=== PATIENT | female | born 1955 | race Caucasian/White ===

== ENCOUNTER 2016-12-29 14:23 | Emergency (ER) | payer OTHER ==
[2016-12-29 14:37] VITALS: BMI 32.9
[2016-12-29] MEDS ORDERED: ASPIRIN 81 MG CHEWABLE TABLETS PO ONE (14:44)
--- NOTE | 2016-12-29 14:44 | PDOC ---
History of Present Illness <Kevin Montes - Last Filed: 12/29/16 18:04> - History of Present Illness Initial Comments: 12/29/16 16:06 The patient is a 61 year old female with a past medical hx of substance abuse ( chronic opioid use and dependency), anxiety, seizures, hypothyroidism, hyperlipidemia, hypertension, 3 [place], and former heroin use who presents to the ED complaining of left sided chest pain. The patient denies any associated symptoms. She notes she uses a wheelchair to ambulate because she needs double total knee replacements. The patient denies SOB, chills, fever The patient denies nausea, vomiting Allergies: Penicillin, Phenobarbita <Jaelyn Stapleton - Last Filed: 12/29/16 18:15> - General Chief Complaint: Chest Pain Stated Complaint: CHEST PAIN Time Seen by Provider: 12/29/16 14:43 Past History - Past Medical History Anemia: No Asthma: No Cancer: No Cardiac Disorders: Yes ([place]) CVA: No COPD: No Dementia: No Diabetes: No GI Disorders: No Disorders: No HTN: Yes Hypercholesterolemia: Yes Liver Disease: No Psychiatric Problems: Yes (anxiety disorder) Suicide Attempt (Hx): No Seizures: Yes Thyroid Disease: Yes (Hypothyroid) - Surgical History Lung Surgery: Yes (L. Lung) - Immunization History Immunization Up to Date: Yes - Psycho/Social/Smoking Cessation Hx Anxiety: No Suicidal Ideation: No Smoking History: Current every day smoker Have you smoked in the past 12 months: Yes Number of Cigarettes Smoked Daily: 3 If you are a former smoker, when did you quit?: 03/18/15 Information on smoking cessation initiated: No 'Breaking Loose' booklet given: 07/07/16 Hx Alcohol Use: No Drug/Substance Use Hx: No Substance Use Type: None, Prescribed Hx Substance Use Treatment: Yes <Kevin Montes - Last Filed: 12/29/16 18:04> <Jaelyn Stapleton - Last Filed: 12/29/16 18:15> - Past Medical History Allergies/Adverse Reactions: Allergies Allergy/AdvReac Type Severity Reaction Status Date / Time Penicillins Allergy Severe Swelling Verified 12/29/16 14:37 phenobarbital Allergy Verified 12/29/16 14:37 Home Medications: Ambulatory Orders Alprazolam [Xanax] 2 mg PO TID 05/20/16 Aspirin [ASA -] 81 mg PO DAILY 05/20/16 Levothyroxine [Synthroid -] 125 mcg PO DAILY 05/20/16 Methadone [Dolophine -] 110 mg PO DAILY 05/20/16 Oxycodone HCl 30 mg PO QID 05/20/16 Atorvastatin Ca [Lipitor] 80 mg PO HS 07/08/16 Diazepam [Valium] 1.25 mg PO DAILY 07/08/16 Diphenhydramine [Benadryl -] 50 mg PO HS 07/08/16 Olanzapine [Zyprexa -] 5 mg PO HS 07/08/16 Omeprazole [Prilosec] 40 mg PO ACBK 07/08/16 Zolpidem Tartrate [Ambien] 10 mg PO HS 07/08/16 Review of Systems - Review of Systems Able to Perform ROS?: Yes Comments:: 12/29/16 16:06 GENERAL/CONSTITUTIONAL: No fever or chills. No weakness. HEAD, EYES, EARS, NOSE AND THROAT: No change in vision. No ear pain or discharge. No sore throat. CARDIOVASCULAR: +Chest pain. No shortness of breath. RESPIRATORY: No cough, wheezing, or hemoptysis. GASTROINTESTINAL: No nausea, vomiting, diarrhea or constipation. GENITOURINARY: No dysuria, frequency, or change in urination. MUSCULOSKELETAL: No joint or muscle swelling or pain. No neck or back pain. SKIN: No rash NEUROLOGIC: No headache, vertigo, loss of consciousness, or change in strength/ sensation. ENDOCRINE: No increased thirst. No abnormal weight change. HEMATOLOGIC/LYMPHATIC: No anemia, easy bleeding, or history of blood clots. ALLERGIC/IMMUNOLOGIC: No hives or skin allergy. <Jaelyn Stapleton - Last Filed: 12/29/16 18:15> *Physical Exam - Vital Signs Last Vital Signs Temp Pulse Resp BP Pulse Ox 97.5 F L 75 18 117/83 100 12/29/16 14:28 12/29/16 14:28 12/29/16 14:28 12/29/16 14:28 12/29/16 14:28 <Kevin Montes - Last Filed: 12/29/16 18:04> - Vital Signs Last Vital Signs Temp Pulse Resp BP Pulse Ox 97.5 F L 75 18 117/83 100 12/29/16 14:28 12/29/16 14:28 12/29/16 14:28 12/29/16 14:28 12/29/16 14:28 - Physical Exam Comments: 12/29/16 16:06 GENERAL: +Appears uneasy, anxious. Awake, alert, and fully oriented HEAD: No signs of trauma EYES: PERRLA, EOMI, sclera anicteric, conjunctiva clear ENT: Auricles normal inspection, hearing grossly normal, nares patent, oropharynx clear without exudates. Moist mucosa NECK: Normal ROM, supple, no lymphadenopathy, JVD, or masses LUNGS: Breath sounds equal, clear to auscultation bilaterally. No wheezes, and no crackles HEART: Regular rate and rhythm, normal S1 and S2, no murmurs, rubs or gallops ABDOMEN: Soft, nontender, normoactive bowel sounds. No guarding, no rebound. No masses EXTREMITIES: Normal range of motion, no edema. No clubbing or cyanosis. No cords, erythema, or tenderness NEUROLOGICAL: Cranial nerves II through XII grossly intact. Normal speech, normal gait SKIN: Warm, Dry, normal turgor, no rashes or lesions noted. <Jaelyn Stapleton - Last Filed: 12/29/16 18:15> Heart Score/ECG Review - ECG Impressions Comment:: 12/29/16 14:47 EKG performed at 14:33 NSR at a rate of [address] and T wave abnormality <Jaelyn Stapleton - Last Filed: 12/29/16 18:15> ED Treatment Course - LABORATORY CBC & Chemistry Diagram: 12/29/16 15:42 12/29/16 15:42 <Kevin Montes - Last Filed: 12/29/16 18:04> - LABORATORY CBC & Chemistry Diagram: 12/29/16 15:42 12/29/16 15:42 <Jaelyn Stapleton - Last Filed: 12/29/16 18:15> Medical Decision Making - Medical Decision Making 12/29/16 18:14 The patient is a 61 year old female with a past medical hx of substance abuse ( chronic opioid use and dependency), anxiety, seizures, hypothyroidism, hyperlipidemia, hypertension, 3 [place], and former heroin use who presents to the ED complaining of left sided chest pain. The plan is to order labs and EKG. The patient is requesting pain medication while in the ED. The patient must follow up with her pain management doctor for her pain The patient will be discharged. Discussed the plan for discharge with the patient. The patient understands and agrees with the plan. All questions answered. <Jaelyn Stapleton - Last Filed: 12/29/16 18:15> *DC/Admit/Observation/Transfer - Discharge Dispostion Admit: No - Attestations Physician Attestion: 12/29/16 14:44 I, Dr. Kevin Montes, attest that this document has been prepared under my direction and personally reviewed by me in its entirety. I further attest, that it accurately reflects all work, treatment, procedures and medical decision -making performed by me. <Kevin Montes - Last Filed: 12/29/16 18:04> - Attestations Scribe Attestion: 12/29/16 14:48 Documentation prepared by Jaelyn Stapleton, acting as senior medical director for Kevin Montes MD/. <Jaelyn Stapleton - Last Filed: 12/29/16 18:15> Diagnosis at time of Disposition: Chronic pain disorder, Anxiety associated with depression, Medication addiction , continuous, Methadone maintenance therapy patient, Malingering Contusion, knee Qualifiers: Encounter type: sequela Laterality: right Qualified Code(s): S80.01XS - Contusion of right knee, sequela Anxiety disorder Qualifiers: Anxiety disorder type: generalized anxiety disorder Qualified Code(s): F41.1 - Generalized anxiety disorder - Discharge Dispostion Disposition: HOME Condition at time of disposition: Good - Patient Instructions Printed Discharge Instructions: DI for Atypical Chest Pain, DI for Anxiety -- Adult, Generalized Anxiety Disorder, DI for Depression -- Adult, DI for Opioid Addiction, DI for Drug Abuse and Drug Addiction Additional Instructions: Jocelin, You have to get your pain medicine from your pain managment physician. Be Well- Dr. Kevin Montes
[2016-12-29] MEDS ORDERED: SODIUM CHLORIDE 1,000 ML IV SCH (14:45)
[2016-12-29] MEDS ORDERED: ASPIRIN 81 MG CHEWABLE TABLETS ONE (15:03)
[2016-12-29 15:52] LABS: MEAN PLT VOLUME 8.6 fl (7.5-11.1); URINE APPEARANCE CLEAR; URINE BILIRUBIN NEGATIVE (NEGATIVE); URINE BLOOD NEGATIVE (NEGATIVE); URINE COLOR LTYELLOW; URINE GLUCOSE (UA) NEGATIVE (NEGATIVE); URINE KETONE NEGATIVE (NEGATIVE); URINE NITRITE NEGATIVE (NEGATIVE); URINE PROTEIN NEGATIVE (NEGATIVE); URINE UROBILINOGEN NEGATIVE E.U./dl (0.2-1.0)
[2016-12-29 15:57] LABS: URINE LEUK ESTERASE TRACE (NEGATIVE)
[2016-12-29 15:58] LABS: URINE BACTERIA MODERATE /hpf (NONE SEEN); URINE WBC 3 /hpf (3-5)
[2016-12-29 16:00] LABS: BASOPHIL 0.8 % (0-2.0); EOSINOPHIL 1.7 % (0-4.5); MCH 29.5 pg (25.7-33.7); MCHC 32.9 g/dl (32.0-36.0); MEAN CELL VOLUME 89.5 fl (80-96); NEUTROPHILS 73.9 % (42.8-82.8); RDW 14.4 % (11.6-15.6); WHITE BLOOD COUNT 10.8 K/mm3 (4.0-10.0)
[2016-12-29 16:19] LABS: INR 1.13 (0.82-1.09); PROTHROMBIN TIME (PATIENT) 12.5 SEC (9.98-11.88)
[2016-12-29 16:28] LABS: URINE MARIJUANA THC NEGATIVE ng/ml (CUTOFF=50)
[2016-12-29 16:31] LABS: ALBUMIN 3.2 g/dl (3.4-5.0); ANION GAP 8 (8-16); BILIRUBIN,TOTAL 0.2 mg/dL (0.2-1.0); CALCIUM 8.3 mg/dL (8.5-10.1); CO2 32 mmol/L (21-32); CREATININE 0.7 mg/dL (0.55-1.02); GLUCOSE,RANDOM 80 mg/dL (74-106); MAGNESIUM 2.1 mg/dL (1.8-2.4); SGOT/AST 12 U/L (15-37); SGPT/ALT 15 U/L (12-78); TOT PROT 7.4 g/dl (6.4-8.2)
[2016-12-29 16:34] LABS: ALK PHOS 93 U/L (45-117); TROPONIN I < 0.02 ng/ml (0.00-0.05)
[2016-12-29 17:39] VITALS: BP 131/96; PULSE 60; TEMP 98.1
--- NOTE | 2016-12-29 18:42 | EKG ---
Test Reason : Blood Pressure : / mmHG Vent. Rate : 069 BPM Atrial Rate : 069 BPM P-R Int : 142 ms QRS Dur : 086 ms QT Int : 418 ms P-R-T Axes : 074 079 074 degrees QTc Int : 447 ms NORMAL SINUS RHYTHM NONSPECIFIC ST AND T WAVE ABNORMALITY ABNORMAL ECG WHEN COMPARED WITH ECG OF 09-JUL-2016 20:39, QT HAS SHORTENED Confirmed by ARCHANA RODRÍGUEZ, SERAFIN ([id number]) on 12/29/2016 6:42:13 PM Referred By: Confirmed By:SERAFIN MAGAÑA MD
== END 2016-12-29 18:42 | disposition home or self-care (01) ==
LOC: JER 14:23
PROC: 3E0337Z Introduction of Electrolytic and Water Balance Substance into Peripheral Vein, Percutaneous Approach (ICD-10-PCS; principal; 2016-12-29)
DX: R07.89 Other chest pain (principal); I25.2 Old myocardial infarction; I10 Essential (primary) hypertension; F17.210 Nicotine dependence, cigarettes, uncomplicated; G40.909 Epilepsy, unspecified, not intractable, without status epilepticus; E03.9 Hypothyroidism, unspecified; E78.00 Pure hypercholesterolemia, unspecified; F41.1 Generalized anxiety disorder; F11.20 Opioid dependence, uncomplicated; Z76.5 Malingerer [conscious simulation]
CPT/HCPCS: 36415; 71010-TC; 80053; 80307; 81003; 81015; 82550; 83735; 83880; 84484; 85025; 85610; 93005; 93010; 96360; 96361; 99284-25

== ENCOUNTER 2017-01-22 07:28 | Emergency (ER) | payer OTHER ==
--- NOTE | 2017-01-22 07:51 | PDOC ---
History of Present Illness - General Chief Complaint: Vaginal Sxs Stated Complaint: ABD PAIN Time Seen by Provider: 01/22/17 07:40 History Source: Patient Exam Limitations: No Limitations - History of Present Illness Initial Comments: 01/22/17 07:51 CHIEF COMPLAINT: Vaginal pain HISTORY OF PRESENT ILLNESS: This is a 61 year old female with a history of methadone dependence, chronic leg pain, and hypothyroidism who presents complaining of one month of burning on urination and hematuria. She denies fevers, chills, back pain, vomiting, or any other symptoms. She has been self- medicating with oxycodone. Patient follows with a PCP in the [place]. She does not see an granite setter. She is not sexually active. V/s on arrival are all within normal limits. REVIEW OF SYSTEMS: GENERAL/CONSTITUTIONAL: No fever or chills. No weakness. No weight change. HEAD, EYES, EARS, NOSE AND THROAT: No change in vision. No ear pain or discharge. No sore throat. CARDIOVASCULAR: No chest pain or palpitations. RESPIRATORY: No cough, wheezing, or shortness of breath. GASTROINTESTINAL: No nausea, vomiting, diarrhea or constipation. GENITOURINARY: Dysuria, hematuria. No abnormal vaginal discharge. MUSCULOSKELETAL: No joint or muscle swelling or pain. No neck or back pain. SKIN: No rash or easy bruising. NEUROLOGIC: No headache, vertigo, loss of consciousness, or loss of sensation. PSYCHIATRIC: No depression or anxiety. ENDOCRINE: No increased thirst. No abnormal weight change. HEMATOLOGIC/LYMPHATIC: No anemia, easy bleeding, or history of blood clots. ALLERGIC/IMMUNOLOGIC: No hives or skin allergy. No latex allergy. PHYSICAL EXAM: GENERAL: The patient is awake, alert, and fully oriented, in no acute distress. HEAD: Normal with no signs of trauma. ENT: Pupils equal, round and reactive to light, extraocular movements intact, sclera anicteric, conjunctiva clear. Neck supple. LUNGS: Clear to auscultation bilaterally. Normal excursion. No respiratory distress or use of accessory muscles. CV: RRR, S1/S2, no MRG. Cap refill < 2 sec. ABDOMEN: Soft, non-distended, non-tender. EXTREMITIES: Normal range of motion, no edema. NEUROLOGICAL: Normal speech, normal gait. CN II-XII grossly intact. PSYCH: Normal mood, normal affect. SKIN: Warm, dry, normal turgor, no rashes or lesions noted. NATURE PHOTOGRAPHER: Normal external exam. No abnormal vaginal discharge. No CMT or adnexal tenderness. Past History - Past Medical History Allergies/Adverse Reactions: Allergies Allergy/AdvReac Type Severity Reaction Status Date / Time Penicillins Allergy Severe Swelling Verified 01/22/17 07:41 peanut Allergy Unknown Verified 01/22/17 07:41 phenobarbital Allergy Verified 01/22/17 07:41 Home Medications: Ambulatory Orders Levothyroxine [Synthroid -] 125 mcg PO DAILY 01/22/17 Methadone [Dolophine -] 110 mg PO DAILY 01/22/17 Oxycodone HCl 30 mg PO QID 01/22/17 Phenazopyridine HCl [Pyridium] 200 mg PO TID #9 tablet 01/22/17 Sulfamethoxazole/Trimethoprim [Bactrim Ds Tablet] 1 each PO BID #14 tablet 01/22 Anemia: No Asthma: No Cancer: No Cardiac Disorders: Yes ([place]) CVA: No COPD: No Dementia: No Diabetes: No GI Disorders: No Disorders: No HTN: Yes Hypercholesterolemia: Yes Liver Disease: No Psychiatric Problems: Yes (anxiety disorder) Suicide Attempt (Hx): No Seizures: Yes Thyroid Disease: Yes (Hypothyroid) Other medical history: METHADONE MAINTENANCE. DIFFICULTY AMBULATING. - Surgical History Lung Surgery: Yes (L. Lung) - Immunization History Immunization Up to Date: Yes - Psycho/Social/Smoking Cessation Hx Anxiety: Yes Suicidal Ideation: No Smoking History: Current every day smoker Have you smoked in the past 12 months: Yes Number of Cigarettes Smoked Daily: 3 If you are a former smoker, when did you quit?: 03/18/15 Information on smoking cessation initiated: No 'Breaking Loose' booklet given: 07/07/16 Hx Alcohol Use: No Drug/Substance Use Hx: Yes (on methadone program.) Substance Use Type: None Hx Substance Use Treatment: Yes *Physical Exam - Vital Signs Last Vital Signs Temp Pulse Resp BP Pulse Ox 98 F 80 18 116/63 99 01/22/17 07:38 01/22/17 07:38 01/22/17 07:38 01/22/17 07:38 01/22/17 07:38 Medical Decision Making - Medical Decision Making 01/22/17 09:23 A/P: 61 year old female with dysuria/hematuria. -UA with 1941 WBCs, consistent with UTI -PCN allergy; will treat with Bactrim -Followup instructions and return precautions reviewed *DC/Admit/Observation/Transfer Diagnosis at time of Disposition: Urinary tract infection Qualifiers: Urinary tract infection type: acute cystitis Hematuria presence: with hematuria Qualified Code(s): N30.01 - Acute cystitis with hematuria - Discharge Dispostion Admit: No - Prescriptions Prescriptions: Sulfamethoxazole/Trimethoprim [Bactrim Ds Tablet] 1 each PO BID #14 tablet Phenazopyridine HCl [Pyridium] 200 mg PO TID #9 tablet - Patient Instructions Printed Discharge Instructions: DI for Urinary Tract Infection (UTI) Additional Instructions: You were seen today for urinary tract infection. Take Bactrim (an antibiotic) and Pyridium (for bladder discomfort) as prescribed. This medication roxann turn your urine orange. Follow up with sheet metal pattern cutter for regular care at [address] [place] [address]. Call [phone] for an appointment. Return here for fever or any other concerning symptoms.
[2017-01-22 08:05] VITALS: TEMP 98; BMI 32.4
[2017-01-22 08:38] LABS: URINE APPEARANCE CLOUDY; URINE BILIRUBIN NEGATIVE (NEGATIVE); URINE COLOR YELLOW; URINE GLUCOSE (UA) NEGATIVE (NEGATIVE); URINE KETONE TRACE (NEGATIVE); URINE NITRITE NEGATIVE (NEGATIVE); URINE UROBILINOGEN NEGATIVE E.U./dl (0.2-1.0)
[2017-01-22 08:45] LABS: URINE BLOOD 2+ (NEGATIVE); URINE LEUK ESTERASE 3+ (NEGATIVE); URINE PROTEIN 1+ (NEGATIVE)
[2017-01-22] MEDS ORDERED: PHENAZOPYRIDINE HCL 100 MG TABLET (FP) PO ONE (09:02)
[2017-01-22] MEDS ORDERED: SULFAMETHOXAZOLE/TRIMETHOPRIM 800MG/160MG D.S. TABLET PO ONE (09:02)
[2017-01-22 09:09] LABS: GRANULAR CASTS 5 /lpf; URINE BACTERIA MODERATE /hpf (NONE SEEN); URINE HYALINE CAST 11 /lpf; URINE MUCUS RARE; URINE RBC 14 /hpf (0-3); URINE WBC 1941 /hpf (3-5)
[2017-01-22] MEDS ORDERED: PHENAZOPYRIDINE HCL 100 MG TABLET (FP) ONE (09:27)
[2017-01-22] MEDS ORDERED: SULFAMETHOXAZOLE/TRIMETHOPRIM 800MG/160MG D.S. TABLET ONE (09:27)
--- NOTE | 2017-01-22 09:48 | PDOC ---
*Physical Exam - Vital Signs Last Vital Signs Temp Pulse Resp BP Pulse Ox 98 F 80 18 116/63 99 01/22/17 07:38 01/22/17 07:38 01/22/17 07:38 01/22/17 07:38 01/22/17 07:38 ED Treatment Course - ADDITIONAL ORDERS Additional order review: Laboratory Results 01/22/17 08:00 Urine Color Yellow Urine Appearance Cloudy Urine pH 5.0 Ur Specific Eek 1.012 Urine Protein 1+ H Urine Glucose (UA) Negative Urine Ketones Trace H Urine Blood 2+ H Urine Nitrite Negative Urine Bilirubin Negative Urine Urobilinogen Negative Ur Leukocyte Esterase 3+ H D Urine RBC 14 Urine WBC 1941 Ur Epithelial Cells Rare Urine Bacteria Moderate Hyaline Casts 11 Granular Casts 5 Urine Mucus Rare - Medications Given in the ED: ED Medications Discontinued Medications Generic Name Dose Route Start Last Admin Trade Name Freq PRN Reason Stop Dose Admin Phenazopyridine HCl 200 mg 01/22/17 09:02 01/22/17 09:31 Pyridium - PO 01/22/17 09:03 200 mg ONCE ONE Administration Trimethoprim/Sulfamethoxazole 1 each 01/22/17 09:02 01/22/17 09:31 Bactrim Ds - PO 01/22/17 09:03 1 each ONCE ONE Administration Medical Decision Making - Medical Decision Making 01/22/17 09:46 Patient seen and evaluated with the nurse practitioner. I agree with the overall evaluation, assessment, and management with the following summary of visit: 61-year-old female nondiabetic presents with pelvic complaints. Urinalysis consistent with UTI, vital signs normal, will discharge on Bactrim and understands return criteria. *DC/Admit/Observation/Transfer Diagnosis at time of Disposition: Urinary tract infection Qualifiers: Urinary tract infection type: acute cystitis Hematuria presence: with hematuria Qualified Code(s): N30.01 - Acute cystitis with hematuria - Prescriptions Prescriptions: Sulfamethoxazole/Trimethoprim [Bactrim Ds Tablet] 1 each PO BID #14 tablet Phenazopyridine HCl [Pyridium] 200 mg PO TID #9 tablet - Referrals - Patient Instructions Printed Discharge Instructions: DI for Urinary Tract Infection (UTI) Additional Instructions: You were seen today for urinary tract infection. Take Bactrim (an antibiotic) and Pyridium (for bladder discomfort) as prescribed. This medication roxann turn your urine orange. Follow up with occ therapy asst for regular care at [address] [place] [address]. Call [phone] for an appointment. Return here for fever or any other concerning symptoms. - Post Discharge Activity
[2017-01-22 10:12] VITALS: BP 129/66; PULSE 65
--- NOTE | 2017-01-24 14:22 | PDOC ---
Patient Follow-up (Call Back) - Post ED Follow - Up Disposition at time of original discharge: HOME Reason for Call Back: Abnwl. Microbiology Signs/Symptoms Improved: Yes - Disposition Additional Instructions/Notes: Called out an Rx for Flagyl to treat BV. Spoke with the patient and informed her. She states she will picker packer the prescription tomorrow.
== END 2017-01-22 10:21 | disposition home or self-care (01) ==
LOC: JER 07:28
DX: N30.01 Acute cystitis with hematuria (principal); F11.20 Opioid dependence, uncomplicated; E03.9 Hypothyroidism, unspecified; F41.9 Anxiety disorder, unspecified
CPT/HCPCS: 81003; 81015; 87070; 87086; 87205; 99282-25

== ENCOUNTER 2017-10-07 13:32 | Emergency (ER) | payer OTHER ==
[2017-10-07 14:01] VITALS: TEMP 98.2; BMI 34.5
--- NOTE | 2017-10-07 14:17 | PDOC ---
History of Present Illness - General Chief Complaint: Urinary Problem Stated Complaint: ABD PAIN Time Seen by Provider: 10/07/17 13:54 - History of Present Illness Initial Comments: 61 year old female with PMH of remote IV heroin use (on methadone 140 daily, recently increased, 30 years clean), chronic leg pain, anxiety (on Xanax), nonspecific longeterm memory issues, and hypothyroidism who presents complaining of one month of malodorous urine and dysuria. She also states that she has some lower abdominal pain and decreased appetite. She denies fevers, chills, back pain, sexual activity, vomiting, or any other symptoms. She was here 9 months prior with very similar symptoms with possible vaginal culture ( gardeneralla vaginalis) and "contaminated" urine culture then was treated with Bactrim and Flagyl with good results. 10/07/17 14:13 Past History - Past Medical History Allergies/Adverse Reactions: Allergies Allergy/AdvReac Type Severity Reaction Status Date / Time Penicillins Allergy Severe Swelling Verified 10/07/17 13:53 peanut Allergy Unknown Verified 10/07/17 13:53 phenobarbital Allergy Verified 10/07/17 13:53 Home Medications: Ambulatory Orders Levothyroxine [Synthroid -] 125 mcg PO DAILY 01/22/17 Epinephrine [Epipen 2-Albin] 0.3 mg IJ ASDIR 10/07/17 Methadone [Dolophine -] 140 mg PO DAILY 10/07/17 Ranitidine [Zantac -] 150 mg PO DAILY 10/07/17 Sulfamethoxazole/Trimethoprim [Bactrim Ds -] 1 tab PO BID #14 tablet 10/07/17 Anemia: No Asthma: No Cancer: No Cardiac Disorders: Yes ([place]) CVA: No COPD: No Dementia: No Diabetes: No GI Disorders: No Disorders: No HTN: Yes Hypercholesterolemia: Yes Liver Disease: No Psychiatric Problems: Yes (anxiety disorder) Seizures: Yes Thyroid Disease: Yes (Hypothyroid) - Surgical History Lung Surgery: Yes (L. Lung) - Immunization History Immunization Up to Date: Yes - Suicide/Smoking/Psychosocial Hx Smoking History: Current every day smoker Have you smoked in the past 12 months: Yes Number of Cigarettes Smoked Daily: 3 If you are a former smoker, when did you quit?: 03/18/15 Information on smoking cessation initiated: Yes 'Breaking Loose' booklet given: 07/07/16 Hx Alcohol Use: No Drug/Substance Use Hx: Yes Substance Use Type: None Hx Substance Use Treatment: Yes Review of Systems - Review of Systems Constitutional: No: Chills, Diaphoresis, Fever Respiratory: No: Cough Cardiac (ROS): No: Chest Pain, Lightheadedness ABD/GI: Yes: Poor Appetite. No: Diarrhea, Nausea, Vomiting : Yes: Burning, Dysuria. No: Discharge, Hematuria Musculoskeletal: Yes: Joint Pain. No: Back Pain Integumentary: No: Bruising Psychiatric: Yes: Anxiety, Frequent Crying, Stressors, Emotional Problems *Physical Exam - Vital Signs Last Vital Signs Temp Pulse Resp BP Pulse Ox 98.2 F 70 18 142/84 95 10/07/17 13:57 10/07/17 13:57 10/07/17 13:57 10/07/17 13:57 10/07/17 13:57 - Physical Exam General Appearance: Yes: Nourished, Appropriately Dressed. No: Apparent Distress HEENT: positive: EOMI, SEAN (constricted but reactive pupils), Normal ENT Inspection, Normal Voice Neck: positive: Trachea midline, Normal Thyroid, Supple. negative: Tender, Rigid Respiratory/Chest: positive: Lungs Clear, Normal Breath Sounds. negative: Chest Tender, Respiratory Distress, Accessory Muscle Use Cardiovascular: positive: Regular Rhythm, Regular Rate. negative: Murmur Female Pelvic Exam: positive: normal external exam, adnexal tenderness ( bilateral). negative: lesions Gastrointestinal/Abdominal: positive: Normal Bowel Sounds, Tender (Mild tenderness to palpation in bilateral lower abdominal quadrants to deep palpation. ), Flat, Soft Musculoskeletal: positive: Normal Inspection Extremity: positive: Normal Capillary Refill, Normal Inspection, Normal Range of Motion Integumentary: positive: Normal Color, Dry, Warm Neurologic: positive: Fully Oriented, Alert, Normal Response. negative: Normal Mood/Affect (Cries inappropriately. Overall thought process and speech seems slightly delayed. 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 Afebrile with stable vitals. 10/07/17 14:24 Performed UA, UC, vaginal exam (significant for prolapsed uterus and adnexal tenderness), and will send for transvaginal ultrasound given pe. 10/07/17 14:54 UA positive for whites with leuk esterase pending. TVUS 10/07/17 17:00 *DC/Admit/Observation/Transfer Diagnosis at time of Disposition: UTI (urinary tract infection) Qualifiers: Urinary tract infection type: acute cystitis Hematuria presence: without hematuria Qualified Code(s): N30.00 - Acute cystitis without hematuria - Discharge Dispostion Disposition: HOME Condition at time of disposition: Improved Admit: No - Prescriptions Prescriptions: Sulfamethoxazole/Trimethoprim [Bactrim Ds -] 1 tab PO BID #14 tablet - Referrals - Patient Instructions Printed Discharge Instructions: DI for Urinary Tract Infection (UTI) Additional Instructions: You have an infection of your urine. Please take your antibiotics for the next three days. The ultrasound of your ovaries did not see your ovaries but did not see anything else wrong. Please return if you have worsening pain or new symptoms. Please follow up with your primary care physician as needed. - Post Discharge Activity
--- NOTE | 2017-10-07 14:54 | PDOC ---
Attending Attestation - Resident Resident Name: [email or web address] - ED Attending Attestation I have performed the following: I have examined & evaluated the patient, The case was reviewed & discussed with the resident, I agree w/resident's findings & plan, Exceptions are as noted - HPI HPI: 10/07/17 14:52 61y/o F PSA history on methadone p/w several weeks of foul-smelling urine and dysuria with lower abd/pelvic discomfort. no f/c/flank pain. similar to last time she was in the ED (december) and was diagnosed with both UTI and GV. - Physicial Exam PE: 10/07/17 14:52 VSS, afebrile well appearing, drinking water abd soft/nd. suprapubic discomfort to palpation without guarding/rebound. BS nl. no cvat pelvic per resident - Medical Decision Making 10/07/17 14:53 Patient seen and evaluated with the resident. I agree with the overall evaluation, assessment, and management with the following summary of visit: 61-year-old female presents with suprapubic discomfort and dysuria most consistent with UTI, rule out pelvic pathology. Urinalysis and urine culture Cervical culture, transvaginal ultrasound Otherwise her exam is unremarkable, she is not sexually active for 1 year or at high risk for STI.
[2017-10-07 15:47] LABS: URINE APPEARANCE CLOUDY; URINE BILIRUBIN NEGATIVE (NEGATIVE); URINE BLOOD 1+ (NEGATIVE); URINE COLOR YELLOW; URINE GLUCOSE (UA) NEGATIVE (NEGATIVE); URINE KETONE NEGATIVE (NEGATIVE); URINE NITRITE NEGATIVE (NEGATIVE); URINE PROTEIN NEGATIVE (NEGATIVE); URINE UROBILINOGEN NEGATIVE mg/dL (0.2-1.0)
[2017-10-07 15:48] LABS: URINE LEUK ESTERASE 3+ (NEGATIVE)
[2017-10-07 15:54] LABS: URINE BACTERIA RARE /hpf (NONE SEEN); URINE MUCUS RARE; URINE RBC 2 /hpf (0-3); URINE WBC 17 /hpf (3-5)
[2017-10-07] MEDS ORDERED: SULFAMETHOXAZOLE/TRIMETHOPRIM 800MG/160MG D.S. TABLET PO ONE (16:23)
[2017-10-07] MEDS ORDERED: SULFAMETHOXAZOLE/TRIMETHOPRIM 800MG/160MG D.S. TABLET ONE (16:32)
[2017-10-07 17:22] VITALS: BP 133/78; PULSE 86
[2017-10-07 20:38] LABS: URINE LEUK ESTERASE 2+ (NEGATIVE)
== END 2017-10-07 17:22 | disposition home or self-care (01) ==
LOC: JER 13:32
DX: N30.00 Acute cystitis without hematuria (principal); F41.9 Anxiety disorder, unspecified; F11.20 Opioid dependence, uncomplicated; E03.9 Hypothyroidism, unspecified; G89.29 Other chronic pain
CPT/HCPCS: 76830-TC; 81003; 81015; 87070; 87086; 87205; 99282-25

== ENCOUNTER 2017-10-31 11:08 | Emergency (ER) | payer OTHER ==
[2017-10-31 11:33] VITALS: BP 139/80; PULSE 96; TEMP 98.5; BMI 34.5
--- NOTE | 2017-10-31 11:58 | PDOC ---
History of Present Illness <Gavin Rivas - Last Filed: 10/31/17 12:44> - General History Source: Patient Exam Limitations: No Limitations - History of Present Illness Initial Comments: 10/31/17 15:30 The patient is a 61 year old female, with a significant past medical history of substance abuse on methadone, former heroin use (currently on methadonE) and anxiety, who presents to the emergency department requesting Xanax for withdrawals. The patient reports her next refill on Friday and no longer has any Xanax because she took a few extra doses. The patient reports she takes 2 mg of Xanax three times a day. She reports taking Seroquel this morning prior to arrival that was prescribed to a friend. Pt requesting a dose now but states she will consider going to detox for evaluation. no seizures. She denies recent fevers, chills, or dizziness. She denies recent nausea or vomiting. She denies recent dysuria, frequency, urgency or hematuria. She denies recent chest pain or shortness of breath. Allergies: Penicillins, peanut, phenobarbital Primary Care Physician: Dr. Jeremy Cheung <Joesph Headley - Last Filed: 10/31/17 15:31> - General Chief Complaint: Psychiatric Stated Complaint: WITHDRAWALS Time Seen by Provider: 10/31/17 11:27 Past History - Past Medical History Anemia: No Asthma: No Cancer: No Cardiac Disorders: Yes ([place]) CVA: No COPD: No DVT: No Dementia: No Diabetes: No GI Disorders: No Disorders: No HTN: Yes Hypercholesterolemia: Yes Liver Disease: No Psychiatric Problems: Yes (anxiety disorder) Seizures: Yes Thyroid Disease: Yes (Hypothyroid) - Surgical History Lung Surgery: Yes (L. Lung) - Immunization History Immunization Up to Date: Yes - Suicide/Smoking/Psychosocial Hx Smoking History: Unknown if ever smoked Have you smoked in the past 12 months: No Number of Cigarettes Smoked Daily: 3 If you are a former smoker, when did you quit?: 03/18/15 Information on smoking cessation initiated: No 'Breaking Loose' booklet given: 10/10/17 Hx Alcohol Use: No Drug/Substance Use Hx: No Substance Use Type: None Hx Substance Use Treatment: Yes <Gavin Rivas - Last Filed: 10/31/17 12:44> <Joesph Headley - Last Filed: 10/31/17 15:31> - Past Medical History Allergies/Adverse Reactions: Allergies Allergy/AdvReac Type Severity Reaction Status Date / Time Penicillins Allergy Severe Swelling Verified 10/31/17 11:41 peanut Allergy Unknown Verified 10/31/17 11:41 phenobarbital Allergy Verified 10/31/17 11:41 Home Medications: Ambulatory Orders Levothyroxine [Synthroid -] 125 mcg PO DAILY 01/22/17 Methadone [Dolophine -] 140 mg PO DAILY 10/07/17 Ranitidine [Zantac -] 150 mg PO DAILY 10/07/17 Alprazolam [Xanax] 2 mg PO TID 10/31/17 Review of Systems - Review of Systems Comments:: 10/31/17 15:30 Constitutional - Pt denies Fever, Chills, weakness, HEENT: denies vision changes, sore throat Respiratory: Denies cough, sob, hemoptysis Cardiac: denies chest pain, palpitations, light headedness, leg swelling Abd/GI: +Diarrhea. Denies abd pain, nausea, vomiting, blood per rectum, melena : denies dysuria, frequency, discharge Musculskelatal - denies back pain, joint swelling skin - denies bruising, erythema, rash neurological:+Headache. No numbness, focal weakness, tingling, ataxia, weakness hematologic: denies anemia, easy bruising, easy bleeding <Joesph Headley - Last Filed: 10/31/17 15:31> *Physical Exam - Vital Signs Last Vital Signs Temp Pulse Resp BP Pulse Ox 98.5 F 96 H 20 139/80 96 10/31/17 11:24 10/31/17 11:24 10/31/17 11:24 10/31/17 11:24 10/31/17 11:24 <Gavin Rivas - Last Filed: 10/31/17 12:44> - Vital Signs Last Vital Signs Temp Pulse Resp BP Pulse Ox 98.5 F 96 H 20 139/80 96 10/31/17 11:24 10/31/17 11:24 10/31/17 11:24 10/31/17 11:24 10/31/17 11:24 - Physical Exam Comments: 10/31/17 15:30 GENERAL: The patient is awake, alert, and fully oriented, Nontoxic - in no acute distress. HEAD: Normocephalic, atraumatic. EYES: extraocular movements intact, sclera anicteric, conjunctiva clear. ENT: Normal voice, Moist mucous membranes. NECK: Normal range of motion, supple without lymphadenopathy, JVD, or masses. LUNGS: Breath sounds equal, clear to auscultation bilaterally. No wheezes, no crackles, no rales. HEART: Regular rate and rhythm, normal S1 and S2 without murmur, rub or gallop. ABDOMEN: Soft, nontender, normoactive bowel sounds. No guarding, no rebound. No masses. EXTREMITIES: Normal range of motion, no edema. No clubbing or cyanosis. No cords, erythema, or tenderness. NEUROLOGICAL: No facial assymetry, Normal speech, normal gait. PSYCH: anxious appearing SKIN: Warm, Dry, normal turgor, no rashes or lesions noted. <Joesph Headley - Last Filed: 10/31/17 15:31> ED Treatment Course - Medications Given in the ED: ED Medications Discontinued Medications Generic Name Dose Route Start Last Admin Trade Name Lawsonq PRN Reason Stop Dose Admin Alprazolam 2 mg 10/31/17 12:19 10/31/17 13:15 Xanax - PO 10/31/17 12:20 2 mg ONCE ONE Administration <Joesph Headley - Last Filed: 10/31/17 15:31> Medical Decision Making - Medical Decision Making 10/31/17 11:53 61y F hx of heroin abuse (on methadone currently), anxiety, presents with complaint of requesting more meds. The pt states she ran out of her xanax 2 days ago and doesnt feel well. she has an appt with her doctor on friday (Dr. amaro). pt denies any seizure like activity, abd pain, cp, f/c, back pain. on exam she appears well, in no distress will ck with her PMD regarding her dosage no overt signs of withdrawal 10/31/17 12:19 pt is interested in detox - will refer the pt to detox will dc the pt with pmd fu I discussed the physical exam findings, ancillary test results and final diagnoses with the patient. I answered all of the patient's questions. The patient was satisfied with the care received and felt comfortable with the discharge plan and treatment plan. The patient will call their primary care physician within 24 hours to arrange follow-up and will return to the Emergency Department with any new, persistent or worsening symptoms. <Gavin Rivas - Last Filed: 10/31/17 12:44> *DC/Admit/Observation/Transfer - Discharge Dispostion Admit: No <Gavin Rivas - Last Filed: 10/31/17 12:44> - Attestations Scribe Attestion: 10/31/17 15:31 Documentation prepared by Joesph Headley, acting as medical psychotherapist for Gavin Rivas MD. <Joesph Headley - Last Filed: 10/31/17 15:31> Diagnosis at time of Disposition: Anxiety - Discharge Dispostion Disposition: HOME Condition at time of disposition: Improved - Referrals Referrals: Jeremy Amaro [Other] - Patient Instructions Printed Discharge Instructions: DI for Anxiety -- Adult Additional Instructions: Please go to [facility] for detox Print Language: WELSH
[2017-10-31] MEDS ORDERED: ALPRAZolam 2 MG TABLET PO ONE (12:19)
[2017-10-31] MEDS ORDERED: ALPRAZolam 2 MG TABLET ONE (13:06)
== END 2017-10-31 14:03 | disposition home or self-care (01) ==
LOC: JER 11:08
DX: F41.9 Anxiety disorder, unspecified (principal); I25.2 Old myocardial infarction; I10 Essential (primary) hypertension; E78.00 Pure hypercholesterolemia, unspecified; E03.9 Hypothyroidism, unspecified; F11.10 Opioid abuse, uncomplicated
CPT/HCPCS: 99282-25

== ENCOUNTER 2017-12-29 12:21 | Emergency (ER) | payer OTHER ==
--- NOTE | 2017-12-29 12:31 | PDOC ---
History of Present Illness - General Stated Complaint: FALL Time Seen by Provider: 12/29/17 12:30 - History of Present Illness Initial Comments: 12/29/17 13:05 Ms. Del Rosario is a 62 yo female w/ pmh of distant heroin abuse (currently only daily methadone), anxiety, hypothyroidism, benign breast mass and chronic leg pain, thrombocytopenia who presents for evaluation of left knee pain after she fell down yesterday. She reports this was a mechanical fall tripping over her motorized scooter. Denies and LOC or head injury. She has been largely unable to range the knee after falling and reports it as severe pain. The patient denies chest pain, shortness of breath, headache and dizziness. Denies fever, chills, nausea, vomit, diarrhea and constipation. Denies dysuria, frequency, urgency and hematuria. Allergies: Penicillins, phenobarbital Past History - Past Medical History Allergies/Adverse Reactions: Allergies Allergy/AdvReac Type Severity Reaction Status Date / Time Penicillins Allergy Severe Swelling Verified 12/29/17 12:33 peanut Allergy Unknown Verified 12/29/17 12:33 phenobarbital Allergy Verified 12/29/17 12:33 Home Medications: Ambulatory Orders Levothyroxine [Synthroid -] 125 mcg PO DAILY 01/22/17 Methadone [Dolophine -] 140 mg PO DAILY 10/07/17 Ranitidine [Zantac -] 150 mg PO DAILY 10/07/17 Alprazolam [Xanax] 2 mg PO TID 10/31/17 Epinephrine [Epipen] 0.3 mg IJ PRN PRN 12/29/17 Ibuprofen [Motrin -] 400 mg PO PRN PRN 12/29/17 Anemia: No Asthma: No Cancer: No Cardiac Disorders: Yes ([place]) CVA: No COPD: No DVT: No Dementia: No Diabetes: No GI Disorders: No Disorders: No HTN: Yes Hypercholesterolemia: Yes Liver Disease: No Psychiatric Problems: Yes (anxiety disorder) Seizures: Yes Thyroid Disease: Yes (Hypothyroid) - Surgical History Lung Surgery: Yes (L. Lung) - Immunization History Immunization Up to Date: Yes - Suicide/Smoking/Psychosocial Hx Smoking History: Unknown if ever smoked Have you smoked in the past 12 months: No Number of Cigarettes Smoked Daily: 3 If you are a former smoker, when did you quit?: 03/18/15 'Breaking Loose' booklet given: 10/10/17 Hx Alcohol Use: No Drug/Substance Use Hx: No Substance Use Type: None Hx Substance Use Treatment: Yes Review of Systems - Review of Systems Comments:: 12/29/17 13:27 GENERAL/CONSTITUTIONAL: No fever or chills. No weakness. HEAD, EYES, EARS, NOSE AND THROAT: No change in vision. No ear pain or discharge. No sore throat. CARDIOVASCULAR: No chest pain or shortness of breath RESPIRATORY: No cough, wheezing, or hemoptysis. GASTROINTESTINAL: No nausea, vomiting, diarrhea or constipation. GENITOURINARY: No dysuria, frequency, or change in urination. MUSCULOSKELETAL: +Severe left knee pain w/ any flexion/extension of knee SKIN: No rash NEUROLOGIC: No headache, vertigo, loss of consciousness, or change in strength/ sensation. ENDOCRINE: No increased thirst. No abnormal weight change HEMATOLOGIC/LYMPHATIC: No anemia, easy bleeding, or history of blood clots. ALLERGIC/IMMUNOLOGIC: No hives or skin allergy. *Physical Exam - Physical Exam Comments: 12/29/17 13:28 GENERAL: Awake, alert, and fully oriented, in no acute distress HEAD: No signs of trauma, normocephalic, atraumatic EYES: PERRLA, EOMI, sclera anicteric, conjunctiva clear ENT: Auricles normal inspection, hearing grossly normal, nares patent, oropharynx clear without exudates. Moist mucosa NECK: Normal ROM, supple, no lymphadenopathy, JVD, or masses LUNGS: No distress, speaks full sentences, clear to auscultation bilaterally HEART: Regular rate and rhythm, normal S1 and S2, no murmurs, rubs or gallops, peripheral pulses normal and equal bilaterally. ABDOMEN: Soft, nontender, normoactive bowel sounds. No guarding, no rebound. No masses EXTREMITIES: +Left knee acutely swollen and tender. Patient experiencing severe pain with any flexion/extension. Further exam limited by reported pain. NEUROLOGICAL: Cranial nerves II through XII grossly intact. Normal speech, no focal sensorimotor deficits SKIN: Warm, Dry, normal turgor, no rashes or lesions noted. Medical Decision Making - Medical Decision Making 12/29/17 15:36 Ms. Del Rosario is a 62 yo female w/ pmh as described who presents for evaluation of left knee pain. XR sent for evaluation which showed osteoarthritic changes w/ out acute fracture. No acute process at this time. Discharging patient to home w / instructions to follow-up as needed for further evaluation with orthopedics. Discharging patient to home. *DC/Admit/Observation/Transfer Diagnosis at time of Disposition: Knee pain, left Qualifiers: Chronicity: acute Qualified Code(s): M25.562 - Pain in left knee - Discharge Dispostion Disposition: HOME - Referrals Referrals: Jose Ibarra MD [Staff Physician] - - Patient Instructions Printed Discharge Instructions: DI for Knee Pain Additional Instructions: Please return if any increase of pain, fever, chills, or other concerning symptoms. Follow-up with orthopedics as discussed for continued pain as needed. - Post Discharge Activity Forms/Work/School Notes: Back to Work
[2017-12-29 12:33] VITALS: BMI 33.2
--- NOTE | 2017-12-29 13:06 | PDOC ---
Attending Attestation - Resident Resident Name: Delvis Mg - ED Attending Attestation I have performed the following: I have examined & evaluated the patient, The case was reviewed & discussed with the resident, I agree w/resident's findings & plan, Exceptions are as noted - HPI HPI: 12/29/17 13:14 62y F hx of heroin abuse currently on methadone, thrombocytopenia, presents s/p fall ysterday - states she was standing looking out a window when she moved back and stumbled onto her electronic wheel chair. Pt fell on her L knee. denies any other injuries including head injury, neck pain, loc, back pain, or other extremity pain. On exam pt is in no distress atruamatic head exam no focal tenderness in the cervical/thoracic/lumbar spine normal rom of b/l upper extremities and RLE LLE mild diffuse tenderness to L knee, able to passively range knee approx 20 degrees bu tlimited by pain. - will ro fx wiht xray analgesia - Physicial Exam PE: 12/29/17 19:50 see above - Medical Decision Making xray noted for arhtiritic changes no acute fx pt feleing improved with pain meds will dc with pmd fu return precautions were discussed
[2017-12-29] MEDS ORDERED: ACETAMINOPHEN 325 MG TABLET (FP) PO ONE (13:35)
[2017-12-29] MEDS ORDERED: IBUPROFEN 400 MG TABLET (FP) PO ONE (13:35)
[2017-12-29] MEDS ORDERED: IBUPROFEN 600 MG TABLET (FP) PO ONE (13:57)
[2017-12-29] MEDS ORDERED: ACETAMINOPHEN 325 MG TABLET (FP) ONE (13:57)
[2017-12-29] MEDS ORDERED: ALPRAZolam 2 MG TABLET PO ONE (15:34)
[2017-12-29] MEDS ORDERED: ALPRAZolam 2 MG TABLET ONE (15:45)
[2017-12-29 15:52] VITALS: BP 122/77; PULSE 78; TEMP 98
== END 2017-12-29 15:51 | disposition home or self-care (01) ==
LOC: JER 12:21
DX: M25.562 Pain in left knee (principal); F11.20 Opioid dependence, uncomplicated; F41.9 Anxiety disorder, unspecified; E03.9 Hypothyroidism, unspecified; D69.6 Thrombocytopenia, unspecified; I10 Essential (primary) hypertension; I25.2 Old myocardial infarction; E78.00 Pure hypercholesterolemia, unspecified; Z88.0 Allergy status to penicillin; Z91.010 Allergy to peanuts; W01.0XXA Fall on same level from slipping, tripping and stumbling without subsequent striking against object, initial encounter; Y93.89 Activity, other specified; Y92.009 Unspecified place in unspecified non-institutional (private) residence as the place of occurrence of the external cause
CPT/HCPCS: 73562-TC-LT-FY; 99282-25

== ENCOUNTER 2018-05-02 21:56 | Emergency (ER) | payer OTHER ==
--- NOTE | 2018-05-02 22:07 | PDOC ---
History of Present Illness - General Stated Complaint: DIZZY/NAUSEA Time Seen by Provider: 05/02/18 22:02 History Source: Patient Exam Limitations: No Limitations - History of Present Illness Initial Comments: 05/02/18 22:24 Pt is a 62 year old female with past medical history of anxiety, chronic pain, methadone use, seizure due to xanax withdrawal, [place] who presents to ED today because she took 6 doses of Gabapentin 600 mg today (2 in the AM, 2 in the afternoon, and 2 at night). She states this is her 's medication and that she took it by accident thinking it was motrin. She complains of nausea. She denies chest pain, SOB, palpitations, headache, dizziness, lightheadedness, cough. Pt denies suicidal or homicidal ideations. Past History - Past Medical History Allergies/Adverse Reactions: Allergies Allergy/AdvReac Type Severity Reaction Status Date / Time Penicillins Allergy Severe Swelling Verified 05/02/18 22:25 peanut Allergy Unknown Verified 05/02/18 22:25 phenobarbital Allergy Verified 05/02/18 22:25 Home Medications: Ambulatory Orders Levothyroxine [Synthroid -] 125 mcg PO DAILY 01/22/17 Methadone [Dolophine -] 140 mg PO DAILY 10/07/17 Ranitidine [Zantac -] 150 mg PO DAILY 10/07/17 Alprazolam [Xanax] 2 mg PO TID 10/31/17 Epinephrine [Epipen] 0.3 mg IJ PRN PRN 12/29/17 Ibuprofen [Motrin -] 400 mg PO PRN PRN 12/29/17 Azithromycin 250 mg PO DAILY 4 Days #4 tablet 05/03/18 Anemia: No Asthma: No Cancer: No Cardiac Disorders: Yes ([place]) CVA: No COPD: No DVT: No Dementia: No Diabetes: No GI Disorders: No Disorders: No HTN: Yes Hypercholesterolemia: Yes Liver Disease: No Psychiatric Problems: Yes (anxiety disorder) Seizures: Yes Thyroid Disease: Yes (Hypothyroid) - Surgical History Lung Surgery: Yes (L. Lung) - Immunization History Immunization Up to Date: Yes - Suicide/Smoking/Psychosocial Hx Smoking History: Unknown if ever smoked Have you smoked in the past 12 months: No Number of Cigarettes Smoked Daily: 3 If you are a former smoker, when did you quit?: 03/18/15 'Breaking Loose' booklet given: 12/15/17 Hx Alcohol Use: No Drug/Substance Use Hx: No Substance Use Type: None Hx Substance Use Treatment: Yes Review of Systems - Review of Systems Comments:: 05/02/18 22:29 General: denies for fever, chills, night sweats, generalized weakness. HEENT: denies for sore throat, rhinorrhea, ear pain. Heart: denies for chest pain, palpitations, syncope, lower extremity swelling. Respiratory: negative for shortness of breath, cough, sputum production, hematemesis. Abdomen: admits to nausea. denies for abdominal pain, vomiting, diarrhea, constipation, blood in stool. : admits to urinary frequency. denies for dysuria, hematuria. Musculoskeletal: denies for joint pain, muscle pain, joint swelling. Neurological: denies for headache, dizziness, numbness, tingling, Skin: denies for rash, laceration, abrasion. *Physical Exam - Physical Exam Comments: 05/02/18 22:34 General: awake, alert and oriented X3, no apparent distress HEENT: head is normocephalic, atraumatic. EOMI. PERRLA. Neck: supple without lymphadenopathy Heart: tachycardic. regular rhythm. no murmurs, rubs or gallops. Lungs: clear to auscultation bilaterally. no crackles, rhonchi or wheezing. no stridor. Abdomen: soft, nontender. decreased bowel sounds. no rebound, guarding, masses. Extremities: Peripheral pulses intact. No leg edema. right ankle deformed, chronic ankle fracture. Neurological: Pt is tremulous. Alert. Oriented x3. CN 2-12 intact. 5/5 strength all extremities. Psych: patient is anxious, crying. 05/02/18 23:07 Procedures - Additional Procedures Progress: 05/03/18 00:17 Ultrasound guided IV attempted on left and right arm with failure of return of blood flow. The IV placed into the right arm infiltrated and an faizan wrap was placed for compression. Heart Score/ECG Review - ECG Impressions Comment:: 05/02/18 22:55 EKG performed at 22:31 - rate 92, regular rhythm, normal axis, lateral flattened T waves, no other acute ST changes noted. ED Treatment Course - LABORATORY CBC & Chemistry Diagram: 05/03/18 01:00 05/02/18 00:00 Medical Decision Making - Medical Decision Making 05/02/18 22:33 Spoke with Poison Control, who stated that the primary concern is drowsiness and that if she is not drowsy then she can tolerate the dose. 05/02/18 22:45 Discussed case with attending, Dr. Brittni Nguyen, who recommends withholding Xanax, and proceeding with a workup for the patient's fever. 05/02/18 22:50 Pt reassessed, I discussed with her Poison Control's assessment. 05/02/18 23:08 Discussed case with patient's nurse, Tom Zuñiga, who states that he is having difficulty getting IV access. Patient has a known history of IV drug abuse. 05/03/18 00:18 Ultrasound guided IV was attempted by Dr. Robbie Gabriel twice, the IV line was able to be placed and placement was verified by US, but there was no return of blood flow. Dr. Nguyen performed accessed the radial artery in the left arm and was able to draw labs. Patient has one IV in place that is functional. 05/03/18 01:08 CBC was hemolyzed, new CBC ordered. 05/03/18 01:27 Pt reassessed, states she is feeling better after given Xanax 2 mg. She states that she needs to go to her program at 6 am. 05/03/18 02:55 Chest XR read by Dr. Nguyen, who states the patient has a pneumonia. Patient will be discharged with Zithromax. *DC/Admit/Observation/Transfer Diagnosis at time of Disposition: Pneumonia - Discharge Dispostion Disposition: HOME Condition at time of disposition: Stable - Referrals - Patient Instructions Printed Discharge Instructions: DI for Pneumonia -- Adult Additional Instructions: You are being discharged from the Emergency Department. You have been diagnosed with Pneumonia. You have been prescribed Zithromax, please take all of your prescribed pills. Take Tylenol for pain. Drink lots of fluids, water or gatorade. Follow up with your primary care doctor within 7 days. Check the label before you take medication at home again. If you experience any new or worsening symptoms please return to the Emergency Department. - Post Discharge Activity Forms/Work/School Notes: Back to Work
[2018-05-02 22:33] VITALS: BMI 35.0
[2018-05-02] MEDS ORDERED: ONDANSETRON *ODT* 4 MG TABLET SL ONE (22:42)
[2018-05-02] MEDS ORDERED: SODIUM CHLORIDE 1,000 ML IV STA (22:43)
[2018-05-02] MEDS ORDERED: ACETAMINOPHEN 1000 MG/100 ML VIAL (NON FORMULARY) IVPB ONE (22:44)
[2018-05-02] MEDS ORDERED: ACETAMINOPHEN INJECTION 100 ML IVPB ONE (23:20)
[2018-05-02] MEDS ORDERED: ONDANSETRON 4 MG/2 ML VIAL ONE (23:21)
[2018-05-03] MEDS ORDERED: ALPRAZolam 2 MG TABLET PO ONE (00:11)
[2018-05-03] MEDS ORDERED: ALPRAZolam 2 MG TABLET ONE (01:13)
[2018-05-03 01:21] LABS: ANION GAP 3 (8-16); BLOOD UREA NITROGEN 8 mg/dL (7-18); CALCIUM 8.3 mg/dL (8.5-10.1); CHLORIDE 100 mmol/L (98-107); CO2 34 mmol/L (21-32); CREATININE 0.8 mg/dL (0.55-1.02); GLUCOSE,RANDOM 94 mg/dL (74-106); POTASSIUM 4.2 mmol/L (3.5-5.1); SGOT/AST 15 U/L (15-37); SGPT/ALT 15 U/L (12-78); SODIUM 137 mmol/L (136-145)
[2018-05-03 01:22] LABS: ALK PHOS 78 U/L (45-117); BILIRUBIN,TOTAL 0.2 mg/dL (0.2-1.0); TOT PROT 7.3 g/dl (6.4-8.2)
[2018-05-03 01:35] LABS: HEMATOCRIT 38.8 % (32.4-45.2); HEMOGLOBIN 12.6 GM/dL (10.7-15.3); MCH 28.6 pg (25.7-33.7); MCHC 32.4 g/dl (32.0-36.0); MEAN CELL VOLUME 88.3 fl (80-96); WHITE BLOOD COUNT 14.2 K/mm3 (4.0-10.0)
[2018-05-03 01:35] LABS: URINE APPEARANCE CLEAR; URINE BILIRUBIN NEGATIVE (<2.0 mg/dL); URINE COLOR STRAW; URINE GLUCOSE (UA) NEGATIVE (NEGATIVE); URINE KETONE NEGATIVE (NEGATIVE); URINE LEUK ESTERASE NEGATIVE (NEGATIVE); URINE NITRITE NEGATIVE (NEGATIVE); URINE PROTEIN NEGATIVE (NEGATIVE); URINE UROBILINOGEN NEGATIVE mg/dL (0.2-1.0)
[2018-05-03] MEDS ORDERED: AZITHROMYCIN 250 MG TABLET PO ONE (02:54)
[2018-05-03 02:56] VITALS: BP 106/64; PULSE 76; TEMP 98.4
--- NOTE | 2018-05-03 02:57 | PDOC ---
Attending Attestation - HPI HPI: The patient is a 62 year old female with a significant past medical history of HTN, HLD, [place], hypothyroid, anxiety, and seizures who presents to the emergency department for evaluation of overdose. Pt reports taking her 's medication by accident, assuming it was motrin. The patient reports taking 6 doses of 600mg Gabapentin (2 in the morning, 2 at noon, and 2 in the evening). She reports vomiting shortly after and feeling very dry. Pt reports associated symptoms of cough, dysuria, diarrhea, fever, and chills. She notes she urinated on herself secondary to urinary urgency. The patient denies chest pain, cough, shortness of breath, and constipation. Denies injection and sick contact. Allergies: Penicillins, peanute, phenobarbital. - Physicial Exam PE: GENERAL: (+)Febrile. (+)Anxious secondary to Xanax withdrawal. Awake, alert, and fully oriented, in no acute distress HEAD: No signs of trauma EYES: PERRLA, EOMI, sclera anicteric, conjunctiva clear ENT: Auricles normal inspection, hearing grossly normal, nares patent, oropharynx clear without exudates. Moist mucosa NECK: Normal ROM, supple. LUNGS: Breath sounds equal, clear to auscultation bilaterally. No wheezes, and no crackles HEART: Regular rate and rhythm, normal S1 and S2, no murmurs, rubs or gallops ABDOMEN: Soft, nontender, normoactive bowel sounds. No guarding, no rebound. No masses EXTREMITIES: (+)Chronic right ankle deformity. Normal range of motion, no edema. No clubbing or cyanosis. No cords, erythema, or tenderness NEUROLOGICAL: Cranial nerves II through XII grossly intact. SKIN: Warm, Dry, normal turgor, no rashes or lesions noted. <Pola Sullivan - Last Filed: 05/03/18 02:58> - Resident Resident Name: Monica Vaughn - ED Attending Attestation I have performed the following: I have examined & evaluated the patient, The case was reviewed & discussed with the resident, I agree w/resident's findings & plan - Medical Decision Making 05/03/18 02:56 Pt has a fever; she states that she has been coughing. She has a pneumonia on CXR. Pt also complains of burning on urination. She has no UTI. We will treat with zpak and she will follow with her PMD. Regarding her taking 6 pills of gabapentin 600mg each (she took 2 in the AM, 2 in the afternoon and 2 at PM), poisons says that there is nothing to worry about. <Chantel Nguyen - Last Filed: 05/04/18 04:36> Attestations - Attestations Documentation prepared by Pola Sullivan, acting as medical assistant supervisor for Chantel Nguyen MD. <Pola Sullivan - Last Filed: 05/03/18 02:58>
[2018-05-03] MEDS ORDERED: AZITHROMYCIN 250 MG TABLET ONE (03:00)
--- NOTE | 2018-05-03 10:08 | EKG ---
Test Reason : Blood Pressure : / mmHG Vent. Rate : 092 BPM Atrial Rate : 092 BPM P-R Int : 142 ms QRS Dur : 082 ms QT Int : 362 ms P-R-T Axes : 065 070 066 degrees QTc Int : 447 ms NORMAL SINUS RHYTHM NONSPECIFIC T WAVE ABNORMALITY ABNORMAL ECG WHEN COMPARED WITH ECG OF 10-JUL-2017 08:30, QT HAS LENGTHENED Confirmed by GLENNA RODRÍGUEZ, [place] ([id number]) on 05/03/2018 10:08:10 AM Referred By: Confirmed By:CA MANZANARES MD
== END 2018-05-03 03:10 | disposition home or self-care (01) ==
LOC: JER 21:56
PROC: 3E033NZ Introduction of Analgesics, Hypnotics, Sedatives into Peripheral Vein, Percutaneous Approach (ICD-10-PCS; principal; 2018-05-02)
DX: J18.9 Pneumonia, unspecified organism (principal); T42.6X1A Poisoning by other antiepileptic and sedative-hypnotic drugs, accidental (unintentional), initial encounter; R11.0 Nausea; Y92.038 Other place in apartment as the place of occurrence of the external cause; F11.20 Opioid dependence, uncomplicated; F41.9 Anxiety disorder, unspecified; E03.9 Hypothyroidism, unspecified; G40.509 Epileptic seizures related to external causes, not intractable, without status epilepticus; I25.2 Old myocardial infarction
CPT/HCPCS: 36415; 71045-TC-FY; 80053; 81003; 82550; 83605; 84484; 85027; 87040; 93005; 93010; 96374; 99284-25; J0131; J7030; Q0162

== ENCOUNTER 2018-11-17 08:25 | Emergency (ER) | payer OTHER ==
[2018-11-17 08:45] VITALS: BP 125/83; PULSE 747; TEMP 98.5; BMI 39.1
--- NOTE | 2018-11-17 08:57 | PDOC ---
History of Present Illness - General Chief Complaint: Injury Stated Complaint: FALL Time Seen by Provider: 11/17/18 08:51 History Source: Patient Exam Limitations: No Limitations - History of Present Illness Initial Comments: 11/17/18 08:55 has a weak ankle and while standing , lost balance and felll to left side. C/O pain to left knee. Occurred: reports: yesterday Severity: reports: mild, moderate Pain Location: reports: lower extremity (left knee ) Modifying Factors: improves with: None Loss of Consciousness: no loss of consciousness Associated Symptoms (Fall): denies symptoms Past History - Travel Traveled outside of the country in the last 30 days: No Close contact w/someone who was outside of country & ill: No - Past Medical History Allergies/Adverse Reactions: Allergies Allergy/AdvReac Type Severity Reaction Status Date / Time Penicillins Allergy Severe Swelling Verified 11/17/18 08:38 peanut Allergy Unknown Verified 11/17/18 08:38 phenobarbital Allergy Verified 11/17/18 08:38 Home Medications: Ambulatory Orders Levothyroxine [Synthroid -] 125 mcg PO DAILY 01/22/17 Methadone [Dolophine -] 140 mg PO DAILY 10/07/17 Ranitidine [Zantac -] 150 mg PO DAILY 10/07/17 Alprazolam [Xanax] 2 mg PO TID 10/31/17 Epinephrine [Epipen] 0.3 mg IJ PRN PRN 12/29/17 Ibuprofen [Motrin -] 400 mg PO PRN PRN 12/29/17 Azithromycin 250 mg PO DAILY 4 Days #4 tablet 05/03/18 Diclofenac Sodium 100 gm TP BID PRN #1 gel..gram. 11/17/18 Anemia: No Asthma: No Cancer: No Cardiac Disorders: Yes ([place]) CVA: No COPD: No DVT: No Dementia: No Diabetes: No GI Disorders: No Disorders: No HTN: Yes Hypercholesterolemia: Yes Liver Disease: No Psychiatric Problems: Yes (anxiety disorder) Seizures: Yes Thyroid Disease: Yes (Hypothyroid) - Surgical History Lung Surgery: Yes (L. Lung) - Immunization History Immunization Up to Date: Yes - Suicide/Smoking/Psychosocial Hx Smoking History: Current every day smoker Have you smoked in the past 12 months: No Number of Cigarettes Smoked Daily: 1 If you are a former smoker, when did you quit?: 03/18/15 Information on smoking cessation initiated: No 'Breaking Loose' booklet given: 10/10/17 Hx Alcohol Use: No Drug/Substance Use Hx: No Substance Use Type: None Hx Substance Use Treatment: Yes Trauma Specific PMHX - Complaint Specific PMHX Back Injury: No Neck Injury: No Review of Systems - Review of Systems Able to Perform ROS?: Yes Is the patient limited Liberian proficient: Yes Constitutional: Yes: See HPI. No: Symptoms Reported, Fever, Malaise HEENTM: No: Symptoms Reported Respiratory: No: Symptoms reported Musculoskeletal: Yes: Symptoms Reported, See HPI, Joint Pain, Joint Swelling, Muscle Weakness All Other Systems: Reviewed and Negative *Physical Exam - Vital Signs Last Vital Signs Temp Pulse Resp BP Pulse Ox 98.5 F 747 H 15 125/83 98 11/17/18 08:38 11/17/18 08:38 11/17/18 08:38 11/17/18 08:38 11/17/18 08:38 - Physical Exam General Appearance: Yes: Nourished, Appropriately Dressed. No: Apparent Distress HEENT: positive: SEAN, Normal ENT Inspection, Normal Voice, TMs Normal, Pharynx Normal Neck: positive: Supple. negative: Tender, Trachea midline, Normal Thyroid Respiratory/Chest: negative: Lungs Clear Musculoskeletal: positive: Normal Inspection, Decreased Range of Motion (wiht tenderness to ) Extremity: positive: Normal Capillary Refill, Normal Range of Motion (but limitied chronically ), Tender Integumentary: positive: Normal Color, Dry, Warm. negative: Swelling, Ecchymosis, Bruising Neurologic: positive: pattern ruler II-XII NML intact, Fully Oriented, Alert, Normal Mood/ Affect, Normal Response, Motor Strength 5/5 Moderate Sedation - Procedure Monitoring Vital Signs: Procedure Monitoring Vital Signs Temperature 98.5 F 11/17/18 08:38 Pulse Rate 747 H 11/17/18 08:38 Respiratory Rate 15 11/17/18 08:38 Blood Pressure 125/83 11/17/18 08:38 O2 Sat by Pulse Oximetry (%) 98 11/17/18 08:38 ED Treatment Course - RADIOLOGY Radiology Studies Ordered: Category Date Time Status KNEE 3 POS-LEFT [RAD] Stat Radiology 11/17/18 08:52 Ordered Progress Note - Progress Note Progress Note: knee strain-= will treat with difenolac cream . F/U wih Ortho *DC/Admit/Observation/Transfer Diagnosis at time of Disposition: Knee sprain Qualifiers: Encounter type: initial encounter Involved ligament of knee: other ligament Laterality: left Qualified Code(s): S83.8X2A - Sprain of other specified parts of left knee, initial encounter - Discharge Dispostion Disposition: HOME Condition at time of disposition: Stable Decision to Admit order: No - Prescriptions Prescriptions: Diclofenac Sodium 100 gm TP BID PRN #1 gel..gram. PRN Reason: Pain - Referrals Referrals: Jeyson Purcell DO [Staff Physician] - - Patient Instructions Printed Discharge Instructions: DI for Knee Sprain Additional Instructions: Rest, ice to area on and off for 15 minutes 4-6 times a day Avoid heavy lifting or exercise until pain and swelling is resolved or until further directed Keep area highly elevated to reduce swelling Use splints/Roman wrap as directed Followup with orthopedist in one to 2 days if not improving, if significantly improved may wait one week for followup with orthopedist May apply cream twice a day as needed for pain relief May use ibuprofen 2-200 mg tablets every 6 hours as needed for pain - Post Discharge Activity
== END 2018-11-17 09:45 | disposition home or self-care (01) ==
LOC: JERFT 08:25
DX: S83.8X2A Sprain of other specified parts of left knee, initial encounter (principal); W01.0XXA Fall on same level from slipping, tripping and stumbling without subsequent striking against object, initial encounter; Y93.89 Activity, other specified; Y92.89 Other specified places as the place of occurrence of the external cause; Y99.8 Other external cause status; I25.10 Atherosclerotic heart disease of native coronary artery without angina pectoris; I10 Essential (primary) hypertension; I25.2 Old myocardial infarction; E78.00 Pure hypercholesterolemia, unspecified; F41.9 Anxiety disorder, unspecified; E03.9 Hypothyroidism, unspecified; Z86.69 Personal history of other diseases of the nervous system and sense organs
CPT/HCPCS: 73562-TC-LT-FY; 99281-25

== ENCOUNTER 2019-03-30 17:35 | Emergency (ER) | payer OTHER | END 2019-03-30 23:09 | disposition home or self-care (01) | LOC: JER 17:35 ==

== ENCOUNTER → 2019-06-30 | Outpatient (CLI) | payer OTHER | LOC: YHH 15:49 ==

== ENCOUNTER 2019-09-24 20:30 | Inpatient (IN) | payer OTHER ==
[2019-09-24 21:12] VITALS: BMI 34.7
--- NOTE | 2019-09-24 21:23 | PDOC ---
History of Present Illness - General Chief Complaint: Injury Stated Complaint: FALL Time Seen by Provider: 09/24/19 21:22 - History of Present Illness Initial Comments: 09/24/19 23:27 63y/o F hx of anxiety, opioid abuse, depression, [place] , currently on daily methadone presents to the ER after a fall. Patient is not the best historian. She reports 3 seperate incidents of falling over the last 3 days. She uses an electrical chair to get around, but can ambulate around her home. She reports she began taking phenadryl 3 days ago when the incidents began. She fell from her chair to the floor on her knees and was on the floor for approximately 3-4hrs before she was found. She endorses knee pain and bruising as well as lower back pain she denies LOC, preceding dizziness or lightheadedness before fallin she denies any dizzines, nausea or vomiting or head trauma 09/24/19 23:28 Past History - Past Medical History Allergies/Adverse Reactions: Allergies Allergy/AdvReac Type Severity Reaction Status Date / Time Penicillins Allergy Severe Swelling Verified 09/24/19 21:10 peanut Allergy Unknown Verified 09/24/19 21:10 phenobarbital Allergy Verified 09/24/19 21:10 Home Medications: Ambulatory Orders Levothyroxine [Synthroid -] 125 mcg PO DAILY 01/22/17 Methadone [Dolophine -] 140 mg PO DAILY 10/07/17 Ranitidine [Zantac -] 150 mg PO DAILY 10/07/17 Alprazolam [Xanax] 2 mg PO TID 10/31/17 Epinephrine [Epipen] 0.3 mg IJ PRN PRN 12/29/17 Ibuprofen [Motrin -] 400 mg PO PRN PRN 12/29/17 Diclofenac Sodium 100 gm TP BID PRN #1 gel..gram. 11/17/18 Anemia: No Asthma: No Cancer: No Cardiac Disorders: Yes ([place]) CVA: No COPD: No DVT: No Dementia: No Diabetes: No GI Disorders: No Disorders: No HTN: Yes Hypercholesterolemia: Yes Liver Disease: No Psychiatric Problems: Yes (anxiety disorder) Seizures: Yes Thyroid Disease: Yes (Hypothyroid) - Surgical History Lung Surgery: Yes (L. Lung) - Immunization History Immunization Up to Date: Yes - Psycho Social/Smoking Cessation Hx Smoking History: Never smoked Have you smoked in the past 12 months: No Number of Cigarettes Smoked Daily: 2 If you are a former smoker, when did you quit?: 03/18/15 Information on smoking cessation initiated: No 'Breaking Loose' booklet given: 10/10/17 Hx Alcohol Use: No Drug/Substance Use Hx: No Substance Use Type: None Hx Substance Use Treatment: Yes *Physical Exam - Vital Signs Last Vital Signs Temp Pulse Resp BP Pulse Ox 98.9 F 102 H 30 H 110/76 90 L 09/24/19 20:45 09/24/19 20:45 09/24/19 20:45 09/24/19 20:45 09/24/19 20:45 - Physical Exam 09/24/19 23:36 GENERAL: Awake, alert, and fully oriented, anxious and easily excitable HEAD: No signs of trauma, normocephalic, atraumatic EYES: PERRLA, EOMI, sclera anicteric, conjunctiva clear ENT: Auricles normal inspection, hearing grossly normal, nares patent, oropharynx clear without exudates. Moist mucosa NECK: Normal ROM, supple, no lymphadenopathy, JVD, or masses LUNGS: No distress, speaks full sentences, clear to auscultation bilaterally HEART: Regular rate and rhythm, normal S1 and S2, no murmurs, rubs or gallops, peripheral pulses normal and equal bilaterally. ABDOMEN: Soft, nontender, normoactive bowel sounds. No guarding, no rebound. No masses EXTREMITIES :Ecchymosis and tenderness of left knee. tenderness of right knee. able to move lower extremities with diminshed strength in lower extremities. sensation intact. tenderness of lumbar spine and paraspinal tenderness. right ankle externally rotated (chronic deformity) NEUROLOGICAL: Cranial nerves II through XII grossly intact. Normal speech, no focal sensorimotor deficits SKIN: Warm, Dry, normal turgor, ecchymosis left knee. bruising and erythema of below right knee. 09/24/19 23:41 ED Treatment Course - LABORATORY CBC & Chemistry Diagram: 09/24/19 23:04 09/24/19 23:04 Medical Decision Making - Medical Decision Making 09/24/19 23:39 63y/o F hx of anxiety, opioid abuse, depression, [place] , currently on daily methadone presents to the ER after a fall. Patient currently anxious. has taken her daily dose of methadone takes xanax at home 20mg po tid cbc, cmp, cpk x-rays of hip, pelvis, lumbar spine Meds: alprazolam 20mg po. offirmev 1000mg IV 09/24/19 23:42 Labs pending 09/25/19 00:[address] Godoy Discharge - Discharge Information Problems reviewed: Yes Clinical Impression/Diagnosis: Fall Qualifiers: Encounter type: initial encounter Qualified Code(s): W19.XXXA - Unspecified fall, initial encounter - Follow up/Referral - Patient Discharge Instructions - Post Discharge Activity
[2019-09-24] MEDS ORDERED: ACETAMINOPHEN 1000 MG/100 ML VIAL (NON FORMULARY) IVPB ONE (22:07)
[2019-09-24] MEDS ORDERED: ALPRAZolam 2 MG TABLET PO ONE (22:07)
[2019-09-24] MEDS ORDERED: ALPRAZolam 1 MG TABLET ONE (22:13)
[2019-09-24] MEDS ORDERED: ACETAMINOPHEN INJECTION 100 ML IVPB ONE (23:27)
[2019-09-24 23:28] LABS: HEMATOCRIT 38.3 % (32.4-45.2); HEMOGLOBIN 12.5 GM/dL (10.7-15.3); MCH 28.2 pg (25.7-33.7); MCHC 32.7 g/dl (32.0-36.0); MEAN CELL VOLUME 86.4 fl (80-96); MEAN PLT VOLUME 10.5 fl (7.5-11.1); PLATELET COUNT 78 K/MM3 (134-434); RBC 4.44 M/mm3 (3.60-5.2); WHITE BLOOD COUNT 13.8 K/mm3 (4.0-10.0)
--- NOTE | 2019-09-25 00:06 | PDOC ---
Documentation entered by Bob Patel SCRIBE, acting as scribe for Renee Baumann MD. Renee Baumann MD: This documentation has been prepared by the Jorge lepe Daniel, SCRIBE, under my direction and personally reviewed by me in its entirety. I confirm that the documentation accurately reflects all work, treatment, procedures, and medical decision making performed by me. Attending Attestation - Resident Resident Name: GegeAna LuisamarkKendysteven - ED Attending Attestation I have performed the following: I have examined & evaluated the patient, The case was reviewed & discussed with the resident, I agree w/resident's findings & plan, Exceptions are as noted - HPI HPI: 09/25/19 00:04 63 YO f WITH h/o chronic right foot deformity, uses wheelchair. but can walk short distances. here today after fall from wheelchair. while trying to transfser from bed to chair. states she fell to her knees. happenedd earlier today. states she was on the floor for several hours, was brought to hospital by EMS. takes methadone 40 mg daily, xanax. hit her knee on the dresser. also c/o low back pain 09/25/19 01:58 - Physicial Exam PE: 09/25/19 01:56 awake alert lungs clear bilat heart rrr no mrg abd soft nt nd ext chronic ankle deformity. right knee laceratoin surrounding redness. no crepitus. left knee with eccymosis. pain on rom. skin otherwise warm and dry. nuero alrt oriented x 3. - Medical Decision Making 09/25/19 00:06 plan xray knees ro fx, lumbosacra lspine, given pm dose of xanax, [facility] if xray negative. 09/25/19 01:57 pt states after she fell out of bed getting to wheel chair she was on the floor for 4 hours. had bilat knee eccyosis, laceration on right kne surrounding redness. concerns for infection. pt also noted to be in rhabdomyolysis with ck of 4000+ roxann hydrate with normal saline. will require admission. will give abx for right knee laceration , surrounding erythema. tetanus given. pt denies hitting her head. Heart Score/ECG Review #1 General ECG Interpretation: Sinus Rhythm, Normal Rate, Normal Intervals, No acute ischemic changes Compared to previous ECG there are: Other (TWI I, AVL.)
[2019-09-25 00:51] LABS: ALBUMIN 3.4 g/dl (3.4-5.0); BILIRUBIN,TOTAL 0.5 mg/dL (0.2-1); BLOOD UREA NITROGEN 14.8 mg/dL (7-18); CALCIUM 8.9 mg/dL (8.5-10.1); CREATININE 1.1 mg/dL (0.55-1.3); POTASSIUM 4.7 mmol/L (3.5-5.1); TOT PROT 8.4 g/dl (6.4-8.2)
[2019-09-25] MEDS ORDERED: SODIUM CHLORIDE 0.9% 1000 ML INFUS.BAG IV ONE (01:52)
[2019-09-25] MEDS ORDERED: CLINDAMYCIN 600MG PREMIX IVPB 600 MG/50 ML BAG IVPB ONE ×2 (02:04→02:14)
[2019-09-25] MEDS ORDERED: DIPHTH,PERTUSS(ACELL),TET 0.5 ML DISP.SYRIN IM ONE ×2 (02:13→04:54)
[2019-09-25 05:57] LABS: URINE APPEARANCE CLEAR; URINE BILIRUBIN NEGATIVE (NEGATIVE); URINE COLOR YELLOW; URINE GLUCOSE (UA) NEGATIVE (NEGATIVE); URINE KETONE NEGATIVE (NEGATIVE); URINE LEUK ESTERASE NEGATIVE (NEGATIVE); URINE NITRITE NEGATIVE (NEGATIVE); URINE PROTEIN NEGATIVE (NEGATIVE); URINE UROBILINOGEN 0.2 mg/dL (0.2-1.0)
[2019-09-25] MEDS ORDERED: ALPRAZolam 1 MG TABLET PO PRN (06:07)
[2019-09-25] MEDS ORDERED: ALPRAZolam 1 MG TABLET ONE ×3 (06:10→22:24)
[2019-09-25] MEDS: SODIUM CHLORIDE 1,000 ML IV SCH (07:22)
--- NOTE | 2019-09-25 08:58 | HP ---
CHIEF COMPLAINT: PCP: HISTORY OF PRESENT ILLNESS: 63 YO f WITH h/o chronic right foot deformity, uses wheelchair. but can walk short distances. here today after fall from wheelchair. while trying to transfser from bed to chair. states she fell to her knees. happenedd earlier today. states she was on the floor for several hours, was brought to hospital by EMS. takes methadone 140 mg daily, xanax. hit her knee on the dresser. also c/o low back pain She is taking multiple medication for anxiety pain and she [facility]. She lives with her and now she is complaining of pain in her left knee also there is a bruise on the top of that but she said this is not due to her recent fall. I looked her right bruise on the leg it looks like it is few days old but she said she fell yesterday. ER course was notable for: (1) history of multiple falls with multiple bruises (2) history of methadone program and chronic Xanax and methadone use (3) lives in [facility] Recent Travel: Denies any recent travel PAST MEDICAL HISTORY: History of chronic foot deformity and chronic pains and history of heroin use in the past. PAST SURGICAL HISTORY: He does not remember Social History: Smoking: No smoking no alcohol but history of drug use in the past according to what it was 30 years ago and she is on methadone program for last 10 years. Alcohol: Drugs: Allergies Penicillins Allergy (Severe, Verified 09/24/19 21:10) Swelling peanut Allergy (Unknown, Verified 09/24/19 21:10) phenobarbital Allergy (Verified 09/24/19 21:10) HOME MEDICATIONS: Home Medications Medication Instructions Recorded Levothyroxine [Synthroid -] 125 mcg PO DAILY 01/22/17 Methadone [Dolophine -] 140 mg PO DAILY 10/07/17 Ranitidine [Zantac -] 150 mg PO DAILY 10/07/17 Alprazolam [Xanax] 2 mg PO TID 10/31/17 Epinephrine [Epipen] 0.3 mg IJ PRN PRN 12/29/17 Ibuprofen [Motrin -] 400 mg PO PRN PRN 12/29/17 Diclofenac Sodium 100 gm TP BID PRN #1 gel..gram. 11/17/18 REVIEW OF SYSTEMS CONSTITUTIONAL: Absent: fever, chills, diaphoresis, generalized weakness, malaise, loss of appetite, weight change HEENT: Absent: rhinorrhea, nasal congestion, throat pain, throat swelling, difficulty swallowing, mouth swelling, ear pain, eye pain, visual changes CARDIOVASCULAR: Absent: chest pain, syncope, palpitations, irregular heart rate, lightheadedness , peripheral edema RESPIRATORY: Absent: cough, shortness of breath, dyspnea with exertion, orthopnea, wheezing, stridor, hemoptysis GASTROINTESTINAL: Absent: abdominal pain, abdominal distension, nausea, vomiting, diarrhea, constipation, melena, hematochezia GENITOURINARY: Absent: dysuria, frequency, urgency, hesitancy, hematuria, flank pain, genital pain MUSCULOSKELETAL: Planes of pain in the right knee and the left knee SKIN: Absent: rash, itching, pallor HEMATOLOGIC/IMMUNOLOGIC: Absent: easy bleeding, easy bruising, lymphadenopathy, frequent infections ENDOCRINE: Absent: unexplained weight gain, unexplained weight loss, heat intolerance, cold intolerance NEUROLOGIC: Absent: headache, focal weakness or paresthesias, dizziness, unsteady gait, seizure, mental status changes, bladder or bowel incontinence PSYCHIATRIC: Absent: anxiety, depression, suicidal or homicidal ideation, hallucinations. PHYSICAL EXAMINATION Vital Signs - 24 hr 09/24/19 09/25/19 09/25/19 20:45 01:00 07:09 Temperature 98.9 F 98.0 F Pulse Rate 102 H Pulse Rate [ 89 72 Left Radial] Respiratory 30 H 22 H 18 Rate Blood Pressure 110/76 Blood Pressure 122/80 120/92 [Left Arm] O2 Sat by Pulse 90 L 94 L 95 Oximetry (%) GENERAL: Awake, alert, and fully oriented, in no acute distress. HEAD: Normal with no signs of trauma. EYES: Pupils equal, round and reactive to light, extraocular movements intact, sclera anicteric, conjunctiva clear. No lid lag. EARS, NOSE, THROAT: Ears normal, nares patent, oropharynx clear without exudates. Moist mucous membranes. NECK: Normal range of motion, supple without lymphadenopathy, JVD, or masses. LUNGS: Breath sounds equal, clear to auscultation bilaterally. No wheezes, and no crackles. No accessory muscle use. HEART: Regular rate and rhythm, normal S1 and S2 without murmur, rub or gallop. ABDOMEN: Soft, nontender, not distended, normoactive bowel sounds, no guarding, no rebound, no masses. No hepatomegaly or splenomegaly. MUSCULOSKELETAL: She is tender on her both extremities at the knee level anti- levels. UPPER EXTREMITIES: 2+ pulses, warm, well-perfused. No cyanosis. No clubbing. No peripheral edema. LOWER EXTREMITIES: 2+ pulses, warm, well-perfused. No calf tenderness. No peripheral edema. NEUROLOGICAL: Cranial nerves II-XII intact. Normal speech. Normal gait. PSYCHIATRIC: Cooperative. Good eye contact. Appropriate mood and affect. SKIN: Warm, dry, normal turgor, no rashes or lesions noted, normal capillary refill. Laboratory Results - last 24 hr 09/24/19 09/24/19 09/25/19 23:04 23:04 05:40 WBC 13.8 H RBC 4.44 Hgb 12.5 Hct 38.3 MCV 86.4 MCH 28.2 MCHC 32.7 RDW 16.0 H Plt Count 78 L D MPV 10.5 D Sodium 139 Potassium 4.7 Chloride 102 Carbon Dioxide 29 Anion Gap 8 BUN 14.8 Creatinine 1.1 Est GFR (CKD-EPI)AfAm 62.31 Est GFR (CKD-EPI)NonAf 53.76 Random Glucose 65 L Calcium 8.9 Total Bilirubin 0.5 AST 100 H ALT 16 Alkaline Phosphatase 109 Creatine Kinase 4749 H Creatine Kinase Index 0.5 CK-MB (CK-2) 25.3 H Total Protein 8.4 H Albumin 3.4 Urine Color Yellow Urine Appearance Clear Urine pH 5.0 Ur Specific [place] 1.014 Urine Protein Negative Urine Glucose (UA) Negative Urine Ketones Negative Urine Blood Negative Urine Nitrite Negative Urine Bilirubin Negative Urine Urobilinogen 0.2 Ur Leukocyte Esterase Negative ASSESSMENT/PLAN: 63 YO f WITH h/o chronic right foot deformity, uses wheelchair will admit her to the hospital for pain management also physical therapy. All her x-rays which were done in the ER includes x-ray of the both knees and x- ray of the hip and pelvis both sides there is no sign of fracture but she has some sign of degenerations. She also have a high white cell count 13.0 but there is no sign of infection in the ER she has received a course of a dose of clindamycin because she has multiple allergies. Also have a high CPK level which is about 5000 even though her urine has negative hemoglobinuria but will treat her for rhabdomyolysis mild Plan Activity as tolerated Repeat CPK level Start IV fluids for rhabdomyolysis. D5 half-normal saline at 100 cc an hour For anxiety continue home medication Xanax 2 mg 3 times a day Chronic methadone use spoke to the [facility] and she take 140 mg of methadone daily confirmed by me and also by nurse so we will continue that methadone. Start her pain medication Percocet 1 pill every 6 as needed pain. Requested physical therapy. Will start her on DVT prophylaxis Lovenox 30 mg s/q daily. Visit type - Emergency Visit Emergency Visit: Yes ED Registration Date: 09/25/19 Care time: The patient presented to the Emergency Department on the above date and was hospitalized for further evaluation of their emergent condition. - New Patient This patient is new to me today: Yes Date on this admission: 09/25/19 - Critical Care Critical Care patient: No
[2019-09-25] MEDS ORDERED: METHADONE HCL 10 MG TABLET ONE (09:01)
[2019-09-25] MEDS ORDERED: METHADONE HCL 40 MG DISPERSABLE TABLET ONE (09:02)
[2019-09-25] MEDS: METHADONE 120 MG, METHADONE 20 MG PO SCH (09:13)
[2019-09-25] MEDS: DEXTROSE 5%-0.45% SALINE 1,000 ML IV SCH (09:13)
[2019-09-25] MEDS ORDERED: METHADONE HCL 10 MG TABLET PO SCH (10:00)
[2019-09-25] MEDS ORDERED: FAMOTIDINE 10 MG TABLET ONE (11:29)
[2019-09-25] MEDS: FAMOTIDINE 10 MG TABLET PO SCH (11:33)
[2019-09-25] MEDS: ALPRAZolam 2 MG TABLET PO SCH ×2 (14:49→22:26)
[2019-09-26] MEDS ORDERED: ACETAMINOPHEN 325 MG TABLET (FP) PO PRN (00:23)
[2019-09-26] MEDS ORDERED: oxyCODONE HCL 5 MG TABLET PO ONE (00:23)
--- NOTE | 2019-09-26 05:07 | HOSP ---
Subjective - Review of Symptoms Events since last encounter: 63 year old female with h/o chronic right foot deformity, uses wheelchair, came to ER post fall from wheelchair while trying to transfer from bed to chair. Patient states she was on the floor for several hours, was brought to hospital by EMS. She is taking multiple medication for anxiety & pain. Patient agitated and wants to leave AMA states she been here for 3 night and is tired and wants to go home. Discussed with patient it would be unsafe and to wait until morning to discuss with PMD before going home. Patient also noted with retaining urine, bladder US shows 600cc will straight cath and sent urine for culture ? confusion vs anxiety. General: No: Chills, Night Sweats, Fatigue, Malaise, Appetite, Other HEENT: No: Head Aches, Visual Changes, Eye Pain, Ear Pain, Dysphasia, Sinus Congestion, Post Nasal Drip, Sore Throat, Other Pulmonary: No: Dyspnea, Cough, Pleuritic Chest Pain, Other Cardiovascular: No: Chest Pain, Palpitations, Orthopnea, Paroxysmal Noc. Dyspnea , Edema, Light Headedness, Other Gastrointestinal: No: Nausea, NOSYM, Vomiting, Abdominal Pain, Diarrhea, Constipation, Melena, Hematochezia, Other Genitourinary: Yes: Retention Musculoskeletal: Yes: Extremity Pain (b/l knee pain ) Physical Examination Vital Signs: Vital Signs Temperature 97.5 F L 09/25/19 23:45 Pulse Rate 81 09/25/19 23:45 Respiratory Rate 20 09/25/19 23:45 Blood Pressure 123/80 09/25/19 23:45 O2 Sat by Pulse Oximetry (%) 95 09/25/19 20:23 Constitutional: Yes: Anxious, Mild Distress Eyes: Yes: Conjunctiva Clear, EOM Intact HENT: Yes: Atraumatic, Normocephalic Neck: Yes: Supple, Trachea Midline Cardiovascular: Yes: Regular Rate and Rhythm Respiratory: Yes: Regular, CTA Bilaterally Gastrointestinal: Yes: Normal Bowel Sounds, Soft Renal/: Yes: Bladder Distention Musculoskeletal: Yes: Joint Stiffness, Muscle Weakness Neurological: Yes: Alert, Oriented, Confusion Labs: CBC, BMP 09/24/19 23:04 09/24/19 23:04 Hospitalist Encounter Assessment: b/l knee pain urinary retention - pain management - address anxiety - straight cath x1 - collect urine and culture - monitor for safety/fall precaution
[2019-09-26] MEDS ORDERED: METHADONE 120 MG, METHADONE 20 MG PO SCH (06:00)
[2019-09-26] MEDS ORDERED: METHADONE HCL 10 MG TABLET ONE (06:04)
[2019-09-26] MEDS ORDERED: METHADONE HCL 40 MG DISPERSABLE TABLET ONE (06:04)
[2019-09-26] MEDS: METHADONE 120 MG, METHADONE 20 MG PO SCH (06:12)
[2019-09-26] MEDS ORDERED: ALPRAZolam 1 MG TABLET PO SCH ×2 (06:30)
[2019-09-26] MEDS ORDERED: LEVOTHYROXINE NA 125 MCG TABLET (FP) PO SCH (07:00)
[2019-09-26] MEDS: SODIUM CHLORIDE 1,000 ML IV SCH (07:52)
[2019-09-26] MEDS ORDERED: LACTATED RINGERS SOLUTION 1,000 ML/1,000 ML INFUS.BAG IV SCH (09:00)
[2019-09-26] MEDS: FAMOTIDINE 10 MG TABLET PO SCH ×2 (10:24→10:32)
[2019-09-26] MEDS: ENOXAPARIN NA (PORCINE) 40 MG/0.4 ML DISP.SYRIN SQ SCH ×2 (10:26→10:31)
[2019-09-26] MEDS: DEXTROSE 5%-0.45% SALINE 1,000 ML IV SCH (10:32)
--- NOTE | 2019-09-26 10:55 | PN ---
Physical Exam: SUBJECTIVE: Patient seen and examined OBJECTIVE: Vital Signs Period Temp Pulse Resp BP Sys/Rocha Pulse Ox Last 24 Hr 97.5 F-99.1 F 72-86 18-20 123-155/70-116 95-98 GENERAL: The patient is awake, alert, and fully oriented, in no acute distress. HEAD: Normal with no signs of trauma. EYES: PERRL, extraocular movements intact, sclera anicteric, conjunctiva clear. No ptosis. ENT: Ears normal, nares patent, oropharynx clear without exudates, moist mucous membranes. NECK: Trachea midline, full range of motion, supple. LUNGS: Breath sounds equal, clear to auscultation bilaterally, no wheezes, no crackles, no accessory muscle use. HEART: Regular rate and rhythm, S1, S2 without murmur, rub or gallop. ABDOMEN: Soft, nontender, nondistended, normoactive bowel sounds, no guarding, no rebound, no hepatosplenomegaly, no masses. EXTREMITIES: 2+ pulses, warm, well-perfused, no edema. NEUROLOGICAL: Cranial nerves II through XII grossly intact. Normal speech, gait not observed. PSYCH: Normal mood, normal affect. SKIN: Warm, dry, normal turgor, no rashes or lesions noted Laboratory Results - last 24 hr 09/26/19 06:05 WBC Cancelled Corrected WBC (auto) Cancelled RBC Cancelled Hgb Cancelled Hct Cancelled MCV Cancelled MCH Cancelled MCHC Cancelled RDW Cancelled Plt Count Cancelled MPV Cancelled Absolute Neuts (auto) Cancelled Neutrophils % Cancelled Lymphocytes % Cancelled Monocytes % Cancelled Eosinophils % Cancelled Basophils % Cancelled Nucleated RBC % Cancelled Platelet Estimate Cancelled Platelet Comment Cancelled Active Medications Generic Name Dose Route Start Last Admin Trade Name Freq PRN Reason Stop Dose Admin Acetaminophen 650 mg 09/26/19 00:23 09/26/19 01:00 Tylenol - PO 650 mg Q6H PRN Administration PAIN LEVEL 1-5 Alprazolam 2 mg 09/26/19 06:30 09/26/19 07:00 Xanax PO 2 mg TID YAN Administration Enoxaparin Sodium 40 mg 09/26/19 10:00 09/26/19 10:31 Lovenox - SQ Not Given DAILY [facility] Famotidine 20 mg 09/25/19 10:00 09/26/19 10:32 Acid Cleaning Maid PO Not Given DAILY YAN Lactated Ringer's 1,000 ml in 1,000 mls @ 75 mls/hr 09/26/19 09:00 09/26/19 10:10 Lactated Ringers Solution IV 75 mls/hr ASDIR YAN Administration Levothyroxine Sodium 125 mcg 09/26/19 07:00 09/26/19 06:16 Synthroid - PO 125 mcg AM YAN Administration Methadone HCl 120 mg/ 140 mg 09/25/19 09:00 09/26/19 06:12 Methadone HCl 20 mg PO 140 mg DAILY@0600 YAN Administration ASSESSMENT/PLAN:
[2019-09-26] MEDS: LORazepam 2 MG/ML SDV VIAL IM ONE ×2 (11:40→12:31)
--- NOTE | 2019-09-26 12:34 | DS ---
Physical Exam: SUBJECTIVE: Patient seen and examined OBJECTIVE: Vital Signs Period Temp Pulse Resp BP Sys/Rocha Pulse Ox Last 24 Hr 97.5 F-99.1 F 72-86 18-20 123-155/74-116 95-98 PHYSICAL EXAM GENERAL: The patient is awake, alert, and fully oriented, in no acute distress. HEAD: Normal with no signs of trauma. EYES: PERRL, extraocular movements intact, sclera anicteric, conjunctiva clear. ENT: Ears normal, nares patent, oropharynx clear without exudates, moist mucous membranes. NECK: Trachea midline, full range of motion, supple. LUNGS: Breath sounds equal, clear to auscultation bilaterally, no wheezes, no crackles, no accessory muscle use. HEART: Regular rate and rhythm, S1, S2 without murmur, rub or gallop. ABDOMEN: Soft, nontender, nondistended, normoactive bowel sounds, no guarding, no rebound, no hepatosplenomegaly, no masses. EXTREMITIES: 2+ pulses, warm, well-perfused, no edema. NEUROLOGICAL: Cranial nerves II through XII grossly intact. Normal speech, gait not observed. PSYCH: Normal mood, normal affect. SKIN: Warm, dry, normal turgor, no rashes or lesions noted. LABS Laboratory Results - last 24 hr 09/26/19 06:05 WBC Cancelled Corrected WBC (auto) Cancelled RBC Cancelled Hgb Cancelled Hct Cancelled MCV Cancelled MCH Cancelled MCHC Cancelled RDW Cancelled Plt Count Cancelled MPV Cancelled Absolute Neuts (auto) Cancelled Neutrophils % Cancelled Lymphocytes % Cancelled Monocytes % Cancelled Eosinophils % Cancelled Basophils % Cancelled Nucleated RBC % Cancelled Platelet Estimate Cancelled Platelet Comment Cancelled HOSPITAL COURSE: Date of Admission:09/25/19 Date of Discharge: 09/26/19 Discharge Summary Problems reviewed: Yes Reason For Visit: RHABDOMYOLYSIS Current Active Problems Fall (Acute) - Instructions - Home Medications Comprehensive Discharge Medication List: Ambulatory Orders Levothyroxine [Synthroid -] 125 mcg PO DAILY 01/22/17 Methadone [Dolophine -] 140 mg PO DAILY 10/07/17 Ranitidine [Zantac -] 150 mg PO DAILY 10/07/17 Alprazolam [Xanax] 2 mg PO TID 10/31/17 Epinephrine [Epipen] 0.3 mg IJ PRN PRN 12/29/17 Ibuprofen [Motrin -] 400 mg PO PRN PRN 12/29/17 Diclofenac Sodium 100 gm TP BID PRN #1 gel..gram. 11/17/18
[2019-09-26 14:33] VITALS: BP 146/76; PULSE 94; TEMP 98.4
--- NOTE | 2019-09-27 11:33 | EKG ---
Test Reason : Blood Pressure : / mmHG Vent. Rate : 080 BPM Atrial Rate : 080 BPM P-R Int : 146 ms QRS Dur : 088 ms QT Int : 414 ms P-R-T Axes : 068 072 114 degrees QTc Int : 477 ms NORMAL SINUS RHYTHM NONSPECIFIC T WAVE ABNORMALITY PROLONGED QT ABNORMAL ECG WHEN COMPARED WITH ECG OF 02-MAY-2018 22:31, T WAVE VARIATION Confirmed by YANICK SIDDIQUI MD ([id number]) on 09/27/2019 11:32:50 AM Referred By: Confirmed By:YANICK SIDDIQUI MD
== END 2019-09-26 12:25 | disposition left against medical advice (07) | DRG 351 ==
LOC: JER 20:30 → JERBED 09-25 07:02 → J7W 09-25 23:22
PROVIDERS: ADMIT Internal Medicine; ATTEND Internal Medicine
DX: M62.82 Rhabdomyolysis (principal); R33.9 Retention of urine, unspecified; M25.562 Pain in left knee; M25.561 Pain in right knee; F41.9 Anxiety disorder, unspecified; F11.20 Opioid dependence, uncomplicated
CPT/HCPCS: 36415; 72100-TC-FY; 72170-TC-FY; 73523-TC-FY; 73562-TC-LT-FY; 73562-TC-RT-FY; 80053; 81003; 82550; 82553; 85027; 87086; 90715; 93005; 93010; 99285-25; J0131; J7030

== ENCOUNTER 2019-09-27 07:42 | Emergency (ER) | payer OTHER ==
[2019-09-27 08:09] VITALS: BP 115/84; PULSE 88; TEMP 98; BMI 34.7
--- NOTE | 2019-09-27 08:44 | PDOC ---
History of Present Illness - General Chief Complaint: Pain, Acute Stated Complaint: KNEE PAIN Time Seen by Provider: 09/27/19 08:00 History Source: Patient Exam Limitations: No Limitations - History of Present Illness Initial Comments: 09/27/19 08:39 Jocelin Del Rosairo is a 63F with PMH chronic R ankle deformity with poor ambulation , recent admission for fall and rhabdomyelitis during which she left AMA, bipolar depression, opioid use disorder on 140mg daily methadone, anxiety on 2mg Xanax presenting to hospital to voice her complaints about her recent admission. Recently admitted after a fall 3 days ago. XR shows no evidence of fracture, but had CPK 5000 and admitted for rhabdo after being on the floor for 4 hours. Inpatient admission for 3 days but left AMA due to feeling tired, concerns about her care when her was bringing her home medications. After discharge home yesterday, denies any new falls, changes to mental status, or new injuries. Called 911 to voice concerns about her recent hospitalization, and EMS brought her back to ED. At this time, says that her leg still hurts, but denies worsening of pain or any new injuries. Past History - Past Medical History Allergies/Adverse Reactions: Allergies Allergy/AdvReac Type Severity Reaction Status Date / Time Penicillins Allergy Severe Swelling Verified 09/27/19 08:09 peanut Allergy Unknown Verified 09/27/19 08:09 phenobarbital Allergy Verified 09/27/19 08:09 Home Medications: Ambulatory Orders Levothyroxine [Synthroid -] 125 mcg PO DAILY 01/22/17 Methadone [Dolophine -] 140 mg PO DAILY 10/07/17 Ranitidine [Zantac -] 150 mg PO DAILY 10/07/17 Alprazolam [Xanax] 2 mg PO TID 10/31/17 Epinephrine [Epipen] 0.3 mg IJ PRN PRN 12/29/17 Ibuprofen [Motrin -] 400 mg PO PRN PRN 12/29/17 Diclofenac Sodium 100 gm TP BID PRN #1 gel..gram. 11/17/18 Anemia: No Asthma: No Cancer: No Cardiac Disorders: Yes ([place]) CVA: No COPD: No DVT: No Dementia: No Diabetes: No GI Disorders: No Disorders: No HTN: Yes Hypercholesterolemia: Yes Liver Disease: No Psychiatric Problems: Yes (anxiety disorder) Seizures: Yes Thyroid Disease: Yes (Hypothyroid) - Surgical History Abdominal Surgery: No Appendectomy: No Cardiac Surgery: No Cholecystectomy: No Lung Surgery: Yes (L. Lung) Neurologic Surgery: No Orthopedic Surgery: No - Immunization History Immunization Up to Date: Yes - Psycho Social/Smoking Cessation Hx Smoking History: Never smoked Have you smoked in the past 12 months: No Number of Cigarettes Smoked Daily: 2 If you are a former smoker, when did you quit?: 03/18/15 Information on smoking cessation initiated: No 'Breaking Loose' booklet given: 10/10/17 Hx Alcohol Use: No Drug/Substance Use Hx: No Substance Use Type: None Hx Substance Use Treatment: Yes Review of Systems - Review of Systems Able to Perform ROS?: Yes Constitutional: No: Symptoms Reported HEENTM: No: Symptoms Reported Respiratory: No: Symptoms reported Cardiac (ROS): No: Symptoms Reported ABD/GI: No: Symptoms Reported : No: Symptoms Reported Musculoskeletal: Yes: Joint Pain (movement of L knee), Joint Swelling, Muscle Pain, Joint Stiffness (L knee) Integumentary: Yes: Bruising (L knee), Lesions (ulcer to R pretibial region) Neurological: No: Symptoms reported Endocrine: No: Symptoms Reported Hematologic/Lymphatic: No: Symptoms Reported All Other Systems: Reviewed and Negative *Physical Exam - Vital Signs Last Vital Signs Temp Pulse Resp BP Pulse Ox 98 F 88 18 115/84 92 L 09/27/19 07:54 09/27/19 07:54 09/27/19 07:54 09/27/19 07:54 09/27/19 07:54 - Physical Exam General Appearance: Yes: Nourished, Appropriately Dressed, Mild Distress, Other (agitated-appearing female sitting in bed with legs extended) HEENT: positive: EOMI, SEAN, Pharynx Normal, Hearing Grossly Normal. negative: Scleral Icterus (R), Scleral Icterus (L), Pharyngeal Erythema, Tonsillar Exudate , Tonsillar Erythema Neck: positive: Supple. negative: Tender, Rigid, Lymphadenopathy (R), Lymphadenopathy (L) Respiratory/Chest: positive: Lungs Clear, Normal Breath Sounds. negative: Chest Tender, Respiratory Distress, Accessory Muscle Use, Decreased Breath Sounds, Crackles, Rales, Rhonchi, Stridor, Wheezing Cardiovascular: positive: Regular Rhythm, Regular Rate. negative: Murmur Vascular Pulses: Dorsalis-Pedis (R): 2+, Doralis-Pedis (L): 2+ Gastrointestinal/Abdominal: positive: Normal Bowel Sounds, Flat, Soft. negative : Tender, Pulsatile Mass, Guarding, Rebound, Hernia Musculoskeletal: positive: Normal Inspection. negative: CVA Tenderness, Decreased Range of Motion Extremity: positive: Normal Capillary Refill, Tender (pain on extension/flexion of L knee, nontender to palpation, no bony deformities), Swelling, Erythema. negative: Normal Inspection (ecchymosis to L knee, healing ulceration to R tran , scattered erythmatous mascules to thighs), Normal Range of Motion (L knee limited to motion from 0 to 30 degrees flexion, all other joints full ROM), Cyanosis, Pedal Edema, Calf Tenderness Integumentary: positive: Normal Color, Dry, Warm, Swelling, Ecchymosis, Bruising. negative: Jaundice, Mottled, Petechiae, Rash Neurologic: positive: physical plant manager II-XII NML intact, Fully Oriented, Alert, Normal Mood/ Affect, Normal Response, Motor Strength 5/5 Medical Decision Making - Medical Decision Making 09/27/19 08:39 Jocelin Del Rosario is a 63F with PMH chronic R ankle deformity with poor ambulation , recent admission for fall and rhabdomyelitis during which she left AMA, bipolar depression, opioid use disorder on 140mg daily methadone, anxiety on 2mg Xanax presenting to hospital to voice her complaints about her recent admission. No new or concerning findings today, BLE examined with good pulses and cap refill, no obvious new deformities. Chief complaint today is that patient would like to talk to administration, no concerning medical issues at this time. Stable to be discharged home with ortho f/u for her leg pain. Discharge - Discharge Information Problems reviewed: Yes Clinical Impression/Diagnosis: Chronic pain Qualifiers: Chronic pain type: due to trauma Qualified Code(s): G89.21 - Chronic pain due to trauma Contusion, knee Qualifiers: Encounter type: subsequent encounter Laterality: left Qualified Code(s): S80.02XD - Contusion of left knee, subsequent encounter Disposition: HOME - Admission No - Follow up/Referral Referrals: Percy Pace MD [Staff Physician] - - Patient Discharge Instructions Patient Printed Discharge Instructions: DI for Knee Pain Additional Instructions: Today you were evaluated for leg and knee pain. We have examined your leg and have found no new or concerning findings after your hospitalization. Your x- rays from your last hospital stay do not show any concerning findings or broken bones. You are already taking methadone at home, please take it as prescribed. We have included a referral to an senior tax specialist for further evaluation of your leg injuries. At home, please take your medications as prescribed. Please follow-up with your primary doctor in the next 3 days for further care. If you experience worsening pain, have blood in your urine, lose consciousness, have chest pain or shortness of breath, or have any other new or concerning symptoms, please return to the emergency room. - Post Discharge Activity
--- NOTE | 2019-09-27 08:47 | PDOC ---
Attending Attestation - Resident Resident Name: AlfreditomohamudDariusLogan - ED Attending Attestation I have performed the following: I have examined & evaluated the patient, The case was reviewed & discussed with the resident, I agree w/resident's findings & plan, Exceptions are as noted - HPI HPI: 09/27/19 08:58 63 years old with chronic right foot deformity uses wheelchair presented to the emergency department last week and was admitted secondary to fall imaging was negative patient was not happy with her hospital visit and was discharged home today she had called the police to complain about the visit police sent an ambulance to her house to assess her home situation they saw the deformity on the patient's ankle could not confirm that it was chronic and brought patient to the emergency department. Patient has no acute complaints here in the emergency department today - Physicial Exam PE: 09/27/19 08:58 Vitals: Triage Vital signs reviewed General Appearance: No acute distress, well nourished well developed, Head: Atraumatic, Cardiac: Regular rate and rhythym, no murmurs, no rubs, no gallops, Lungs: Clear to auscultation bilateral, good air movement bilaterally, Abdomen: Soft, non distended, normal bowel sounds, non tender to palpation Extremities: Full range of motion to all extremities, chronic right ankle deformity no cyanosis, clubbing, or edema Skin: Warm and dry, no rashes or lesions, no rash, no petechiae Neuro: Strength intact to all extremities, sensation intact to all extremities, Psych: Normal mood, normal affect - Medical Decision Making 09/27/19 09:01 Previous notes and previous labs reviewed. No acute medical issues. Patient feels comfortable returning home. Will arrange for transport home. Findings, the need for follow-up and strict return instructions discussed with patient.
== END 2019-09-27 09:20 | disposition home or self-care (01) ==
LOC: JER 07:42
DX: S80.02XD Contusion of left knee, subsequent encounter (principal); W19.XXXD Unspecified fall, subsequent encounter; M21.961 Unspecified acquired deformity of right lower leg; M62.82 Rhabdomyolysis; I25.10 Atherosclerotic heart disease of native coronary artery without angina pectoris; I10 Essential (primary) hypertension; I25.2 Old myocardial infarction; E03.9 Hypothyroidism, unspecified; E78.00 Pure hypercholesterolemia, unspecified; F11.20 Opioid dependence, uncomplicated; F41.9 Anxiety disorder, unspecified; F31.9 Bipolar disorder, unspecified; Z91.018 Allergy to other foods; Z88.0 Allergy status to penicillin; Z88.8 Allergy status to other drugs, medicaments and biological substances; Z99.3 Dependence on wheelchair
CPT/HCPCS: 99281-25

== ENCOUNTER 2019-10-01 12:53 | Emergency (ER) | payer OTHER ==
[2019-10-01 13:07] VITALS: BP 139/72; TEMP 98; BMI 34.7
--- NOTE | 2019-10-01 15:38 | PDOC ---
*Physical Exam - Vital Signs Last Vital Signs Temp Pulse Resp BP Pulse Ox 98 F 83 18 139/72 97 10/01/19 13:03 10/01/19 13:03 10/01/19 13:03 10/01/19 13:03 10/01/19 13:03 ED Treatment Course - LABORATORY CBC & Chemistry Diagram: 10/01/19 17:30 10/01/19 17:30 Medical Decision Making - Medical Decision Making 10/01/19 15:38 Ms Del Rosario is a 63-year-old woman who presents to the ER with a complain of diarrhea, left leg pain and right-sided chest pain present for 2+ weeks Pt is able to flex and extend knee Pt requesting narcotic pain medications Given Tylenol for pain CXR Labs including cardiac profile Chest x-ray, right rib series Ancillary studies all pending Dispo per studies Discharge - Discharge Information Problems reviewed: Yes Clinical Impression/Diagnosis: Diarrhea Qualifiers: Diarrhea type: unspecified type Qualified Code(s): R19.7 - Diarrhea, unspecified Knee pain, left Qualifiers: Chronicity: acute Qualified Code(s): M25.562 - Pain in left knee Right rib fracture Qualifiers: Encounter type: initial encounter Rib fracture type: single rib Fracture type: closed Qualified Code(s): S22.31XA - Fracture of one rib, right side, initial encounter for closed fracture Condition: Fair Disposition: HOME - Follow up/Referral Referrals: ON STAFF,NOT [Primary Care Provider] - - Patient Discharge Instructions Additional Instructions: Use incentive spirometer 10 times every hour until you follow-up with your doctor. Continue taking previously prescribed medications. It is important that you follow-up with your primary doctor as your ER visit is not complete until you do so. Return to the emergency department for any new or worsening symptoms. Thank you very much for choosing us to provide your emergent health care needs. - Post Discharge Activity
[2019-10-01] MEDS ORDERED: ACETAMINOPHEN 500 MG TABLET (FP) PO ONE (15:55)
--- NOTE | 2019-10-01 15:56 | PDOC ---
History of Present Illness - General Chief Complaint: Pain Stated Complaint: FALL Time Seen by Provider: 10/01/19 13:17 History Source: Patient, Old Records Exam Limitations: No Limitations - History of Present Illness Initial Comments: 10/01/19 15:59 HISTORY OF PRESENT ILLNESS: 63-year-old woman with past medical history of anxiety, opiate use-on methadone for 30 years, [place], recent rhabdomyolysis who presents emergency department for evaluation of continued left knee pain, diarrhea for 3 weeks, right-sided chest pain. Patient reports his symptoms had started approximately 3 weeks ago when she fell out of her wheelchair and got caught between the dresser in the wall. Patient presented to this emergency department and was admitted for rhabdomyolysis. Patient stated she left the hospital AGAINST MEDICAL ADVICE because "they gave me the wrong Xanax." Patient did not believe the medication she was receiving was the correct medicine because the color of the pill was different. Patient is here for continued pain reports she will stay in the hospital if needed. Patient is speaking with vocal haney throughout exam until confronted with story on Xanax. Her voice returned to normal and she was very clear and forceful in her ability to identify medications. No recent travel or sick contacts. PAST MEDICAL HISTORY: See HPI SURGICAL HISTORY: Denies ALLERGIES: Penicillin, phenobarbital REVIEW OF SYSTEMS General/Constitutional: Denies fever or chills. Denies weakness, weight change. HEENT: Denies change in vision. Denies ear pain or discharge. Denies sore throat. Cardiovascular: See HPI Respiratory: Denies cough, wheezing, or hemoptysis. Gastrointestinal: Denies nausea, vomiting, diarrhea or constipation. Denies rectal bleeding. Genitourinary: Denies dysuria, frequency, or change in urination. Musculoskeletal: See HPI Skin and breasts: Denies rash or easy bruising. Neurologic: Denies headache, vertigo, loss of consciousness, or loss of sensation. Psychiatric: Denies depression or anxiety. Endocrine: Denies increased thirst. Denies abnormal weight change. Hematologic/Lymphatic: Denies anemia, easy bleeding, or history of blood clots. Allergic/Immunologic: Denies hives or skin allergy. Denies latex allergy. PHYSICAL EXAM General Appearance: Well-appearing, appropriately dressed. No apparent distress , no intoxication. HEENT: EOMI, PERRLA, normal ENT inspection, normal voice, TMs normal, pharynx normal. No conjunctival pallor. No photophobia, scleral icterus. Neck: Supple. Trachea midline. No tenderness, rigidity, carotid bruit, stridor , lymphadenopathy, or thyromegaly. Respiratory/Chest: Lungs CTAB. No shortness of breath, respiratory distress, accessory muscle use. No crackles, rales, rhonchi, stridor, wheezing, dullness. Chest tender to palpation over the seventh rib on the right side in the anterior lateral aspect. No deformity, crepitus or step-off is present. No flail chest is noted. Cardiovascular: RRR. S1, S2. No JVD, murmur, bradycardia, tachycardia. Vascular Pulses: Dorsalis-Pedis (R): 2+, Dorsalis-Pedis (L): 2+ Gastrointestinal/Abdominal: Normal bowel sounds. Abdomen soft, non-distended. No tenderness or rebound tenderness. No organomegaly, pulsatile mass, guarding, hernia, hepatomegaly, splenomegaly. Lymphatic: No adenopathy, tenderness. Musculoskeletal/Extremities: Swelling of the left knee noted with resolving ecchymosis present. Decreased flexion of her left knee secondary to pain. 2 wounds to the anterior right lower leg with scabs present. Minimal erythema surrounding the wound without discharge or drainage. No tenderness upon palpation. Chronic deformity of the left ankle present. Neurovascularly intact. Integumentary: See musculoskeletal assessment. Neurologic: plug paster II-XII intact. Fully oriented, alert. Appropriate mood/affect. Motor strength 5/5. No appreciable EOM palsy, facial droop or sensory deficit. Past History - Past Medical History Allergies/Adverse Reactions: Allergies Allergy/AdvReac Type Severity Reaction Status Date / Time Penicillins Allergy Severe Swelling Verified 10/01/19 13:08 peanut Allergy Unknown Verified 10/01/19 13:08 phenobarbital Allergy Verified 10/01/19 13:08 Home Medications: Ambulatory Orders Levothyroxine [Synthroid -] 125 mcg PO DAILY 01/22/17 Methadone [Dolophine -] 140 mg PO DAILY 10/07/17 Ranitidine [Zantac -] 150 mg PO DAILY 10/07/17 Alprazolam [Xanax] 2 mg PO TID 10/31/17 Epinephrine [Epipen] 0.3 mg IJ PRN PRN 12/29/17 Ibuprofen [Motrin -] 400 mg PO PRN PRN 12/29/17 Diclofenac Sodium 100 gm TP BID PRN #1 gel..gram. 11/17/18 Anemia: No Asthma: No Cancer: No Cardiac Disorders: Yes ([place]) CVA: No COPD: No DVT: No Dementia: No Diabetes: No GI Disorders: No Disorders: No HTN: Yes Hypercholesterolemia: Yes Liver Disease: No Psychiatric Problems: Yes (anxiety disorder) Seizures: Yes Thyroid Disease: Yes (Hypothyroid) - Surgical History Abdominal Surgery: No Appendectomy: No Cardiac Surgery: No Cholecystectomy: No Lung Surgery: Yes (L. Lung) Neurologic Surgery: No Orthopedic Surgery: No - Immunization History Immunization Up to Date: Yes - Psycho Social/Smoking Cessation Hx Smoking History: Current every day smoker Have you smoked in the past 12 months: No Number of Cigarettes Smoked Daily: 5 If you are a former smoker, when did you quit?: 03/18/15 Information on smoking cessation initiated: No 'Breaking Loose' booklet given: 10/10/17 Hx Alcohol Use: No Drug/Substance Use Hx: No Substance Use Type: None Hx Substance Use Treatment: Yes *Physical Exam - Vital Signs Last Vital Signs Temp Pulse Resp BP Pulse Ox 98 F 83 18 139/72 97 10/01/19 13:03 10/01/19 13:03 10/01/19 13:03 10/01/19 13:03 10/01/19 13:03 ED Treatment Course - LABORATORY CBC & Chemistry Diagram: 10/01/19 17:30 10/01/19 17:30 - RADIOLOGY Radiology Studies Ordered: Category Date Time Status LOWER EXTREMITY CT W/O CONTR [CT] Stat CT Scan 10/01/19 15:24 Ordered CHEST PA & LAT [RAD] Stat Radiology 10/01/19 15:18 Ordered RIBS RIGHT SIDE [RAD] Stat Radiology 10/01/19 15:18 Ordered Medical Decision Making - Medical Decision Making 10/01/19 16:04 A/P: 63-year-old woman with diarrhea, left leg pain and right-sided chest pain present for 2+ weeks PE is less likely because of her chest pain is patient noted to be thrombocytopenic on recent admission. Patient reports she is chronically trouble cytopenic and has not been able to get surgery to repair her left ankle chronic deformity. Likely musculoskeletal in nature as there is tenderness upon palpation over the rib where the pain is. As there is no flail chest or deformity this is likely muscular or fracture. Labs including cardiac profile Chest x-ray, right rib series CT of the left knee to rule out occult fracture given apparent vicki-arthrosis and thrombocytopenia EKG Tylenol 1 g IV now Reassess 10/01/19 20:28 Laboratory testing is unremarkable and resolution of the rhabdomyolysis is confirmed. Patient reports she feels better after receiving 5 oxycodone. X-rays as read by me: Old fracture to the ninth rib on the right side Chest x-ray as read by me: Angles clear. Cardiac silhouette is within normal limits. No focal infiltrates or consolidations noted. Patient is refusing CT of her knee at this time. As x-ray read had no fractures patient is currently able to fully flex and extend knee I will discontinue CT and discharge patient home with orthopedic follow-up. I discussed the physical exam findings, ancillary test results and final diagnoses with the patient. I answered all of the patient's questions. The patient was satisfied with the care received and felt comfortable with the discharge plan and treatment plan. The patient will call their primary care physician within 24 hours to arrange follow-up and will return to the Emergency Department with any new, persistent or worsening symptoms. 10/01/19 20:36 Discharge - Discharge Information Problems reviewed: Yes Clinical Impression/Diagnosis: Diarrhea Qualifiers: Diarrhea type: unspecified type Qualified Code(s): R19.7 - Diarrhea, unspecified Knee pain, left Qualifiers: Chronicity: acute Qualified Code(s): M25.562 - Pain in left knee Right rib fracture Qualifiers: Encounter type: initial encounter Rib fracture type: single rib Fracture type: closed Qualified Code(s): S22.31XA - Fracture of one rib, right side, initial encounter for closed fracture Condition: Fair Disposition: HOME - Admission No - Follow up/Referral Referrals: ON STAFF,NOT [Primary Care Provider] - - Patient Discharge Instructions Additional Instructions: Use incentive spirometer 10 times every hour until you follow-up with your doctor. Continue taking previously prescribed medications. It is important that you follow-up with your primary doctor as your ER visit is not complete until you do so. Return to the emergency department for any new or worsening symptoms. Thank you very much for choosing us to provide your emergent health care needs. - Post Discharge Activity
[2019-10-01] MEDS ORDERED: ACETAMINOPHEN 325 MG TABLET (FP) ONE (17:04)
[2019-10-01] MEDS ORDERED: ALPRAZolam 1 MG TABLET PO PRN (17:13)
[2019-10-01] MEDS ORDERED: ALPRAZolam 1 MG TABLET ONE (17:36)
[2019-10-01 18:05] LABS: BASO % 0.6 % (0-2.0); EOS % 2.5 % (0-4.5); HEMATOCRIT 40.9 % (32.4-45.2); LYMPH % 17.4 % (8-40); MCH 28.1 pg (25.7-33.7); MCHC 31.7 g/dl (32.0-36.0); MEAN CELL VOLUME 88.6 fl (80-96); MEAN PLT VOLUME 8.5 fl (7.5-11.1); MONO % 6.8 % (3.8-10.2); NEUT % 72.7 % (42.8-82.8); RBC 4.61 M/mm3 (3.60-5.2); RDW 16.2 % (11.6-15.6)
[2019-10-01 18:32] LABS: PLATELET ESTIMATE ADEQUATE
[2019-10-01 18:37] LABS: ALBUMIN 3.4 g/dl (3.4-5.0); BILIRUBIN,TOTAL 0.3 mg/dL (0.2-1); CALCIUM 8.6 mg/dL (8.5-10.1); CREATININE 0.7 mg/dL (0.55-1.3); POTASSIUM 4.2 mmol/L (3.5-5.1); TOT PROT 8.2 g/dl (6.4-8.2)
[2019-10-01] MEDS ORDERED: oxyCODONE HCL 5 MG TABLET PO ONE (18:42)
[2019-10-01] MEDS ORDERED: oxyCODONE HCL 5 MG TABLET ONE (19:16)
[2019-10-01 21:42] VITALS: PULSE 74
--- NOTE | 2019-10-02 23:18 | EKG ---
Test Reason : Blood Pressure : / mmHG Vent. Rate : 067 BPM Atrial Rate : 067 BPM P-R Int : 162 ms QRS Dur : 086 ms QT Int : 460 ms P-R-T Axes : 061 073 108 degrees QTc Int : 486 ms NORMAL SINUS RHYTHM NONSPECIFIC ST AND T WAVE ABNORMALITY PROLONGED QT ABNORMAL ECG WHEN COMPARED WITH ECG OF 25-SEP-2019 02:10, NO SIGNIFICANT CHANGE WAS FOUND Confirmed by CHEN RODRÍGUEZ, YANICK ([id number]) on 10/02/2019 11:17:54 PM Referred By: Confirmed By:YANICK SIDDIQUI MD
== END 2019-10-01 21:40 | disposition home or self-care (01) ==
LOC: JERFT 12:53 → JER 12:53
DX: R07.9 Chest pain, unspecified (principal); R19.7 Diarrhea, unspecified; M25.562 Pain in left knee; I25.10 Atherosclerotic heart disease of native coronary artery without angina pectoris; I10 Essential (primary) hypertension; I25.2 Old myocardial infarction; E03.9 Hypothyroidism, unspecified; E78.00 Pure hypercholesterolemia, unspecified; F11.20 Opioid dependence, uncomplicated; F41.9 Anxiety disorder, unspecified; Z86.69 Personal history of other diseases of the nervous system and sense organs; Z99.3 Dependence on wheelchair; Z88.0 Allergy status to penicillin; Z88.8 Allergy status to other drugs, medicaments and biological substances; Z91.018 Allergy to other foods; Z87.81 Personal history of (healed) traumatic fracture; S22.31XS Fracture of one rib, right side, sequela; W05.0XXS Fall from non-moving wheelchair, sequela
CPT/HCPCS: 36415; 71046-TC-FY; 71101-TC-RT-FY; 80053; 82550; 82553; 84484; 85025; 93005; 93010; 99282-25

== ENCOUNTER 2021-09-27 07:56 | Emergency (ER) | payer OTHER ==
[2021-09-27 08:30] VITALS: BP 164/50; PULSE 83; TEMP 97.4; BMI 34.7
[2021-09-27] MEDS ORDERED: KETOROLAC TROMETHAMINE 30 MG/1 ML VIAL IM ONE (12:19)
[2021-09-27] MEDS ORDERED: KETOROLAC TROMETHAMINE 30 MG/1 ML VIAL ONE (12:27)
== END 2021-09-27 13:22 | disposition home or self-care (01) ==
LOC: JER 07:56
PROC: 3E0233Z Introduction of Anti-inflammatory into Muscle, Percutaneous Approach (ICD-10-PCS; principal; 2021-09-27)
DX: M25.512 Pain in left shoulder (principal)
CPT/HCPCS: 73030-TC-LT-FY; 73070-TC-LT-FY; 99284-25

== ENCOUNTER 2021-10-11 07:44 | Inpatient (IN) | payer OTHER ==
[2021-10-11 08:03] VITALS: BMI 40.3
[2021-10-11 12:19] LABS: VENOUS BASE EXCESS 1.6 mmol/L (-2-2); VENOUS O2 SATURATION 68.7 % (70-80); VENOUS PCO2 55.2 mmHg (38-52); VENOUS PH 7.324 (7.310-7.410)
[2021-10-11 12:25] LABS: RBC 3.76 M/mm3 (3.60-5.2); RDW 21.6 % (11.6-15.6)
[2021-10-11 12:26] LABS: MCH 17.9 pg (25.7-33.7); WHITE BLOOD COUNT 21.6 K/mm3 (4.0-10.0)
[2021-10-11 12:31] LABS: HEMOGLOBIN 6.7 GM/dL (10.7-15.3)
[2021-10-11 12:59] LABS: CHLORIDE 101 mmol/L (98-107); SODIUM 136 mmol/L (136-145)
[2021-10-11 13:01] LABS: ALBUMIN 2.5 g/dl (3.4-5.0); ANION GAP 9 MMOL/L (8-16); BLOOD UREA NITROGEN 20.9 mg/dL (7-18); CALCIUM 8.2 mg/dL (8.5-10.1); CO2 26 mmol/L (21-32); GLUCOSE,RANDOM 87 mg/dL (74-106)
[2021-10-11 13:04] LABS: CREATININE 1.2 mg/dL (0.55-1.3); SGOT/AST 51 U/L (15-37); SGPT/ALT 137 U/L (13-61)
[2021-10-11 13:06] LABS: ANISOCYTOSIS 3+; MACROCYTOSIS 0; PLATELET ESTIMATE DECREASED
[2021-10-11 13:06] LABS: BILIRUBIN,TOTAL 0.6 mg/dL (0.2-1); TOT PROT 7.6 g/dl (6.4-8.2)
[2021-10-11 13:07] LABS: ALK PHOS 94 U/L (45-117)
[2021-10-11] MEDS ORDERED: HEPARIN NA (PORCINE) 5,000 UNITS/ML 1ML VIAL IVPUSH ONE (14:26)
[2021-10-11] MEDS ORDERED: ACETAMINOPHEN 1000 MG/100 ML BAG IVPB ONE (14:30)
[2021-10-11] MEDS ORDERED: HEPARIN NA (PORCINE) 5,000 UNITS/ML 1ML VIAL ONE (14:32)
[2021-10-11] MEDS ORDERED: ACETAMINOPHEN INJECTION 100 ML IVPB ONE (14:44)
[2021-10-11] MEDS ORDERED: MEROPENEM 1 GM in DEXTROSE 5%-WATER 100 ML IVPB ONE (16:11)
[2021-10-11] MEDS: HEPARIN - 25,000 UNIT in SODIUM CHLORIDE 495 ML IV SCH (16:56)
[2021-10-11] MEDS ORDERED: MEROPENEM 1 GM VIAL (RESTRICTED TO ID) IVPB ONE (17:13)
[2021-10-11 17:26] LABS: BASO % 1.4 % (0-2.0); EOS % 2.8 % (0-4.5); HEMATOCRIT 23.8 % (32.4-45.2); LYMPH % 8.1 % (8-40); MCHC 28.6 g/dl (32.0-36.0); MEAN CELL VOLUME 65.3 fl (80-96); MEAN PLT VOLUME 8.6 fl (7.5-11.1); MONO % 5.2 % (3.8-10.2); NEUT % 82.5 % (42.8-82.8); PLATELET COUNT 199 10^3/uL (134-434); RBC 3.64 M/mm3 (3.60-5.2); RDW 22.8 % (11.6-15.6); WHITE BLOOD COUNT 15.2 K/mm3 (4.0-10.0)
[2021-10-11 17:29] LABS: MCH 18.6 pg (25.7-33.7)
[2021-10-11 17:31] LABS: HEMOGLOBIN 6.8 GM/dL (10.7-15.3)
[2021-10-11 17:35] LABS: INR 1.26 (0.83-1.09); PROTHROMBIN TIME (PATIENT) 14.8 SEC (9.7-13.0)
[2021-10-11 17:38] LABS: ACTIVATED PTT 72.7 SECONDS (25.2-36.5)
[2021-10-11] MEDS: SODIUM CHLORIDE 1,000 ML IV SCH (19:43)
[2021-10-11 19:57] LABS: HEMATOCRIT 26.6 % (32.4-45.2); HEMOGLOBIN 7.7 GM/dL (10.7-15.3); MCHC 28.9 g/dl (32.0-36.0); MEAN CELL VOLUME 66.6 fl (80-96); PLATELET COUNT 104 10^3/uL (134-434); RBC 3.99 M/mm3 (3.60-5.2); RDW 24.1 % (11.6-15.6); WHITE BLOOD COUNT 15.4 K/mm3 (4.0-10.0)
[2021-10-11 20:03] LABS: MCH 19.2 pg (25.7-33.7)
[2021-10-11 20:26] LABS: EPI CELLS 24 /uL (0-25.1); HYALINE CASTS 6 /uL (0-3.1); URINE APPEARANCE CLOUDY; URINE BACTERIA >9,000 /uL (0-1359); URINE BILIRUBIN NEGATIVE (NEGATIVE); URINE COLOR YELLOW; URINE GLUCOSE (UA) NEGATIVE (NEGATIVE); URINE KETONE TRACE (NEGATIVE); URINE LEUK ESTERASE 1+ (NEGATIVE); URINE NITRITE NEGATIVE (NEGATIVE); URINE PROTEIN TRACE (NEGATIVE); URINE RBC 15 /uL (0-23.9); URINE WBC 83 /uL (0-25.8)
[2021-10-11] MEDS ORDERED: PANTOPRAZOLE SODIUM 40 MG VIAL ONE (23:28)
[2021-10-11] MEDS: PANTOPRAZOLE SODIUM 40 MG VIAL IVPUSH SCH (23:31)
[2021-10-12 02:11] LABS: EOS % 3.9 % (0-4.5); HEMATOCRIT 24.2 % (32.4-45.2); LYMPH % 8.3 % (8-40); MCHC 28.9 g/dl (32.0-36.0); MEAN CELL VOLUME 66.5 fl (80-96); MEAN PLT VOLUME 8.6 fl (7.5-11.1); MONO % 5.7 % (3.8-10.2); NEUT % 82.1 % (42.8-82.8); PLATELET COUNT 120 10^3/uL (134-434); RBC 3.64 M/mm3 (3.60-5.2); RDW 24.1 % (11.6-15.6); WHITE BLOOD COUNT 13.1 K/mm3 (4.0-10.0)
[2021-10-12 02:41] LABS: MCH 19.2 pg (25.7-33.7)
[2021-10-12] MEDS ORDERED: ACETAMINOPHEN 1000 MG/100 ML BAG IVPB ONE (05:00)
[2021-10-12] MEDS ORDERED: ACETAMINOPHEN INJECTION 100 ML IVPB ONE (05:04)
[2021-10-12 05:32] LABS: ANISOCYTOSIS 2+; MACROCYTOSIS 0; OVALOCYTE 1+; PLATELET ESTIMATE DECREASED
[2021-10-12] MEDS ORDERED: methaDONE HCL 10 MG TABLET ONE (09:40)
[2021-10-12] MEDS ORDERED: methaDONE HCL 40 MG DISPERSABLE TABLET ONE (09:41)
[2021-10-12] MEDS: PANTOPRAZOLE SODIUM 40 MG VIAL IVPUSH SCH (12:00)
[2021-10-12] MEDS: HEPARIN - 25,000 UNIT in SODIUM CHLORIDE 495 ML IV SCH (14:30)
[2021-10-12] MEDS ORDERED: MEROPENEM 1 GM VIAL (RESTRICTED TO ID) IVPB ONE (15:18)
[2021-10-12] MEDS: MEROPENEM 1 GM in DEXTROSE 5%-WATER 100 ML IVPB SCH (15:33)
[2021-10-12] MEDS ORDERED: ALPRAZolam 1 MG TABLET PO PRN (16:07)
[2021-10-12] MEDS: ALPRAZolam 1 MG TABLET PO PRN (17:24)
[2021-10-12] MEDS ORDERED: ALPRAZolam 1 MG TABLET ONE ×2 (17:27→23:47)
[2021-10-12] MEDS: ALPRAZolam 1 MG TABLET PO SCH (23:56)
[2021-10-13] MEDS ORDERED: MEROPENEM 1 GM VIAL (RESTRICTED TO ID) IVPB ONE ×4 (00:04→18:10)
[2021-10-13] MEDS: MEROPENEM 1 GM in DEXTROSE 5%-WATER 100 ML IVPB SCH ×4 (00:21→18:18)
[2021-10-13] MEDS: SODIUM CHLORIDE 1,000 ML IV SCH ×2 (01:00→21:30)
[2021-10-13] MEDS: PANTOPRAZOLE SODIUM 80 MG in SODIUM CHLORIDE 100 ML IVPB SCH ×4 (01:00→21:32)
[2021-10-13] MEDS ORDERED: DEXTROSE 5%-WATER 100 ML IVPB ONE ×3 (03:33→18:10)
[2021-10-13] MEDS ORDERED: methaDONE HCL 40 MG DISPERSABLE TABLET ONE (06:44)
[2021-10-13] MEDS ORDERED: methaDONE HCL 10 MG TABLET ONE (06:45)
[2021-10-13 07:34] LABS: BASO % 0.5 % (0-2.0); EOS % 3.1 % (0-4.5); HEMATOCRIT 27.7 % (32.4-45.2); HEMOGLOBIN 8.4 GM/dL (10.7-15.3); LYMPH % 10.5 % (8-40); MCHC 30.3 g/dl (32.0-36.0); MEAN CELL VOLUME 69.4 fl (80-96); MEAN PLT VOLUME 8.2 fl (7.5-11.1); MONO % 5.4 % (3.8-10.2); NEUT % 80.5 % (42.8-82.8); PLATELET COUNT 76 10^3/uL (134-434); RDW 24.8 % (11.6-15.6)
[2021-10-13 07:40] LABS: INR 1.28 (0.83-1.09); PROTHROMBIN TIME (PATIENT) 14.4 SEC (9.7-13.0)
[2021-10-13 07:46] LABS: WHITE BLOOD COUNT 13.6 K/mm3 (4.0-10.0)
[2021-10-13 07:51] LABS: ALBUMIN 2.1 g/dl (3.4-5.0); BLOOD UREA NITROGEN 10.6 mg/dL (7-18); MAGNESIUM 2.2 mg/dL (1.8-2.4)
[2021-10-13 07:54] LABS: CREATININE 0.8 mg/dL (0.55-1.3)
[2021-10-13 07:55] LABS: BILIRUBIN,TOTAL 0.6 mg/dL (0.2-1)
[2021-10-13 07:56] LABS: TOT PROT 6.4 g/dl (6.4-8.2)
[2021-10-13] MEDS: ALPRAZolam 1 MG TABLET PO PRN (09:06)
[2021-10-13 09:09] LABS: PLATELET ESTIMATE DECREASED
[2021-10-13] MEDS: ALPRAZolam 1 MG TABLET PO SCH ×2 (09:14→21:34)
[2021-10-13] MEDS ORDERED: methaDONE HCL 10 MG TABLET PO SCH (10:00)
[2021-10-13] MEDS: HEPARIN - 25,000 UNIT in SODIUM CHLORIDE 495 ML IV SCH ×2 (10:29→14:30)
[2021-10-13] MEDS ORDERED: PT OWN MED DRAWER 7, Y5N ONE (13:21)
[2021-10-13] MEDS ORDERED: ALPRAZolam 1 MG TABLET PO PRN (16:28)
[2021-10-13] MEDS ORDERED: LEVOTHYROXINE NA 125 MCG TABLET (FP) PO ONE (16:29)
[2021-10-13 16:47] LABS: EOS % 3.8 % (0-4.5); HEMATOCRIT 26.1 % (32.4-45.2); HEMOGLOBIN 7.8 GM/dL (10.7-15.3); LYMPH % 10.3 % (8-40); MCH 20.5 pg (25.7-33.7); MCHC 29.7 g/dl (32.0-36.0); MEAN CELL VOLUME 68.9 fl (80-96); MEAN PLT VOLUME 8.1 fl (7.5-11.1); MONO % 5.6 % (3.8-10.2); NEUT % 79.3 % (42.8-82.8); PLATELET COUNT 125 10^3/uL (134-434); RBC 3.79 M/mm3 (3.60-5.2); RDW 24.5 % (11.6-15.6); WHITE BLOOD COUNT 10.4 K/mm3 (4.0-10.0)
[2021-10-13 17:26] LABS: PLATELET ESTIMATE DECREASED
[2021-10-14] MEDS: PANTOPRAZOLE SODIUM 80 MG in SODIUM CHLORIDE 100 ML IVPB SCH ×3 (02:06→18:54)
[2021-10-14] MEDS ORDERED: MEROPENEM 1 GM VIAL (RESTRICTED TO ID) IVPB ONE (02:20)
[2021-10-14] MEDS ORDERED: DEXTROSE 5%-WATER 100 ML IVPB ONE (02:20)
[2021-10-14] MEDS ORDERED: ACETAMINOPHEN 1000 MG/100 ML BAG IVPB ONE (02:31)
[2021-10-14] MEDS: MEROPENEM 1 GM in DEXTROSE 5%-WATER 100 ML IVPB SCH ×2 (02:50→09:23)
[2021-10-14] MEDS: HEPARIN - 25,000 UNIT in SODIUM CHLORIDE 495 ML IV SCH ×2 (04:06→18:42)
[2021-10-14] MEDS ORDERED: methaDONE HCL 40 MG DISPERSABLE TABLET ONE (05:03)
[2021-10-14] MEDS ORDERED: methaDONE HCL 10 MG TABLET ONE (05:04)
[2021-10-14] MEDS: ALPRAZolam 1 MG TABLET PO PRN ×2 (06:00→15:38)
[2021-10-14] MEDS: LEVOTHYROXINE NA 125 MCG TABLET (FP) PO SCH (06:15)
[2021-10-14 07:39] LABS: HEMATOCRIT 25.3 % (32.4-45.2); HEMOGLOBIN 7.8 GM/dL (10.7-15.3); MCH 21.2 pg (25.7-33.7); MCHC 30.9 g/dl (32.0-36.0); MEAN CELL VOLUME 68.7 fl (80-96); MEAN PLT VOLUME 8.3 fl (7.5-11.1); PLATELET COUNT 98 10^3/uL (134-434); RBC 3.69 M/mm3 (3.60-5.2); RDW 25.3 % (11.6-15.6)
[2021-10-14 08:22] LABS: WHITE BLOOD COUNT 10.7 K/mm3 (4.0-10.0)
[2021-10-14] MEDS: ALPRAZolam 1 MG TABLET PO SCH ×2 (09:43→21:40)
[2021-10-14] MEDS: FERROUS GLUCONATE 324 MG TAB (FP) PO SCH ×2 (11:29→18:45)
[2021-10-14] MEDS: DOCUSATE SODIUM 100 MG CAPSULE (FP) PO SCH ×2 (13:42→21:45)
[2021-10-14] MEDS ORDERED: ACETAMINOPHEN 325 MG TABLET (FP) PO PRN (15:41)
[2021-10-14] MEDS ORDERED: ACETAMINOPHEN 325 MG TABLET (FP) PO ONE (16:01)
[2021-10-14 17:01] LABS: BASO % 0.7 % (0-2.0); EOS % 3.4 % (0-4.5); HEMATOCRIT 26.2 % (32.4-45.2); HEMOGLOBIN 7.9 GM/dL (10.7-15.3); LYMPH % 11.9 % (8-40); MCH 20.8 pg (25.7-33.7); MCHC 30.3 g/dl (32.0-36.0); MEAN CELL VOLUME 68.6 fl (80-96); MONO % 6.2 % (3.8-10.2); NEUT % 77.8 % (42.8-82.8); RBC 3.82 M/mm3 (3.60-5.2); RDW 24.9 % (11.6-15.6); WHITE BLOOD COUNT 10.1 K/mm3 (4.0-10.0)
[2021-10-14 18:09] LABS: ANISOCYTOSIS 3+; MACROCYTOSIS 1+; OVALOCYTE 1+; PLATELET ESTIMATE DECREASED
[2021-10-14] MEDS ORDERED: HEPARIN NA (PORCINE) 5,000 UNITS/ML 1ML VIAL IVPUSH PRN ×2 (19:09)
[2021-10-14 20:13] LABS: BASO % 0.4 % (0-2.0); EOS % 3.1 % (0-4.5); HEMATOCRIT 25.8 % (32.4-45.2); HEMOGLOBIN 7.7 GM/dL (10.7-15.3); LYMPH % 11.2 % (8-40); MCH 20.5 pg (25.7-33.7); MCHC 29.9 g/dl (32.0-36.0); MEAN CELL VOLUME 68.6 fl (80-96); MONO % 5.2 % (3.8-10.2); NEUT % 80.1 % (42.8-82.8); RBC 3.76 M/mm3 (3.60-5.2); RDW 24.8 % (11.6-15.6); WHITE BLOOD COUNT 10.7 K/mm3 (4.0-10.0)
[2021-10-14 21:16] LABS: PLATELET ESTIMATE DECREASED
[2021-10-14] MEDS: ATORVASTATIN CA 40 MG TABLET (FP) PO SCH (21:39)
[2021-10-14] MEDS: SULFAMETHOXAZOLE/TRIMETHOPRIM 800MG/160MG D.S. TABLET PO SCH (21:39)
[2021-10-15] MEDS ORDERED: methaDONE HCL 10 MG TABLET ONE (05:24)
[2021-10-15] MEDS ORDERED: methaDONE HCL 40 MG DISPERSABLE TABLET ONE (05:24)
[2021-10-15] MEDS: DOCUSATE SODIUM 100 MG CAPSULE (FP) PO SCH ×2 (05:51→15:03)
[2021-10-15] MEDS: PANTOPRAZOLE SODIUM 80 MG in SODIUM CHLORIDE 100 ML IVPB SCH ×2 (06:01→16:20)
[2021-10-15] MEDS ORDERED: PT OWN MED DRAWER 7, Y5N ONE ×2 (06:01→10:31)
[2021-10-15] MEDS: LEVOTHYROXINE NA 125 MCG TABLET (FP) PO SCH (06:03)
[2021-10-15 07:28] LABS: MAGNESIUM 1.8 mg/dL (1.8-2.4)
[2021-10-15 07:32] LABS: PHOSPHOROUS 2.6 mg/dL (2.5-4.9)
[2021-10-15 08:27] LABS: HEMATOCRIT 27.5 % (32.4-45.2); HEMOGLOBIN 8.2 GM/dL (10.7-15.3); MCHC 29.9 g/dl (32.0-36.0); MEAN CELL VOLUME 70.1 fl (80-96); RBC 3.92 M/mm3 (3.60-5.2); RDW 25.2 % (11.6-15.6); WHITE BLOOD COUNT 11.6 K/mm3 (4.0-10.0)
[2021-10-15] MEDS: FERROUS GLUCONATE 324 MG TAB (FP) PO SCH ×3 (10:47→17:40)
[2021-10-15] MEDS: SULFAMETHOXAZOLE/TRIMETHOPRIM 800MG/160MG D.S. TABLET PO SCH ×2 (10:47→22:30)
[2021-10-15] MEDS: ALPRAZolam 1 MG TABLET PO SCH (10:48)
[2021-10-15] MEDS: MAGNESIUM SULF 50% (8.12 MEQ/2 ML-1 GM VIAL) IVPB ONE ×2 (10:51→10:52)
[2021-10-15] MEDS: LIDOCAINE 5% TOPICAL PATCH TP SCH (15:01)
[2021-10-15] MEDS: ALPRAZolam 1 MG TABLET PO PRN ×2 (17:07→22:30)
[2021-10-15 17:32] LABS: BASO % 1.3 % (0-2.0); EOS % 2.2 % (0-4.5); HEMATOCRIT 25.4 % (32.4-45.2); HEMOGLOBIN 7.4 GM/dL (10.7-15.3); LYMPH % 9.2 % (8-40); MCH 20.4 pg (25.7-33.7); MCHC 29.3 g/dl (32.0-36.0); MEAN CELL VOLUME 69.6 fl (80-96); MONO % 4.9 % (3.8-10.2); NEUT % 82.4 % (42.8-82.8); RBC 3.66 M/mm3 (3.60-5.2); RDW 25.3 % (11.6-15.6); WHITE BLOOD COUNT 12.6 K/mm3 (4.0-10.0)
[2021-10-15] MEDS: HEPARIN - 25,000 UNIT in SODIUM CHLORIDE 495 ML IV SCH (17:34)
[2021-10-15] MEDS: POLYETHYLENE GLYCOL (HEALTHYLAX) 3350 17 GM PACKET PO SCH (22:27)
[2021-10-15] MEDS: LIDOCAINE PATCH REMOVAL MC SCH (22:30)
[2021-10-15] MEDS: ATORVASTATIN CA 40 MG TABLET (FP) PO SCH (22:30)
[2021-10-15] MEDS: PANTOPRAZOLE 40 MG TABLET PO SCH (22:30)
[2021-10-16] MEDS ORDERED: ALPRAZolam 1 MG TABLET PO ONE (04:59)
[2021-10-16] MEDS ORDERED: methaDONE HCL 40 MG DISPERSABLE TABLET ONE (05:04)
[2021-10-16] MEDS ORDERED: methaDONE HCL 10 MG TABLET ONE (05:04)
[2021-10-16] MEDS: LEVOTHYROXINE NA 125 MCG TABLET (FP) PO SCH (06:59)
[2021-10-16 08:28] LABS: CALCIUM 7.9 mg/dL (8.5-10.1)
[2021-10-16 08:29] LABS: ALBUMIN 1.8 g/dl (3.4-5.0); BLOOD UREA NITROGEN 5.2 mg/dL (7-18); MAGNESIUM 1.9 mg/dL (1.8-2.4)
[2021-10-16 08:32] LABS: CREATININE 0.7 mg/dL (0.55-1.3)
[2021-10-16 08:33] LABS: BILIRUBIN,TOTAL 0.5 mg/dL (0.2-1); TOT PROT 5.7 g/dl (6.4-8.2)
[2021-10-16 08:40] LABS: BASO % 0.5 % (0-2.0); HEMATOCRIT 25.1 % (32.4-45.2); HEMOGLOBIN 7.5 GM/dL (10.7-15.3); MCH 20.9 pg (25.7-33.7); MCHC 29.9 g/dl (32.0-36.0); MEAN CELL VOLUME 69.8 fl (80-96); MEAN PLT VOLUME 8.7 fl (7.5-11.1); MONO % 4.2 % (3.8-10.2); NEUT % 86.3 % (42.8-82.8); RDW 25.6 % (11.6-15.6); WHITE BLOOD COUNT 12.6 K/mm3 (4.0-10.0)
[2021-10-16] MEDS: AMINO ACIDS/PROTEIN HYDROLYS 30 ML LIQUID.PKT PO SCH ×2 (10:29→16:31)
[2021-10-16] MEDS: SULFAMETHOXAZOLE/TRIMETHOPRIM 800MG/160MG D.S. TABLET PO SCH (10:29)
[2021-10-16] MEDS: MULTIVITAMINS THER W-MINERALS COMBO TABLET (FP) PO SCH (10:29)
[2021-10-16] MEDS: LIDOCAINE 5% TOPICAL PATCH TP SCH (10:29)
[2021-10-16] MEDS: POLYETHYLENE GLYCOL (HEALTHYLAX) 3350 17 GM PACKET PO SCH ×2 (10:29→10:45)
[2021-10-16] MEDS: PANTOPRAZOLE 40 MG TABLET PO SCH ×2 (10:30→22:07)
[2021-10-16] MEDS: ASCORBIC ACID 250 MG TABLET (FP) PO SCH (10:30)
[2021-10-16] MEDS: FERROUS GLUCONATE 324 MG TAB (FP) PO SCH ×3 (10:30→16:31)
[2021-10-16] MEDS ORDERED: IRON SUCROSE INJECTION 200 MG in SODIUM CHLORIDE 90 ML IVPB ONE (11:01)
[2021-10-16] MEDS: ALPRAZolam 1 MG TABLET PO PRN ×2 (12:50→16:27)
[2021-10-16] MEDS ORDERED: HEPARIN NA (PORCINE) 5,000 UNITS/ML 1ML VIAL IVPUSH PRN ×4 (14:17→14:40)
[2021-10-16] MEDS: HEPARIN - 25,000 UNIT in SODIUM CHLORIDE 495 ML IV SCH (16:25)
[2021-10-16 17:14] LABS: BASO % 0.6 % (0-2.0); EOS % 2.4 % (0-4.5); HEMATOCRIT 25.4 % (32.4-45.2); HEMOGLOBIN 7.6 GM/dL (10.7-15.3); LYMPH % 10.8 % (8-40); MCH 20.6 pg (25.7-33.7); MCHC 29.8 g/dl (32.0-36.0); MEAN CELL VOLUME 69.1 fl (80-96); MONO % 5.8 % (3.8-10.2); NEUT % 80.4 % (42.8-82.8); RBC 3.68 M/mm3 (3.60-5.2); RDW 25.5 % (11.6-15.6); WHITE BLOOD COUNT 11.1 K/mm3 (4.0-10.0)
[2021-10-16 18:01] LABS: PLATELET ESTIMATE SIGNIFICANT INCREASE
[2021-10-16] MEDS: ATORVASTATIN CA 40 MG TABLET (FP) PO SCH (22:07)
[2021-10-16] MEDS: LIDOCAINE PATCH REMOVAL MC SCH (22:07)
[2021-10-17] MEDS: ALPRAZolam 1 MG TABLET PO PRN ×2 (03:34→14:11)
[2021-10-17] MEDS ORDERED: methaDONE HCL 10 MG TABLET ONE (05:32)
[2021-10-17] MEDS ORDERED: methaDONE HCL 40 MG DISPERSABLE TABLET ONE (05:32)
[2021-10-17] MEDS: LEVOTHYROXINE NA 125 MCG TABLET (FP) PO SCH (06:37)
[2021-10-17 07:27] LABS: EOS % 2.8 % (0-4.5); HEMATOCRIT 25.4 % (32.4-45.2); HEMOGLOBIN 7.7 GM/dL (10.7-15.3); MCHC 30.3 g/dl (32.0-36.0); MEAN CELL VOLUME 69.3 fl (80-96); MONO % 6.7 % (3.8-10.2); NEUT % 75.5 % (42.8-82.8); RBC 3.66 M/mm3 (3.60-5.2); WHITE BLOOD COUNT 8.7 K/mm3 (4.0-10.0)
[2021-10-17 07:43] LABS: INR 1.23 (0.83-1.09); PROTHROMBIN TIME (PATIENT) 13.8 SEC (9.7-13.0)
[2021-10-17 07:50] LABS: ALBUMIN 1.8 g/dl (3.4-5.0); BLOOD UREA NITROGEN 7.3 mg/dL (7-18); CALCIUM 7.8 mg/dL (8.5-10.1); MAGNESIUM 1.7 mg/dL (1.8-2.4)
[2021-10-17 07:52] LABS: CREATININE 0.6 mg/dL (0.55-1.3); PHOSPHOROUS 3.8 mg/dL (2.5-4.9)
[2021-10-17 07:53] LABS: BILIRUBIN,TOTAL 0.3 mg/dL (0.2-1); TOT PROT 5.8 g/dl (6.4-8.2)
[2021-10-17 08:53] LABS: PLATELET ESTIMATE DECREASED
[2021-10-17 08:54] LABS: MEAN PLT VOLUME 8.6 fl (7.5-11.1)
[2021-10-17] MEDS: FERROUS GLUCONATE 324 MG TAB (FP) PO SCH ×3 (09:32→17:44)
[2021-10-17] MEDS: MULTIVITAMINS THER W-MINERALS COMBO TABLET (FP) PO SCH (09:33)
[2021-10-17] MEDS: PANTOPRAZOLE 40 MG TABLET PO SCH ×2 (09:33→21:33)
[2021-10-17] MEDS: ASCORBIC ACID 250 MG TABLET (FP) PO SCH (09:33)
[2021-10-17] MEDS: LIDOCAINE 5% TOPICAL PATCH TP SCH (09:33)
[2021-10-17] MEDS: HEPARIN - 25,000 UNIT in SODIUM CHLORIDE 495 ML IV SCH ×4 (10:30→18:00)
[2021-10-17] MEDS: AMINO ACIDS/PROTEIN HYDROLYS 30 ML LIQUID.PKT PO SCH ×2 (10:30→17:44)
[2021-10-17] MEDS: ACETAMINOPHEN 1000 MG/100 ML BAG IVPB PRN ×2 (13:58→21:31)
[2021-10-17] MEDS: LIDOCAINE PATCH REMOVAL MC SCH (21:27)
[2021-10-17] MEDS: ATORVASTATIN CA 40 MG TABLET (FP) PO SCH (21:33)
[2021-10-18] MEDS: ALPRAZolam 1 MG TABLET PO PRN ×3 (01:58→22:25)
[2021-10-18] MEDS ORDERED: methaDONE HCL 40 MG DISPERSABLE TABLET ONE (05:42)
[2021-10-18] MEDS ORDERED: methaDONE HCL 10 MG TABLET ONE (05:43)
[2021-10-18 08:19] LABS: CALCIUM 8.3 mg/dL (8.5-10.1)
[2021-10-18 08:20] LABS: ALBUMIN 2.1 g/dl (3.4-5.0); BLOOD UREA NITROGEN 7.4 mg/dL (7-18)
[2021-10-18 08:24] LABS: CREATININE 0.6 mg/dL (0.55-1.3); PHOSPHOROUS 4.1 mg/dL (2.5-4.9)
[2021-10-18 08:25] LABS: BILIRUBIN,TOTAL 0.4 mg/dL (0.2-1); TOT PROT 6.3 g/dl (6.4-8.2)
[2021-10-18 08:30] LABS: BASO % 0.6 % (0-2.0); EOS % 3.6 % (0-4.5); HEMATOCRIT 27.4 % (32.4-45.2); HEMOGLOBIN 8.3 GM/dL (10.7-15.3); LYMPH % 8.3 % (8-40); MCH 21.1 pg (25.7-33.7); MCHC 30.2 g/dl (32.0-36.0); MEAN CELL VOLUME 69.7 fl (80-96); MEAN PLT VOLUME 8.1 fl (7.5-11.1); MONO % 6.8 % (3.8-10.2); NEUT % 80.7 % (42.8-82.8); RBC 3.94 M/mm3 (3.60-5.2); RDW 26.3 % (11.6-15.6); WHITE BLOOD COUNT 7.5 K/mm3 (4.0-10.0)
[2021-10-18] MEDS: FERROUS GLUCONATE 324 MG TAB (FP) PO SCH ×3 (08:55→17:22)
[2021-10-18] MEDS: AMINO ACIDS/PROTEIN HYDROLYS 30 ML LIQUID.PKT PO SCH ×3 (08:55→17:22)
[2021-10-18] MEDS: ACETAMINOPHEN 1000 MG/100 ML BAG IVPB PRN ×3 (08:56→20:29)
[2021-10-18] MEDS: MULTIVITAMINS THER W-MINERALS COMBO TABLET (FP) PO SCH (09:06)
[2021-10-18] MEDS: PANTOPRAZOLE 40 MG TABLET PO SCH (09:06)
[2021-10-18] MEDS: LIDOCAINE 5% TOPICAL PATCH TP SCH (09:07)
[2021-10-18] MEDS: ASCORBIC ACID 250 MG TABLET (FP) PO SCH (09:07)
[2021-10-18] MEDS: LEVOTHYROXINE NA 125 MCG TABLET (FP) PO SCH (09:08)
[2021-10-18 11:16] LABS: ANISOCYTOSIS 2+; MACROCYTOSIS 0; OVALOCYTE 1+; PLATELET ESTIMATE SIGNIFICANT INCREASE
[2021-10-18] MEDS: HEPARIN - 25,000 UNIT in SODIUM CHLORIDE 495 ML IV SCH (15:40)
[2021-10-18] MEDS ORDERED: POTASSIUM CHLORIDE TABS 20 MEQ TABLET.ER (FP) PO ONE (18:53)
[2021-10-18] MEDS: ATORVASTATIN CA 40 MG TABLET (FP) PO SCH (22:26)
[2021-10-19] MEDS: LIDOCAINE PATCH REMOVAL MC SCH ×2 (02:03→21:30)
[2021-10-19] MEDS: ACETAMINOPHEN 1000 MG/100 ML BAG IVPB PRN ×3 (04:48→13:27)
[2021-10-19] MEDS ORDERED: methaDONE HCL 40 MG DISPERSABLE TABLET ONE (05:09)
[2021-10-19] MEDS ORDERED: methaDONE HCL 10 MG TABLET ONE (05:10)
[2021-10-19] MEDS: LEVOTHYROXINE NA 125 MCG TABLET (FP) PO SCH (06:53)
[2021-10-19] MEDS: ALPRAZolam 1 MG TABLET PO PRN ×2 (09:05→21:30)
[2021-10-19] MEDS: FERROUS GLUCONATE 324 MG TAB (FP) PO SCH ×3 (09:16→18:07)
[2021-10-19] MEDS: AMINO ACIDS/PROTEIN HYDROLYS 30 ML LIQUID.PKT PO SCH ×2 (09:16→18:07)
[2021-10-19] MEDS: MULTIVITAMINS THER W-MINERALS COMBO TABLET (FP) PO SCH ×2 (09:16→09:23)
[2021-10-19] MEDS: ASCORBIC ACID 250 MG TABLET (FP) PO SCH (09:16)
[2021-10-19] MEDS: LIDOCAINE 5% TOPICAL PATCH TP SCH (09:16)
[2021-10-19] MEDS: PANTOPRAZOLE 40 MG TABLET PO SCH (09:16)
[2021-10-19] MEDS: HEPARIN - 25,000 UNIT in SODIUM CHLORIDE 495 ML IV SCH ×2 (13:39→17:35)
[2021-10-19] MEDS ORDERED: ALBUTEROL SO4 2.5/IPRATROPIUM 0.5 INH SOL 3 ML VIAL.NEB. NEB PRN (16:31)
[2021-10-19 17:20] LABS: HEMATOCRIT 27.8 % (32.4-45.2); HEMOGLOBIN 8.5 GM/dL (10.7-15.3); MCH 21.3 pg (25.7-33.7); MCHC 30.7 g/dl (32.0-36.0); MEAN CELL VOLUME 69.3 fl (80-96); RBC 4.01 M/mm3 (3.60-5.2); RDW 26.8 % (11.6-15.6); WHITE BLOOD COUNT 4.8 K/mm3 (4.0-10.0)
[2021-10-19 17:22] LABS: ADD RBC MORPHOLOGY YES
[2021-10-19 17:32] LABS: CHLORIDE 104 mmol/L (98-107); SODIUM 142 mmol/L (136-145)
[2021-10-19 17:34] LABS: ALBUMIN 2.2 g/dl (3.4-5.0); CALCIUM 7.9 mg/dL (8.5-10.1); CO2 32 mmol/L (21-32); GLUCOSE,RANDOM 95 mg/dL (74-106); MAGNESIUM 1.9 mg/dL (1.8-2.4)
[2021-10-19 17:37] LABS: CREATININE 0.6 mg/dL (0.55-1.3); SGOT/AST 21 U/L (15-37); SGPT/ALT 27 U/L (13-61)
[2021-10-19 17:39] LABS: BILIRUBIN,TOTAL 0.3 mg/dL (0.2-1); TOT PROT 6.6 g/dl (6.4-8.2)
[2021-10-19 17:40] LABS: ALK PHOS 94 U/L (45-117)
[2021-10-19 17:46] LABS: ANION GAP 7 MMOL/L (8-16)
[2021-10-19 18:27] LABS: ANISOCYTOSIS 3+; MACROCYTOSIS 0; OVALOCYTE 1+; PLATELET ESTIMATE NORMAL
[2021-10-19] MEDS ORDERED: POTASSIUM CHLORIDE ORAL LIQUID 20 MEQ/15 ML PO ONE (18:39)
[2021-10-19] MEDS: APIXABAN 5 MG TABLET PO SCH (21:29)
[2021-10-19] MEDS: ATORVASTATIN CA 40 MG TABLET (FP) PO SCH (21:30)
[2021-10-20] MEDS ORDERED: methaDONE HCL 40 MG DISPERSABLE TABLET ONE (05:04)
[2021-10-20] MEDS ORDERED: methaDONE HCL 10 MG TABLET ONE (05:05)
[2021-10-20] MEDS: LEVOTHYROXINE NA 125 MCG TABLET (FP) PO SCH (06:10)
[2021-10-20 06:56] LABS: BASO % 1.7 % (0-2.0); EOS % 0.2 % (0-4.5); HEMATOCRIT 33.1 % (32.4-45.2); HEMOGLOBIN 9.9 GM/dL (10.7-15.3); MCH 21.1 pg (25.7-33.7); MCHC 29.8 g/dl (32.0-36.0); MEAN CELL VOLUME 70.7 fl (80-96); MEAN PLT VOLUME 8.3 fl (7.5-11.1); MONO % 6.5 % (3.8-10.2); NEUT % 84.6 % (42.8-82.8); PLATELET COUNT 192 10^3/uL (134-434); RBC 4.68 M/mm3 (3.60-5.2); RDW 26.9 % (11.6-15.6); WHITE BLOOD COUNT 8.3 K/mm3 (4.0-10.0)
[2021-10-20 07:20] LABS: ALBUMIN 2.5 g/dl (3.4-5.0); BLOOD UREA NITROGEN 8.9 mg/dL (7-18); MAGNESIUM 1.8 mg/dL (1.8-2.4)
[2021-10-20 07:23] LABS: CREATININE 0.6 mg/dL (0.55-1.3); PHOSPHOROUS 3.8 mg/dL (2.5-4.9)
[2021-10-20 07:25] LABS: BILIRUBIN,TOTAL 0.4 mg/dL (0.2-1)
[2021-10-20] MEDS: KCL 10 MEQ IVPB 10 MEQ/100 ML INFUS.BAG IVPB SCH ×2 (08:58→11:18)
[2021-10-20] MEDS: ALPRAZolam 1 MG TABLET PO PRN ×2 (09:00→20:49)
[2021-10-20] MEDS: MULTIVITAMINS THER W-MINERALS COMBO TABLET (FP) PO SCH (09:42)
[2021-10-20] MEDS: FERROUS GLUCONATE 324 MG TAB (FP) PO SCH ×3 (09:42→16:56)
[2021-10-20] MEDS: PANTOPRAZOLE 40 MG TABLET PO SCH (09:42)
[2021-10-20] MEDS: LIDOCAINE 5% TOPICAL PATCH TP SCH (09:42)
[2021-10-20] MEDS: ASCORBIC ACID 250 MG TABLET (FP) PO SCH (09:43)
[2021-10-20] MEDS: APIXABAN 5 MG TABLET PO SCH ×2 (09:43→23:53)
[2021-10-20] MEDS: AMINO ACIDS/PROTEIN HYDROLYS 30 ML LIQUID.PKT PO SCH ×2 (09:43→16:56)
[2021-10-20] MEDS ORDERED: POTASSIUM CHLORIDE TABS 20 MEQ TABLET.ER (FP) PO ONE (10:28)
[2021-10-20] MEDS ORDERED: ACETAMINOPHEN 1000 MG/100 ML BAG IVPB PRN (16:26)
[2021-10-20] MEDS: ACETAMINOPHEN 500 MG TABLET (FP) PO PRN (18:52)
[2021-10-20] MEDS: LIDOCAINE PATCH REMOVAL MC SCH (23:53)
[2021-10-20] MEDS: ATORVASTATIN CA 40 MG TABLET (FP) PO SCH (23:53)
[2021-10-21] MEDS ORDERED: methaDONE HCL 40 MG DISPERSABLE TABLET ONE (05:04)
[2021-10-21] MEDS ORDERED: methaDONE HCL 10 MG TABLET ONE (05:05)
[2021-10-21 05:49] LABS: BASO % 0.2 % (0-2.0); EOS % 0.4 % (0-4.5); HEMATOCRIT 33.8 % (32.4-45.2); HEMOGLOBIN 10.2 GM/dL (10.7-15.3); LYMPH % 22.9 % (8-40); MCH 21.3 pg (25.7-33.7); MCHC 30.2 g/dl (32.0-36.0); MEAN CELL VOLUME 70.4 fl (80-96); MONO % 10.3 % (3.8-10.2); NEUT % 66.2 % (42.8-82.8); RDW 27.9 % (11.6-15.6); WHITE BLOOD COUNT 6.4 K/mm3 (4.0-10.0)
[2021-10-21 06:12] LABS: ALBUMIN 2.5 g/dl (3.4-5.0); BLOOD UREA NITROGEN 11.9 mg/dL (7-18); CALCIUM 8.4 mg/dL (8.5-10.1); MAGNESIUM 1.8 mg/dL (1.8-2.4)
[2021-10-21] MEDS ORDERED: TRIMETHOBENZAMIDE HCL 200MG/2ML INJ IM ONE (06:12)
[2021-10-21 06:15] LABS: CREATININE 0.6 mg/dL (0.55-1.3); PHOSPHOROUS 3.5 mg/dL (2.5-4.9)
[2021-10-21 06:17] LABS: BILIRUBIN,TOTAL 0.4 mg/dL (0.2-1); TOT PROT 7.3 g/dl (6.4-8.2)
[2021-10-21] MEDS: LEVOTHYROXINE NA 125 MCG TABLET (FP) PO SCH (06:50)
[2021-10-21] MEDS: ALPRAZolam 1 MG TABLET PO PRN ×2 (08:37→20:05)
[2021-10-21] MEDS: ASCORBIC ACID 250 MG TABLET (FP) PO SCH (09:43)
[2021-10-21] MEDS: APIXABAN 5 MG TABLET PO SCH ×2 (09:43→21:25)
[2021-10-21] MEDS: PANTOPRAZOLE 40 MG TABLET PO SCH (09:43)
[2021-10-21] MEDS: LIDOCAINE 5% TOPICAL PATCH TP SCH (09:43)
[2021-10-21] MEDS: FERROUS GLUCONATE 324 MG TAB (FP) PO SCH ×3 (09:43→16:48)
[2021-10-21] MEDS: MULTIVITAMINS THER W-MINERALS COMBO TABLET (FP) PO SCH (09:43)
[2021-10-21] MEDS: AMINO ACIDS/PROTEIN HYDROLYS 30 ML LIQUID.PKT PO SCH ×2 (09:44→16:48)
[2021-10-21] MEDS: ACETAMINOPHEN 500 MG TABLET (FP) PO PRN (21:26)
[2021-10-21] MEDS: ATORVASTATIN CA 40 MG TABLET (FP) PO SCH (21:26)
[2021-10-21] MEDS: LIDOCAINE PATCH REMOVAL MC SCH (21:38)
[2021-10-22] MEDS ORDERED: methaDONE HCL 10 MG TABLET ONE ×2 (05:38→05:49)
[2021-10-22] MEDS ORDERED: methaDONE HCL 40 MG DISPERSABLE TABLET ONE ×2 (05:38→05:49)
[2021-10-22] MEDS: LEVOTHYROXINE NA 125 MCG TABLET (FP) PO SCH (06:43)
[2021-10-22 07:05] LABS: BASO % 0.7 % (0-2.0); EOS % 1.4 % (0-4.5); HEMATOCRIT 33.5 % (32.4-45.2); LYMPH % 24.9 % (8-40); MCH 21.5 pg (25.7-33.7); MCHC 29.9 g/dl (32.0-36.0); MEAN CELL VOLUME 71.7 fl (80-96); MONO % 9.8 % (3.8-10.2); NEUT % 63.2 % (42.8-82.8); RBC 4.67 M/mm3 (3.60-5.2); RDW 28.3 % (11.6-15.6); WHITE BLOOD COUNT 6.5 K/mm3 (4.0-10.0)
[2021-10-22] MEDS ORDERED: POTASSIUM CHLORIDE TABS 20 MEQ TABLET.ER (FP) PO ONE (07:11)
[2021-10-22 07:27] LABS: CALCIUM 8.2 mg/dL (8.5-10.1)
[2021-10-22 07:28] LABS: ALBUMIN 2.3 g/dl (3.4-5.0); BLOOD UREA NITROGEN 12.7 mg/dL (7-18); MAGNESIUM 2.1 mg/dL (1.8-2.4); PHOSPHOROUS 4.1 mg/dL (2.5-4.9)
[2021-10-22 07:29] LABS: BILIRUBIN,TOTAL 0.4 mg/dL (0.2-1)
[2021-10-22 07:31] LABS: CREATININE 0.7 mg/dL (0.55-1.3)
[2021-10-22 08:22] LABS: ANISOCYTOSIS 3+; MACROCYTOSIS 0; PLATELET ESTIMATE DECREASED
[2021-10-22] MEDS: AMINO ACIDS/PROTEIN HYDROLYS 30 ML LIQUID.PKT PO SCH ×2 (08:27→17:14)
[2021-10-22] MEDS: FERROUS GLUCONATE 324 MG TAB (FP) PO SCH ×3 (08:27→17:14)
[2021-10-22] MEDS: ALPRAZolam 1 MG TABLET PO PRN ×2 (08:50→20:13)
[2021-10-22] MEDS: ASCORBIC ACID 250 MG TABLET (FP) PO SCH (10:21)
[2021-10-22] MEDS: APIXABAN 5 MG TABLET PO SCH ×2 (10:21→23:40)
[2021-10-22] MEDS: PANTOPRAZOLE 40 MG TABLET PO SCH (10:21)
[2021-10-22] MEDS: MULTIVITAMINS THER W-MINERALS COMBO TABLET (FP) PO SCH (10:22)
[2021-10-22] MEDS: LIDOCAINE 5% TOPICAL PATCH TP SCH (10:23)
[2021-10-22] MEDS: ACETAMINOPHEN 500 MG TABLET (FP) PO PRN ×2 (14:24→23:56)
[2021-10-22] MEDS: ATORVASTATIN CA 40 MG TABLET (FP) PO SCH (23:40)
[2021-10-22] MEDS: LIDOCAINE PATCH REMOVAL MC SCH (23:41)
[2021-10-23] MEDS ORDERED: methaDONE HCL 40 MG DISPERSABLE TABLET ONE (05:22)
[2021-10-23] MEDS ORDERED: methaDONE HCL 10 MG TABLET ONE (05:22)
[2021-10-23] MEDS: LEVOTHYROXINE NA 125 MCG TABLET (FP) PO SCH (06:55)
[2021-10-23] MEDS: PANTOPRAZOLE 40 MG TABLET PO SCH (09:14)
[2021-10-23] MEDS: AMINO ACIDS/PROTEIN HYDROLYS 30 ML LIQUID.PKT PO SCH ×2 (09:14→17:13)
[2021-10-23] MEDS: APIXABAN 5 MG TABLET PO SCH ×2 (09:14→21:05)
[2021-10-23] MEDS: MULTIVITAMINS THER W-MINERALS COMBO TABLET (FP) PO SCH (09:14)
[2021-10-23] MEDS: FERROUS GLUCONATE 324 MG TAB (FP) PO SCH ×3 (09:14→17:13)
[2021-10-23] MEDS: ASCORBIC ACID 250 MG TABLET (FP) PO SCH (09:14)
[2021-10-23] MEDS: LIDOCAINE 5% TOPICAL PATCH TP SCH (09:15)
[2021-10-23] MEDS: ALPRAZolam 1 MG TABLET PO PRN ×2 (09:15→21:04)
[2021-10-23] MEDS ORDERED: PT OWN MED DRAWER 7, Y5N ONE ×2 (11:55→12:28)
[2021-10-23] MEDS ORDERED: IRON SUCROSE INJECTION 200 MG in SODIUM CHLORIDE 90 ML IVPB ONE (12:00)
[2021-10-23] MEDS: ACETAMINOPHEN 500 MG TABLET (FP) PO PRN ×2 (13:10→21:05)
[2021-10-23] MEDS: LIDOCAINE PATCH REMOVAL MC SCH (21:05)
[2021-10-23] MEDS: ATORVASTATIN CA 40 MG TABLET (FP) PO SCH (21:05)
[2021-10-24] MEDS ORDERED: methaDONE HCL 40 MG DISPERSABLE TABLET ONE (04:45)
[2021-10-24] MEDS ORDERED: methaDONE HCL 10 MG TABLET ONE (04:46)
[2021-10-24] MEDS: LEVOTHYROXINE NA 125 MCG TABLET (FP) PO SCH (06:19)
[2021-10-24] MEDS: FERROUS GLUCONATE 324 MG TAB (FP) PO SCH ×3 (08:00→17:01)
[2021-10-24] MEDS: ALPRAZolam 1 MG TABLET PO PRN ×2 (08:44→21:09)
[2021-10-24] MEDS: AMINO ACIDS/PROTEIN HYDROLYS 30 ML LIQUID.PKT PO SCH ×2 (08:44→17:01)
[2021-10-24] MEDS: APIXABAN 5 MG TABLET PO SCH ×2 (10:38→21:08)
[2021-10-24] MEDS: MULTIVITAMINS THER W-MINERALS COMBO TABLET (FP) PO SCH (10:38)
[2021-10-24] MEDS: LIDOCAINE 5% TOPICAL PATCH TP SCH (10:38)
[2021-10-24] MEDS: PANTOPRAZOLE 40 MG TABLET PO SCH (10:38)
[2021-10-24] MEDS: ASCORBIC ACID 250 MG TABLET (FP) PO SCH (10:38)
[2021-10-24] MEDS: ACETAMINOPHEN 500 MG TABLET (FP) PO PRN ×2 (14:41→21:17)
[2021-10-24] MEDS: ATORVASTATIN CA 40 MG TABLET (FP) PO SCH (21:10)
[2021-10-24] MEDS: LIDOCAINE PATCH REMOVAL MC SCH (21:10)
[2021-10-25] MEDS ORDERED: methaDONE HCL 40 MG DISPERSABLE TABLET ONE (05:01)
[2021-10-25] MEDS ORDERED: methaDONE HCL 10 MG TABLET ONE (05:01)
[2021-10-25] MEDS: LEVOTHYROXINE NA 125 MCG TABLET (FP) PO SCH (06:31)
[2021-10-25 08:42] LABS: BASO % 0.4 % (0-2.0); EOS % 0.6 % (0-4.5); HEMATOCRIT 31.5 % (32.4-45.2); HEMOGLOBIN 9.5 GM/dL (10.7-15.3); LYMPH % 18.6 % (8-40); MCH 21.9 pg (25.7-33.7); MCHC 30.2 g/dl (32.0-36.0); MEAN CELL VOLUME 72.5 fl (80-96); MONO % 10.1 % (3.8-10.2); NEUT % 70.3 % (42.8-82.8); RBC 4.35 M/mm3 (3.60-5.2); RDW 29.4 % (11.6-15.6); WHITE BLOOD COUNT 6.2 K/mm3 (4.0-10.0)
[2021-10-25 09:00] LABS: CREATININE 0.6 mg/dL (0.55-1.3)
[2021-10-25 09:02] LABS: ALBUMIN 2.6 g/dl (3.4-5.0)
[2021-10-25 09:03] LABS: BILIRUBIN,TOTAL 0.3 mg/dL (0.2-1); BLOOD UREA NITROGEN 11.6 mg/dL (7-18); CALCIUM 8.1 mg/dL (8.5-10.1); MAGNESIUM 2.1 mg/dL (1.8-2.4); TOT PROT 6.8 g/dl (6.4-8.2)
[2021-10-25 09:05] LABS: PHOSPHOROUS 4.4 mg/dL (2.5-4.9)
[2021-10-25 09:31] LABS: ANISOCYTOSIS 1+; MACROCYTOSIS 0; PLATELET ESTIMATE DECREASED
[2021-10-25] MEDS: AMINO ACIDS/PROTEIN HYDROLYS 30 ML LIQUID.PKT PO SCH ×2 (10:12→16:39)
[2021-10-25] MEDS: PANTOPRAZOLE 40 MG TABLET PO SCH (10:13)
[2021-10-25] MEDS: ASCORBIC ACID 250 MG TABLET (FP) PO SCH (10:13)
[2021-10-25] MEDS: MULTIVITAMINS THER W-MINERALS COMBO TABLET (FP) PO SCH (10:13)
[2021-10-25] MEDS: FERROUS GLUCONATE 324 MG TAB (FP) PO SCH ×3 (10:13→16:39)
[2021-10-25] MEDS: ALPRAZolam 1 MG TABLET PO PRN ×2 (10:13→21:51)
[2021-10-25] MEDS: APIXABAN 5 MG TABLET PO SCH ×2 (10:13→21:51)
[2021-10-25] MEDS: LIDOCAINE 5% TOPICAL PATCH TP SCH (10:14)
[2021-10-25] MEDS: ACETAMINOPHEN 500 MG TABLET (FP) PO PRN (16:55)
[2021-10-25 17:08] LABS: GLIADIN ANTIBODY IGA 8 units (0-19); GLIADIN ANTIBODY IGG 2 units (0-19); TRANSGLUTAMINASE IGG < 2 U/mL (0-5)
[2021-10-25] MEDS: LIDOCAINE PATCH REMOVAL MC SCH (21:51)
[2021-10-25] MEDS: ATORVASTATIN CA 40 MG TABLET (FP) PO SCH (21:51)
[2021-10-26] MEDS ORDERED: methaDONE HCL 10 MG TABLET ONE (04:58)
[2021-10-26] MEDS ORDERED: methaDONE HCL 40 MG DISPERSABLE TABLET ONE (04:58)
[2021-10-26] MEDS: LEVOTHYROXINE NA 125 MCG TABLET (FP) PO SCH (06:22)
[2021-10-26 07:48] LABS: BASO % 1.2 % (0-2.0); EOS % 1.2 % (0-4.5); HEMATOCRIT 30.6 % (32.4-45.2); HEMOGLOBIN 9.5 GM/dL (10.7-15.3); LYMPH % 23.2 % (8-40); MCH 22.5 pg (25.7-33.7); MCHC 31.1 g/dl (32.0-36.0); MEAN CELL VOLUME 72.5 fl (80-96); MEAN PLT VOLUME 8.4 fl (7.5-11.1); MONO % 8.6 % (3.8-10.2); NEUT % 65.8 % (42.8-82.8); PLATELET COUNT 144 10^3/uL (134-434); RBC 4.23 M/mm3 (3.60-5.2); RDW 29.7 % (11.6-15.6); WHITE BLOOD COUNT 5.2 K/mm3 (4.0-10.0)
[2021-10-26 08:43] LABS: ALBUMIN 2.5 g/dl (3.4-5.0); BLOOD UREA NITROGEN 13.5 mg/dL (7-18); MAGNESIUM 2.2 mg/dL (1.8-2.4)
[2021-10-26 08:47] LABS: CREATININE 0.7 mg/dL (0.55-1.3); PHOSPHOROUS 4.7 mg/dL (2.5-4.9)
[2021-10-26 08:48] LABS: BILIRUBIN,TOTAL 0.3 mg/dL (0.2-1); TOT PROT 6.6 g/dl (6.4-8.2)
[2021-10-26] MEDS: LIDOCAINE 5% TOPICAL PATCH TP SCH (09:27)
[2021-10-26] MEDS: PANTOPRAZOLE 40 MG TABLET PO SCH (09:27)
[2021-10-26] MEDS: APIXABAN 5 MG TABLET PO SCH ×2 (09:27→21:09)
[2021-10-26] MEDS: MULTIVITAMINS THER W-MINERALS COMBO TABLET (FP) PO SCH (09:27)
[2021-10-26] MEDS: ASCORBIC ACID 250 MG TABLET (FP) PO SCH (09:27)
[2021-10-26] MEDS: AMINO ACIDS/PROTEIN HYDROLYS 30 ML LIQUID.PKT PO SCH ×2 (09:27→17:07)
[2021-10-26] MEDS: FERROUS GLUCONATE 324 MG TAB (FP) PO SCH ×3 (09:27→17:07)
[2021-10-26] MEDS: ALPRAZolam 1 MG TABLET PO PRN ×2 (09:28→21:09)
[2021-10-26] MEDS ORDERED: PT OWN MED DRAWER 7, Y5N ONE (09:55)
[2021-10-26] MEDS: ACETAMINOPHEN 500 MG TABLET (FP) PO PRN (17:09)
[2021-10-26] MEDS: LIDOCAINE PATCH REMOVAL MC SCH (21:09)
[2021-10-26] MEDS: ATORVASTATIN CA 40 MG TABLET (FP) PO SCH (21:09)
[2021-10-27] MEDS ORDERED: methaDONE HCL 40 MG DISPERSABLE TABLET ONE (05:02)
[2021-10-27] MEDS ORDERED: methaDONE HCL 10 MG TABLET ONE (05:02)
[2021-10-27] MEDS: LEVOTHYROXINE NA 125 MCG TABLET (FP) PO SCH (06:15)
[2021-10-27 08:37] LABS: BASO % 0.6 % (0-2.0); EOS % 1.4 % (0-4.5); HEMATOCRIT 32.6 % (32.4-45.2); HEMOGLOBIN 9.8 GM/dL (10.7-15.3); LYMPH % 19.3 % (8-40); MCH 22.1 pg (25.7-33.7); MCHC 30.1 g/dl (32.0-36.0); MEAN CELL VOLUME 73.4 fl (80-96); MEAN PLT VOLUME 8.5 fl (7.5-11.1); MONO % 6.6 % (3.8-10.2); NEUT % 72.1 % (42.8-82.8); RBC 4.44 M/mm3 (3.60-5.2); RDW 30.3 % (11.6-15.6)
[2021-10-27 08:45] LABS: WHITE BLOOD COUNT 8.6 K/mm3 (4.0-10.0)
[2021-10-27 08:59] LABS: CALCIUM 8.2 mg/dL (8.5-10.1)
[2021-10-27 09:01] LABS: ALBUMIN 2.4 g/dl (3.4-5.0); BLOOD UREA NITROGEN 16.1 mg/dL (7-18); MAGNESIUM 2.2 mg/dL (1.8-2.4)
[2021-10-27 09:04] LABS: CREATININE 0.7 mg/dL (0.55-1.3); PHOSPHOROUS 4.9 mg/dL (2.5-4.9); TOT PROT 6.6 g/dl (6.4-8.2)
[2021-10-27 09:05] LABS: BILIRUBIN,TOTAL 0.4 mg/dL (0.2-1)
[2021-10-27] MEDS: FERROUS GLUCONATE 324 MG TAB (FP) PO SCH ×3 (09:25→17:22)
[2021-10-27 09:41] LABS: PLATELET ESTIMATE DECREASED
[2021-10-27] MEDS: ASCORBIC ACID 250 MG TABLET (FP) PO SCH (10:01)
[2021-10-27] MEDS: PANTOPRAZOLE 40 MG TABLET PO SCH (10:01)
[2021-10-27] MEDS: MULTIVITAMINS THER W-MINERALS COMBO TABLET (FP) PO SCH (10:01)
[2021-10-27] MEDS: AMINO ACIDS/PROTEIN HYDROLYS 30 ML LIQUID.PKT PO SCH ×2 (10:01→17:22)
[2021-10-27] MEDS: APIXABAN 5 MG TABLET PO SCH ×2 (10:01→21:16)
[2021-10-27] MEDS: ALPRAZolam 1 MG TABLET PO PRN ×2 (10:02→21:14)
[2021-10-27] MEDS: LIDOCAINE 5% TOPICAL PATCH TP SCH (10:02)
[2021-10-27] MEDS: ATORVASTATIN CA 40 MG TABLET (FP) PO SCH (21:12)
[2021-10-27] MEDS: ACETAMINOPHEN 500 MG TABLET (FP) PO PRN (21:13)
[2021-10-28] MEDS ORDERED: methaDONE HCL 10 MG TABLET ONE (05:29)
[2021-10-28] MEDS ORDERED: methaDONE HCL 40 MG DISPERSABLE TABLET ONE (05:29)
[2021-10-28] MEDS: LIDOCAINE PATCH REMOVAL MC SCH ×2 (06:20→21:42)
[2021-10-28] MEDS: LEVOTHYROXINE NA 125 MCG TABLET (FP) PO SCH (07:50)
[2021-10-28 08:10] LABS: BASO % 0.4 % (0-2.0); EOS % 2.3 % (0-4.5); HEMATOCRIT 32.1 % (32.4-45.2); HEMOGLOBIN 9.7 GM/dL (10.7-15.3); LYMPH % 20.3 % (8-40); MCH 21.9 pg (25.7-33.7); MCHC 30.2 g/dl (32.0-36.0); MEAN CELL VOLUME 72.6 fl (80-96); MONO % 6.9 % (3.8-10.2); NEUT % 70.1 % (42.8-82.8); RBC 4.43 M/mm3 (3.60-5.2); RDW 30.3 % (11.6-15.6); WHITE BLOOD COUNT 8.6 K/mm3 (4.0-10.0)
[2021-10-28 08:11] LABS: BLOOD UREA NITROGEN 15.8 mg/dL (7-18); CALCIUM 8.5 mg/dL (8.5-10.1)
[2021-10-28 08:12] LABS: ALBUMIN 2.3 g/dl (3.4-5.0); MAGNESIUM 2.1 mg/dL (1.8-2.4)
[2021-10-28 08:14] LABS: MEAN PLT VOLUME 8.5 fl (7.5-11.1)
[2021-10-28 08:15] LABS: CREATININE 0.6 mg/dL (0.55-1.3); PHOSPHOROUS 4.7 mg/dL (2.5-4.9)
[2021-10-28 08:16] LABS: BILIRUBIN,TOTAL 0.4 mg/dL (0.2-1); TOT PROT 6.9 g/dl (6.4-8.2)
[2021-10-28] MEDS: MULTIVITAMINS THER W-MINERALS COMBO TABLET (FP) PO SCH (09:10)
[2021-10-28] MEDS: ALPRAZolam 1 MG TABLET PO PRN ×2 (09:10→21:20)
[2021-10-28] MEDS: APIXABAN 5 MG TABLET PO SCH ×2 (09:10→21:42)
[2021-10-28] MEDS: LIDOCAINE 5% TOPICAL PATCH TP SCH (09:11)
[2021-10-28] MEDS: ASCORBIC ACID 250 MG TABLET (FP) PO SCH (09:11)
[2021-10-28] MEDS: FERROUS GLUCONATE 324 MG TAB (FP) PO SCH ×3 (09:11→17:06)
[2021-10-28] MEDS: PANTOPRAZOLE 40 MG TABLET PO SCH (09:11)
[2021-10-28] MEDS: AMINO ACIDS/PROTEIN HYDROLYS 30 ML LIQUID.PKT PO SCH ×2 (09:11→17:06)
[2021-10-28 11:18] LABS: ANISOCYTOSIS 2+; MACROCYTOSIS 0; PLATELET ESTIMATE DECREASED
[2021-10-28] MEDS: ATORVASTATIN CA 40 MG TABLET (FP) PO SCH (21:42)
[2021-10-29] MEDS ORDERED: methaDONE HCL 40 MG DISPERSABLE TABLET ONE (05:00)
[2021-10-29] MEDS ORDERED: methaDONE HCL 10 MG TABLET ONE (05:01)
[2021-10-29] MEDS: LEVOTHYROXINE NA 125 MCG TABLET (FP) PO SCH (06:01)
[2021-10-29 08:24] LABS: BASO % 0.4 % (0-2.0); EOS % 1.4 % (0-4.5); HEMOGLOBIN 9.7 GM/dL (10.7-15.3); LYMPH % 13.1 % (8-40); MCH 22.3 pg (25.7-33.7); MCHC 30.1 g/dl (32.0-36.0); MEAN CELL VOLUME 73.9 fl (80-96); MONO % 7.6 % (3.8-10.2); NEUT % 77.5 % (42.8-82.8); RBC 4.33 M/mm3 (3.60-5.2); RDW 30.4 % (11.6-15.6); WHITE BLOOD COUNT 9.5 K/mm3 (4.0-10.0)
[2021-10-29 08:55] LABS: CALCIUM 8.5 mg/dL (8.5-10.1)
[2021-10-29 08:56] LABS: ALBUMIN 2.3 g/dl (3.4-5.0); BLOOD UREA NITROGEN 13.6 mg/dL (7-18)
[2021-10-29 08:59] LABS: CREATININE 0.7 mg/dL (0.55-1.3); PHOSPHOROUS 5.3 mg/dL (2.5-4.9)
[2021-10-29 09:00] LABS: BILIRUBIN,TOTAL 0.4 mg/dL (0.2-1); TOT PROT 6.8 g/dl (6.4-8.2)
[2021-10-29] MEDS: LIDOCAINE 5% TOPICAL PATCH TP SCH (09:07)
[2021-10-29] MEDS: AMINO ACIDS/PROTEIN HYDROLYS 30 ML LIQUID.PKT PO SCH ×2 (09:07→18:23)
[2021-10-29] MEDS: ASCORBIC ACID 250 MG TABLET (FP) PO SCH (09:08)
[2021-10-29] MEDS: MULTIVITAMINS THER W-MINERALS COMBO TABLET (FP) PO SCH (09:08)
[2021-10-29] MEDS: FERROUS GLUCONATE 324 MG TAB (FP) PO SCH ×3 (09:08→18:23)
[2021-10-29] MEDS: APIXABAN 5 MG TABLET PO SCH ×2 (09:08→21:42)
[2021-10-29] MEDS: PANTOPRAZOLE 40 MG TABLET PO SCH (09:08)
[2021-10-29] MEDS: ALPRAZolam 1 MG TABLET PO PRN ×2 (09:09→20:13)
[2021-10-29] MEDS: ATORVASTATIN CA 40 MG TABLET (FP) PO SCH (21:42)
[2021-10-29] MEDS: LIDOCAINE PATCH REMOVAL MC SCH (21:42)
[2021-10-30] MEDS ORDERED: methaDONE HCL 10 MG TABLET ONE (05:00)
[2021-10-30] MEDS ORDERED: methaDONE HCL 40 MG DISPERSABLE TABLET ONE (05:00)
[2021-10-30] MEDS: LEVOTHYROXINE NA 125 MCG TABLET (FP) PO SCH (06:22)
[2021-10-30] MEDS: PANTOPRAZOLE 40 MG TABLET PO SCH (09:22)
[2021-10-30] MEDS: MULTIVITAMINS THER W-MINERALS COMBO TABLET (FP) PO SCH (09:22)
[2021-10-30] MEDS: ALPRAZolam 1 MG TABLET PO PRN ×2 (09:22→19:58)
[2021-10-30] MEDS: AMINO ACIDS/PROTEIN HYDROLYS 30 ML LIQUID.PKT PO SCH ×2 (09:22→18:42)
[2021-10-30] MEDS: FERROUS GLUCONATE 324 MG TAB (FP) PO SCH ×3 (09:23→18:42)
[2021-10-30] MEDS: APIXABAN 5 MG TABLET PO SCH ×2 (09:23→21:36)
[2021-10-30] MEDS: LIDOCAINE 5% TOPICAL PATCH TP SCH (09:24)
[2021-10-30] MEDS: ASCORBIC ACID 250 MG TABLET (FP) PO SCH (12:20)
[2021-10-30 13:13] LABS: HEMATOCRIT 30.6 % (32.4-45.2); HEMOGLOBIN 9.2 GM/dL (10.7-15.3); MCH 22.3 pg (25.7-33.7); MCHC 30.2 g/dl (32.0-36.0); MEAN CELL VOLUME 73.8 fl (80-96); RBC 4.15 M/mm3 (3.60-5.2); RDW 31.1 % (11.6-15.6); WHITE BLOOD COUNT 9.8 K/mm3 (4.0-10.0)
[2021-10-30 13:49] LABS: ALBUMIN 2.5 g/dl (3.4-5.0); BLOOD UREA NITROGEN 12.5 mg/dL (7-18)
[2021-10-30 13:50] LABS: CALCIUM 8.6 mg/dL (8.5-10.1); MAGNESIUM 2.2 mg/dL (1.8-2.4)
[2021-10-30 13:52] LABS: CREATININE 0.6 mg/dL (0.55-1.3)
[2021-10-30 13:53] LABS: TOT PROT 6.8 g/dl (6.4-8.2)
[2021-10-30 13:54] LABS: BILIRUBIN,TOTAL 0.4 mg/dL (0.2-1)
[2021-10-30 14:29] LABS: ANISOCYTOSIS 3+; MACROCYTOSIS 1+; OVALOCYTE 2+
[2021-10-30] MEDS ORDERED: DEXAMETHASONE SOD PHOSPHATE 10 MG/1 ML VIAL IVPUSH SCH (17:15)
[2021-10-30] MEDS ORDERED: DEXAMETHASONE 4 MG TABLET (FP) PO ONE (20:28)
[2021-10-30] MEDS: DEXAMETHASONE SOD PHOSPHATE 4 MG/1 ML VIAL IVPUSH SCH (20:34)
[2021-10-30] MEDS: LIDOCAINE PATCH REMOVAL MC SCH (21:36)
[2021-10-30] MEDS: ATORVASTATIN CA 40 MG TABLET (FP) PO SCH (21:36)
[2021-10-31] MEDS ORDERED: methaDONE HCL 40 MG DISPERSABLE TABLET ONE (05:06)
[2021-10-31] MEDS ORDERED: methaDONE HCL 10 MG TABLET ONE (05:07)
[2021-10-31] MEDS: LEVOTHYROXINE NA 125 MCG TABLET (FP) PO SCH (06:14)
[2021-10-31] MEDS ORDERED: PT OWN MED DRAWER 7, Y5N ONE (08:55)
[2021-10-31] MEDS: PANTOPRAZOLE 40 MG TABLET PO SCH (09:01)
[2021-10-31] MEDS: ALPRAZolam 1 MG TABLET PO PRN ×2 (09:01→19:02)
[2021-10-31] MEDS: FERROUS GLUCONATE 324 MG TAB (FP) PO SCH ×3 (09:01→17:34)
[2021-10-31] MEDS: MULTIVITAMINS THER W-MINERALS COMBO TABLET (FP) PO SCH (09:01)
[2021-10-31] MEDS: AMINO ACIDS/PROTEIN HYDROLYS 30 ML LIQUID.PKT PO SCH ×2 (09:01→17:34)
[2021-10-31] MEDS: LIDOCAINE 5% TOPICAL PATCH TP SCH (09:02)
[2021-10-31] MEDS: ASCORBIC ACID 250 MG TABLET (FP) PO SCH (09:02)
[2021-10-31] MEDS: APIXABAN 5 MG TABLET PO SCH ×2 (09:04→22:09)
[2021-10-31] MEDS: DEXAMETHASONE SOD PHOSPHATE 4 MG/1 ML VIAL IVPUSH SCH ×3 (09:33→17:36)
[2021-10-31 13:30] LABS: BLOOD UREA NITROGEN 14.7 mg/dL (7-18); CALCIUM 9.3 mg/dL (8.5-10.1)
[2021-10-31 13:31] LABS: ALBUMIN 2.4 g/dl (3.4-5.0); MAGNESIUM 2.3 mg/dL (1.8-2.4)
[2021-10-31 13:34] LABS: BILIRUBIN,TOTAL 0.8 mg/dL (0.2-1); CREATININE 0.7 mg/dL (0.55-1.3); PHOSPHOROUS 4.7 mg/dL (2.5-4.9); TOT PROT 7.4 g/dl (6.4-8.2)
[2021-10-31 13:42] LABS: BASO % 0.3 % (0-2.0); HEMATOCRIT 32.6 % (32.4-45.2); HEMOGLOBIN 9.9 GM/dL (10.7-15.3); LYMPH % 5.2 % (8-40); MCH 22.6 pg (25.7-33.7); MCHC 30.4 g/dl (32.0-36.0); MEAN CELL VOLUME 74.3 fl (80-96); MEAN PLT VOLUME 8.2 fl (7.5-11.1); NEUT % 89.5 % (42.8-82.8); RBC 4.38 M/mm3 (3.60-5.2); RDW 30.4 % (11.6-15.6); WHITE BLOOD COUNT 11.4 K/mm3 (4.0-10.0)
[2021-10-31 14:07] LABS: PLATELET ESTIMATE DECREASED
[2021-10-31] MEDS ORDERED: REMDESIVIR 200 MG in SODIUM CHLORIDE 250 ML IVPB ONE (15:50)
[2021-10-31] MEDS: LIDOCAINE PATCH REMOVAL MC SCH (21:47)
[2021-10-31] MEDS: ATORVASTATIN CA 40 MG TABLET (FP) PO SCH (22:09)
[2021-11-01] MEDS ORDERED: methaDONE HCL 10 MG TABLET ONE (05:00)
[2021-11-01] MEDS ORDERED: methaDONE HCL 40 MG DISPERSABLE TABLET ONE (05:00)
[2021-11-01] MEDS: LEVOTHYROXINE NA 125 MCG TABLET (FP) PO SCH (06:08)
[2021-11-01] MEDS ORDERED: PT OWN MED DRAWER 7, Y5N ONE (09:34)
[2021-11-01] MEDS: ASCORBIC ACID 250 MG TABLET (FP) PO SCH (09:38)
[2021-11-01] MEDS: PANTOPRAZOLE 40 MG TABLET PO SCH (09:39)
[2021-11-01] MEDS: ALPRAZolam 1 MG TABLET PO PRN ×2 (09:39→20:58)
[2021-11-01] MEDS: MULTIVITAMINS THER W-MINERALS COMBO TABLET (FP) PO SCH (09:39)
[2021-11-01] MEDS: APIXABAN 5 MG TABLET PO SCH ×2 (09:39→21:19)
[2021-11-01] MEDS: DEXAMETHASONE SOD PHOSPHATE 4 MG/1 ML VIAL IVPUSH SCH (09:39)
[2021-11-01] MEDS: FERROUS GLUCONATE 324 MG TAB (FP) PO SCH ×3 (09:39→18:22)
[2021-11-01] MEDS: AMINO ACIDS/PROTEIN HYDROLYS 30 ML LIQUID.PKT PO SCH ×2 (09:39→18:22)
[2021-11-01] MEDS: LIDOCAINE 5% TOPICAL PATCH TP SCH (09:40)
[2021-11-01 14:50] LABS: HEMATOCRIT 32.2 % (32.4-45.2); HEMOGLOBIN 9.8 GM/dL (10.7-15.3); MCH 22.7 pg (25.7-33.7); MCHC 30.4 g/dl (32.0-36.0); MEAN CELL VOLUME 74.7 fl (80-96); RBC 4.31 M/mm3 (3.60-5.2); RDW 31.1 % (11.6-15.6); WHITE BLOOD COUNT 12.1 K/mm3 (4.0-10.0)
[2021-11-01 14:54] LABS: CALCIUM 9.3 mg/dL (8.5-10.1)
[2021-11-01 14:55] LABS: ALBUMIN 2.8 g/dl (3.4-5.0); BLOOD UREA NITROGEN 21.5 mg/dL (7-18); MAGNESIUM 2.2 mg/dL (1.8-2.4)
[2021-11-01 14:58] LABS: CREATININE 0.7 mg/dL (0.55-1.3); PHOSPHOROUS 5.1 mg/dL (2.5-4.9)
[2021-11-01 14:59] LABS: BILIRUBIN,TOTAL 0.4 mg/dL (0.2-1)
[2021-11-01 15:00] LABS: TOT PROT 7.5 g/dl (6.4-8.2)
[2021-11-01 15:40] LABS: ANISOCYTOSIS 2+; MACROCYTOSIS 0; PLATELET ESTIMATE SIGNIFICANT INCREASE; TARGET CELLS 2+; TEAR DROP CELLS 2+
[2021-11-01] MEDS ORDERED: REMDESIVIR 100 MG in SODIUM CHLORIDE 250 ML IVPB SCH (16:00)
[2021-11-01] MEDS: LIDOCAINE PATCH REMOVAL MC SCH (21:19)
[2021-11-01] MEDS: ATORVASTATIN CA 40 MG TABLET (FP) PO SCH (21:19)
[2021-11-01] MEDS: ACETAMINOPHEN 500 MG TABLET (FP) PO PRN (23:33)
[2021-11-02] MEDS ORDERED: methaDONE HCL 10 MG TABLET ONE (05:30)
[2021-11-02] MEDS ORDERED: methaDONE HCL 40 MG DISPERSABLE TABLET ONE (05:30)
[2021-11-02] MEDS: LEVOTHYROXINE NA 125 MCG TABLET (FP) PO SCH (06:14)
[2021-11-02] MEDS: FERROUS GLUCONATE 324 MG TAB (FP) PO SCH ×3 (08:56→17:53)
[2021-11-02] MEDS: AMINO ACIDS/PROTEIN HYDROLYS 30 ML LIQUID.PKT PO SCH ×2 (08:57→17:53)
[2021-11-02] MEDS: ALPRAZolam 1 MG TABLET PO PRN ×2 (08:57→21:09)
[2021-11-02 09:13] LABS: HEMATOCRIT 32.1 % (32.4-45.2); HEMOGLOBIN 9.9 GM/dL (10.7-15.3); MCH 22.8 pg (25.7-33.7); MCHC 30.7 g/dl (32.0-36.0); MEAN CELL VOLUME 74.1 fl (80-96); MEAN PLT VOLUME 8.1 fl (7.5-11.1); RBC 4.33 M/mm3 (3.60-5.2); RDW 30.1 % (11.6-15.6); WHITE BLOOD COUNT 12.9 K/mm3 (4.0-10.0)
[2021-11-02 09:28] LABS: CALCIUM 9.2 mg/dL (8.5-10.1)
[2021-11-02 09:29] LABS: ALBUMIN 2.7 g/dl (3.4-5.0); BLOOD UREA NITROGEN 19.6 mg/dL (7-18); MAGNESIUM 2.1 mg/dL (1.8-2.4)
[2021-11-02 09:32] LABS: CREATININE 0.7 mg/dL (0.55-1.3); PHOSPHOROUS 5.4 mg/dL (2.5-4.9)
[2021-11-02 09:33] LABS: TOT PROT 7.4 g/dl (6.4-8.2)
[2021-11-02 09:35] LABS: BILIRUBIN,TOTAL 0.4 mg/dL (0.2-1)
[2021-11-02] MEDS ORDERED: PT OWN MED DRAWER 7, Y5N ONE (09:49)
[2021-11-02] MEDS: MULTIVITAMINS THER W-MINERALS COMBO TABLET (FP) PO SCH (09:53)
[2021-11-02] MEDS: PANTOPRAZOLE 40 MG TABLET PO SCH (09:53)
[2021-11-02] MEDS: APIXABAN 5 MG TABLET PO SCH (09:53)
[2021-11-02] MEDS: ASCORBIC ACID 250 MG TABLET (FP) PO SCH (09:54)
[2021-11-02] MEDS: DEXAMETHASONE SOD PHOSPHATE 4 MG/1 ML VIAL IVPUSH SCH (09:54)
[2021-11-02] MEDS: LIDOCAINE 5% TOPICAL PATCH TP SCH (09:54)
[2021-11-02 10:32] LABS: ANISOCYTOSIS 3+; MACROCYTOSIS 0; PLATELET ESTIMATE DECREASED
[2021-11-02] MEDS: ACETAMINOPHEN 500 MG TABLET (FP) PO PRN (15:43)
[2021-11-02] MEDS: ATORVASTATIN CA 40 MG TABLET (FP) PO SCH (21:08)
[2021-11-02] MEDS: LIDOCAINE PATCH REMOVAL MC SCH (21:09)
[2021-11-03] MEDS ORDERED: methaDONE HCL 40 MG DISPERSABLE TABLET ONE (06:32)
[2021-11-03] MEDS ORDERED: methaDONE HCL 10 MG TABLET ONE (06:32)
[2021-11-03] MEDS: LEVOTHYROXINE NA 125 MCG TABLET (FP) PO SCH (06:39)
[2021-11-03] MEDS: DEXAMETHASONE SOD PHOSPHATE 4 MG/1 ML VIAL IVPUSH SCH (09:31)
[2021-11-03] MEDS: AMINO ACIDS/PROTEIN HYDROLYS 30 ML LIQUID.PKT PO SCH ×2 (09:31→17:09)
[2021-11-03] MEDS: FERROUS GLUCONATE 324 MG TAB (FP) PO SCH ×3 (09:32→17:09)
[2021-11-03] MEDS: MULTIVITAMINS THER W-MINERALS COMBO TABLET (FP) PO SCH (09:32)
[2021-11-03] MEDS: ASCORBIC ACID 250 MG TABLET (FP) PO SCH (09:32)
[2021-11-03] MEDS: PANTOPRAZOLE 40 MG TABLET PO SCH (09:32)
[2021-11-03] MEDS: ALPRAZolam 1 MG TABLET PO PRN ×2 (09:33→21:30)
[2021-11-03 09:49] LABS: HEMATOCRIT 33.3 % (32.4-45.2); HEMOGLOBIN 10.4 GM/dL (10.7-15.3); MCH 23.1 pg (25.7-33.7); MCHC 31.2 g/dl (32.0-36.0); RDW 30.4 % (11.6-15.6)
[2021-11-03] MEDS: LIDOCAINE 5% TOPICAL PATCH TP SCH (09:58)
[2021-11-03 10:14] LABS: ALBUMIN 2.7 g/dl (3.4-5.0)
[2021-11-03] MEDS: ACETAMINOPHEN 500 MG TABLET (FP) PO PRN ×2 (10:14→18:34)
[2021-11-03 10:17] LABS: CALCIUM 8.8 mg/dL (8.5-10.1)
[2021-11-03 10:18] LABS: BLOOD UREA NITROGEN 18.8 mg/dL (7-18); MAGNESIUM 2.1 mg/dL (1.8-2.4)
[2021-11-03 10:20] LABS: CREATININE 0.8 mg/dL (0.55-1.3); PHOSPHOROUS 4.8 mg/dL (2.5-4.9)
[2021-11-03 10:21] LABS: BILIRUBIN,TOTAL 0.7 mg/dL (0.2-1)
[2021-11-03 12:48] LABS: WHITE BLOOD COUNT 12.2 K/mm3 (4.0-10.0)
[2021-11-03] MEDS: ATORVASTATIN CA 40 MG TABLET (FP) PO SCH (21:29)
[2021-11-03] MEDS: LIDOCAINE PATCH REMOVAL MC SCH (21:34)
[2021-11-04] MEDS ORDERED: methaDONE HCL 10 MG TABLET ONE (05:12)
[2021-11-04] MEDS ORDERED: methaDONE HCL 40 MG DISPERSABLE TABLET ONE (05:12)
[2021-11-04] MEDS: LEVOTHYROXINE NA 125 MCG TABLET (FP) PO SCH (06:15)
[2021-11-04] MEDS: AMINO ACIDS/PROTEIN HYDROLYS 30 ML LIQUID.PKT PO SCH ×2 (08:29→17:48)
[2021-11-04] MEDS: FERROUS GLUCONATE 324 MG TAB (FP) PO SCH ×3 (08:30→17:48)
[2021-11-04] MEDS: ACETAMINOPHEN 500 MG TABLET (FP) PO PRN ×2 (08:30→16:45)
[2021-11-04] MEDS: PANTOPRAZOLE 40 MG TABLET PO SCH (09:17)
[2021-11-04] MEDS: MULTIVITAMINS THER W-MINERALS COMBO TABLET (FP) PO SCH (09:17)
[2021-11-04] MEDS: LIDOCAINE 5% TOPICAL PATCH TP SCH (09:17)
[2021-11-04] MEDS: ALPRAZolam 1 MG TABLET PO PRN (09:19)
[2021-11-04] MEDS: DEXAMETHASONE SOD PHOSPHATE 4 MG/1 ML VIAL IVPUSH SCH (09:19)
[2021-11-04] MEDS: ASCORBIC ACID 250 MG TABLET (FP) PO SCH (09:28)
[2021-11-04 17:42] LABS: BASO % 0.3 % (0-2.0); HEMATOCRIT 31.5 % (32.4-45.2); HEMOGLOBIN 9.7 GM/dL (10.7-15.3); LYMPH % 7.2 % (8-40); MEAN CELL VOLUME 74.2 fl (80-96); MEAN PLT VOLUME 8.5 fl (7.5-11.1); MONO % 2.7 % (3.8-10.2); NEUT % 89.8 % (42.8-82.8); PLATELET COUNT 85 10^3/uL (134-434); RBC 4.24 M/mm3 (3.60-5.2); RDW 30.1 % (11.6-15.6); WHITE BLOOD COUNT 10.7 K/mm3 (4.0-10.0)
[2021-11-04 18:07] LABS: ALBUMIN 2.7 g/dl (3.4-5.0); BLOOD UREA NITROGEN 21.2 mg/dL (7-18); CALCIUM 8.9 mg/dL (8.5-10.1)
[2021-11-04 18:08] LABS: MAGNESIUM 2.1 mg/dL (1.8-2.4)
[2021-11-04 18:10] LABS: PHOSPHOROUS 5.2 mg/dL (2.5-4.9)
[2021-11-04 18:11] LABS: CREATININE 0.9 mg/dL (0.55-1.3)
[2021-11-04 18:12] LABS: BILIRUBIN,TOTAL 0.3 mg/dL (0.2-1); TOT PROT 6.9 g/dl (6.4-8.2)
[2021-11-04] MEDS: APIXABAN 5 MG TABLET PO SCH (21:24)
[2021-11-04] MEDS: ATORVASTATIN CA 40 MG TABLET (FP) PO SCH (21:24)
[2021-11-04] MEDS: LIDOCAINE PATCH REMOVAL MC SCH (21:25)
[2021-11-05] MEDS: ACETAMINOPHEN 500 MG TABLET (FP) PO PRN ×3 (01:05→17:19)
[2021-11-05] MEDS ORDERED: methaDONE HCL 40 MG DISPERSABLE TABLET ONE (05:20)
[2021-11-05] MEDS ORDERED: methaDONE HCL 10 MG TABLET ONE (05:21)
[2021-11-05] MEDS: LEVOTHYROXINE NA 125 MCG TABLET (FP) PO SCH (06:03)
[2021-11-05] MEDS: PANTOPRAZOLE 40 MG TABLET PO SCH (09:04)
[2021-11-05] MEDS: LIDOCAINE 5% TOPICAL PATCH TP SCH (09:04)
[2021-11-05] MEDS: MULTIVITAMINS THER W-MINERALS COMBO TABLET (FP) PO SCH (09:04)
[2021-11-05] MEDS: AMINO ACIDS/PROTEIN HYDROLYS 30 ML LIQUID.PKT PO SCH ×2 (09:04→16:56)
[2021-11-05] MEDS: DEXAMETHASONE SOD PHOSPHATE 4 MG/1 ML VIAL IVPUSH SCH (09:04)
[2021-11-05] MEDS: FERROUS GLUCONATE 324 MG TAB (FP) PO SCH ×3 (09:05→16:56)
[2021-11-05] MEDS: APIXABAN 5 MG TABLET PO SCH ×2 (09:05→21:26)
[2021-11-05] MEDS: ASCORBIC ACID 250 MG TABLET (FP) PO SCH (09:05)
[2021-11-05] MEDS: ALPRAZolam 1 MG TABLET PO PRN ×2 (09:05→21:26)
[2021-11-05 12:43] LABS: BASO % 0.5 % (0-2.0); EOS % 0.7 % (0-4.5); HEMATOCRIT 34.4 % (32.4-45.2); HEMOGLOBIN 10.7 GM/dL (10.7-15.3); LYMPH % 6.7 % (8-40); MCH 23.4 pg (25.7-33.7); MCHC 31.2 g/dl (32.0-36.0); MEAN CELL VOLUME 75.1 fl (80-96); MONO % 3.5 % (3.8-10.2); NEUT % 88.6 % (42.8-82.8); RBC 4.58 M/mm3 (3.60-5.2); RDW 30.7 % (11.6-15.6); WHITE BLOOD COUNT 16.4 K/mm3 (4.0-10.0)
[2021-11-05 13:03] LABS: ALBUMIN 2.9 g/dl (3.4-5.0); BLOOD UREA NITROGEN 22.6 mg/dL (7-18); CALCIUM 8.9 mg/dL (8.5-10.1); MAGNESIUM 2.2 mg/dL (1.8-2.4)
[2021-11-05 13:06] LABS: PHOSPHOROUS 5.8 mg/dL (2.5-4.9)
[2021-11-05 13:07] LABS: CREATININE 0.8 mg/dL (0.55-1.3)
[2021-11-05 13:08] LABS: BILIRUBIN,TOTAL 0.4 mg/dL (0.2-1); TOT PROT 7.7 g/dl (6.4-8.2)
[2021-11-05 14:18] LABS: PLATELET ESTIMATE SIGNIFICANT INCREASE
[2021-11-05] MEDS: LIDOCAINE PATCH REMOVAL MC SCH (21:26)
[2021-11-05] MEDS: ATORVASTATIN CA 40 MG TABLET (FP) PO SCH (21:26)
[2021-11-05 21:49] LABS: CALCIUM 8.9 mg/dL (8.5-10.1)
[2021-11-05 21:50] LABS: BLOOD UREA NITROGEN 19.7 mg/dL (7-18)
[2021-11-05 21:53] LABS: CREATININE 0.8 mg/dL (0.55-1.3)
[2021-11-05] MEDS ORDERED: SODIUM ZIRCONIUM CYCLOSILICATE (LOKELMA) 5 GM PACKET PO SCH (23:30)
[2021-11-06] MEDS: ACETAMINOPHEN 500 MG TABLET (FP) PO PRN ×3 (01:24→22:13)
[2021-11-06] MEDS ORDERED: methaDONE HCL 40 MG DISPERSABLE TABLET ONE (06:01)
[2021-11-06] MEDS ORDERED: methaDONE HCL 10 MG TABLET ONE (06:02)
[2021-11-06] MEDS: LEVOTHYROXINE NA 125 MCG TABLET (FP) PO SCH (06:07)
[2021-11-06] MEDS ORDERED: CALCIUM GLUCONATE 10% - 1,000 MG/10 ML VIAL IVPB ONE (09:24)
[2021-11-06 09:33] LABS: HEMATOCRIT 34.7 % (32.4-45.2); HEMOGLOBIN 10.5 GM/dL (10.7-15.3); MCH 22.9 pg (25.7-33.7); MCHC 30.2 g/dl (32.0-36.0); MEAN CELL VOLUME 75.6 fl (80-96); RBC 4.59 M/mm3 (3.60-5.2); RDW 30.3 % (11.6-15.6); WHITE BLOOD COUNT 14.9 K/mm3 (4.0-10.0)
[2021-11-06] MEDS: LIDOCAINE 5% TOPICAL PATCH TP SCH (09:33)
[2021-11-06] MEDS: ALPRAZolam 1 MG TABLET PO PRN ×2 (09:33→21:22)
[2021-11-06] MEDS: AMINO ACIDS/PROTEIN HYDROLYS 30 ML LIQUID.PKT PO SCH ×2 (09:33→16:30)
[2021-11-06] MEDS: PANTOPRAZOLE 40 MG TABLET PO SCH (09:35)
[2021-11-06] MEDS: DEXAMETHASONE SOD PHOSPHATE 4 MG/1 ML VIAL IVPUSH SCH (09:35)
[2021-11-06] MEDS: APIXABAN 5 MG TABLET PO SCH ×2 (09:35→21:02)
[2021-11-06] MEDS: MULTIVITAMINS THER W-MINERALS COMBO TABLET (FP) PO SCH (09:35)
[2021-11-06] MEDS: FERROUS GLUCONATE 324 MG TAB (FP) PO SCH ×3 (09:35→16:30)
[2021-11-06] MEDS ORDERED: SODIUM ZIRCONIUM CYCLOSILICATE (LOKELMA) 5 GM PACKET PO SCH (10:00)
[2021-11-06 10:04] LABS: ALBUMIN 2.8 g/dl (3.4-5.0); CALCIUM 9.3 mg/dL (8.5-10.1)
[2021-11-06 10:05] LABS: BLOOD UREA NITROGEN 15.8 mg/dL (7-18); MAGNESIUM 2.3 mg/dL (1.8-2.4)
[2021-11-06 10:06] LABS: CREATININE 0.7 mg/dL (0.55-1.3)
[2021-11-06 10:07] LABS: BILIRUBIN,TOTAL 0.3 mg/dL (0.2-1); PHOSPHOROUS 5.6 mg/dL (2.5-4.9)
[2021-11-06 10:08] LABS: TOT PROT 6.9 g/dl (6.4-8.2)
[2021-11-06 10:23] LABS: ANISOCYTOSIS 2+; PLATELET ESTIMATE DECREASED
[2021-11-06] MEDS: ASCORBIC ACID 250 MG TABLET (FP) PO SCH (11:50)
[2021-11-06] MEDS: LIDOCAINE PATCH REMOVAL MC SCH (21:02)
[2021-11-06] MEDS: ATORVASTATIN CA 40 MG TABLET (FP) PO SCH (21:03)
[2021-11-07] MEDS ORDERED: methaDONE HCL 40 MG DISPERSABLE TABLET ONE (05:44)
[2021-11-07] MEDS ORDERED: methaDONE HCL 10 MG TABLET ONE (05:44)
[2021-11-07] MEDS: LEVOTHYROXINE NA 125 MCG TABLET (FP) PO SCH (06:33)
[2021-11-07] MEDS: AMINO ACIDS/PROTEIN HYDROLYS 30 ML LIQUID.PKT PO SCH ×2 (08:39→17:57)
[2021-11-07] MEDS: FERROUS GLUCONATE 324 MG TAB (FP) PO SCH ×3 (08:39→17:56)
[2021-11-07] MEDS: LIDOCAINE 5% TOPICAL PATCH TP SCH (09:06)
[2021-11-07] MEDS: APIXABAN 5 MG TABLET PO SCH ×2 (09:07→21:06)
[2021-11-07] MEDS: MULTIVITAMINS THER W-MINERALS COMBO TABLET (FP) PO SCH (09:07)
[2021-11-07] MEDS: DEXAMETHASONE SOD PHOSPHATE 4 MG/1 ML VIAL IVPUSH SCH (09:07)
[2021-11-07] MEDS: ALPRAZolam 1 MG TABLET PO PRN ×2 (09:07→21:05)
[2021-11-07] MEDS: PANTOPRAZOLE 40 MG TABLET PO SCH (09:08)
[2021-11-07] MEDS: ASCORBIC ACID 250 MG TABLET (FP) PO SCH (09:08)
[2021-11-07] MEDS: ACETAMINOPHEN 500 MG TABLET (FP) PO PRN ×2 (09:34→17:56)
[2021-11-07 10:51] LABS: ALBUMIN 2.9 g/dl (3.4-5.0); BLOOD UREA NITROGEN 18.6 mg/dL (7-18); MAGNESIUM 2.2 mg/dL (1.8-2.4)
[2021-11-07 10:54] LABS: CREATININE 0.7 mg/dL (0.55-1.3)
[2021-11-07 10:56] LABS: BILIRUBIN,TOTAL 0.4 mg/dL (0.2-1); TOT PROT 7.1 g/dl (6.4-8.2)
[2021-11-07] MEDS: POLYETHYLENE GLYCOL (HEALTHYLAX) 3350 17 GM PACKET PO SCH (20:52)
[2021-11-07] MEDS: SENNOSIDES 8.6MG TABLET (FP) PO SCH (21:05)
[2021-11-07] MEDS: ATORVASTATIN CA 40 MG TABLET (FP) PO SCH (21:06)
[2021-11-07] MEDS: LIDOCAINE PATCH REMOVAL MC SCH (21:06)
[2021-11-08] MEDS ORDERED: methaDONE HCL 40 MG DISPERSABLE TABLET ONE (05:04)
[2021-11-08] MEDS ORDERED: methaDONE HCL 10 MG TABLET ONE (05:04)
[2021-11-08] MEDS: LEVOTHYROXINE NA 125 MCG TABLET (FP) PO SCH (06:22)
[2021-11-08] MEDS: FERROUS GLUCONATE 324 MG TAB (FP) PO SCH ×3 (07:54→16:57)
[2021-11-08] MEDS: AMINO ACIDS/PROTEIN HYDROLYS 30 ML LIQUID.PKT PO SCH ×2 (07:54→16:57)
[2021-11-08] MEDS: POLYETHYLENE GLYCOL (HEALTHYLAX) 3350 17 GM PACKET PO SCH (09:56)
[2021-11-08] MEDS: ASCORBIC ACID 250 MG TABLET (FP) PO SCH (09:56)
[2021-11-08] MEDS: LIDOCAINE 5% TOPICAL PATCH TP SCH (09:56)
[2021-11-08] MEDS: PANTOPRAZOLE 40 MG TABLET PO SCH (09:57)
[2021-11-08] MEDS: APIXABAN 5 MG TABLET PO SCH (09:57)
[2021-11-08] MEDS: SENNOSIDES 8.6MG TABLET (FP) PO SCH (09:57)
[2021-11-08] MEDS: MULTIVITAMINS THER W-MINERALS COMBO TABLET (FP) PO SCH (09:57)
[2021-11-08] MEDS: DEXAMETHASONE SOD PHOSPHATE 4 MG/1 ML VIAL IVPUSH SCH (09:57)
[2021-11-08] MEDS: ALPRAZolam 1 MG TABLET PO PRN (09:58)
[2021-11-08] MEDS: ACETAMINOPHEN 500 MG TABLET (FP) PO PRN ×2 (09:58→18:01)
[2021-11-08] MEDS ORDERED: DEXAMETHASONE 4 MG TABLET (FP) PO ONE (10:21)
[2021-11-08 10:37] LABS: BASO % 0.4 % (0-2.0); HEMATOCRIT 37.3 % (32.4-45.2); HEMOGLOBIN 11.2 GM/dL (10.7-15.3); LYMPH % 19.6 % (8-40); MCH 22.9 pg (25.7-33.7); MEAN CELL VOLUME 76.4 fl (80-96); MEAN PLT VOLUME 8.1 fl (7.5-11.1); MONO % 6.9 % (3.8-10.2); NEUT % 72.1 % (42.8-82.8); RBC 4.88 M/mm3 (3.60-5.2); WHITE BLOOD COUNT 16.5 K/mm3 (4.0-10.0)
[2021-11-08 11:08] LABS: CALCIUM 9.5 mg/dL (8.5-10.1)
[2021-11-08 11:09] LABS: BLOOD UREA NITROGEN 21.3 mg/dL (7-18); MAGNESIUM 2.3 mg/dL (1.8-2.4)
[2021-11-08 11:10] LABS: BILIRUBIN,TOTAL 0.4 mg/dL (0.2-1); TOT PROT 7.3 g/dl (6.4-8.2)
[2021-11-08 11:12] LABS: CREATININE 0.7 mg/dL (0.55-1.3)
[2021-11-08 12:15] LABS: PLATELET ESTIMATE SIGNIFICANT INCREASE
[2021-11-08 19:25] VITALS: BP 133/62; PULSE 69; TEMP 97.9
== END 2021-11-08 20:18 | DRG 720 ==
LOC: JER 07:44 → JERBED 15:14 → J4W 10-13 02:09 → J5S 10-29 23:40
PROVIDERS: ADMIT Internal Medicine; ATTEND Internal Medicine
PROC: 30233N1 Transfusion of Nonautologous Red Blood Cells into Peripheral Vein, Percutaneous Approach (ICD-10-PCS; 2021-10-11)
PROC: 06H03DZ Insertion of Intraluminal Device into Inferior Vena Cava, Percutaneous Approach (ICD-10-PCS; principal; 2021-10-17)
PROC: 0DJ08ZZ Inspection of Upper Intestinal Tract, Via Natural or Artificial Opening Endoscopic (ICD-10-PCS; 2021-10-18)
PROC: XW033E5 Introduction of Remdesivir Anti-infective into Peripheral Vein, Percutaneous Approach, New Technology Group 5 (ICD-10-PCS; 2021-10-31)
PROC: 3E0333Z Introduction of Anti-inflammatory into Peripheral Vein, Percutaneous Approach (ICD-10-PCS; 2021-10-31)
DX: A41.59 Other Gram-negative sepsis (principal); I26.99 Other pulmonary embolism without acute cor pulmonale; K92.2 Gastrointestinal hemorrhage, unspecified; E03.9 Hypothyroidism, unspecified; F11.20 Opioid dependence, uncomplicated; D69.6 Thrombocytopenia, unspecified; R16.1 Splenomegaly, not elsewhere classified; D50.9 Iron deficiency anemia, unspecified; I25.10 Atherosclerotic heart disease of native coronary artery without angina pectoris; D72.829 Elevated white blood cell count, unspecified; J96.01 Acute respiratory failure with hypoxia; J96.02 Acute respiratory failure with hypercapnia; S42.252A Displaced fracture of greater tuberosity of left humerus, initial encounter for closed fracture; K21.00 Gastro-esophageal reflux disease with esophagitis, without bleeding; F41.8 Other specified anxiety disorders; M75.102 Unspecified rotator cuff tear or rupture of left shoulder, not specified as traumatic; M81.0 Age-related osteoporosis without current pathological fracture; J12.82 Pneumonia due to coronavirus disease 2019; N39.0 Urinary tract infection, site not specified; U07.1 COVID-19; T39.395A Adverse effect of other nonsteroidal anti-inflammatory drugs [NSAID], initial encounter; R74.01 Elevation of levels of liver transaminase levels; K44.9 Diaphragmatic hernia without obstruction or gangrene; K59.00 Constipation, unspecified; F17.210 Nicotine dependence, cigarettes, uncomplicated; E66.01 Morbid (severe) obesity due to excess calories; Z68.41 Body mass index [BMI] 40.0-44.9, adult; I27.20 Pulmonary hypertension, unspecified; E87.5 Hyperkalemia; R29.6 Repeated falls; D62 Acute posthemorrhagic anemia; R94.5 Abnormal results of liver function studies; B96.20 Unspecified Escherichia coli [E. coli] as the cause of diseases classified elsewhere; M25.519 Pain in unspecified shoulder; Z86.19 Personal history of other infectious and parasitic diseases; W18.39XA Other fall on same level, initial encounter; Y92.098 Other place in other non-institutional residence as the place of occurrence of the external cause
CPT/HCPCS: 36415; 36430; 36511; 37191; 70450-TC; 71045-TC-FY; 71275-TC; 72125-TC; 73523-TC-FY; 74176-TC; 76705-TC; 80048; 80053; 81003; 82105; 82272; 82550; 82728; 82784; 82803; 83010; 83516; 83540; 83550; 83605; 83615; 83735; 84100; 84443; 84484; 85025; 85027; 85032; 85045; 85379; 85384; 85610; 85730; 86038; 86140; 86704; 86803; 86850; 86900; 86901; 86922; 87040; 87086; 87186; 87340; 87517; 87522; 93005; 93010; 93306-TC; 93970-TC; 97116-GP; 97162-GP; 99285-25; C1769; C1880; C9399; C9803; J0131; J1644; J1756; P9038; P9058; Q9967; U0003; U0005